=== PATIENT | female | born 1935 | race American Indian/Alaskan Native ===

== ENCOUNTER 2017-09-16 11:49 | Inpatient (IN) | payer MEDICARE ==
[2017-09-16 11:53] VITALS: BMI 20.3
[2017-09-16 12:38] LABS: BASO # 0.1 K/uL (0.0-0.2); BASO % 0.9 % (0.0-2.0); EOS # 0.3 K/uL (0.0-0.7); EOS % 3.5 % (0.0-4.0); HEMATOCRIT 28.8 % (34.0-47.0); LYMPH # 1.8 K/uL (1.0-4.3); LYMPH % 21.1 % (20.0-40.0); MEAN CELL VOLUME 90.3 fL (81.0-99.0); MEAN CORPUSCULAR HEMOGLOBIN 29.8 pg (27.0-31.0); MEAN CORPUSCULAR HGB CONC 33.1 g/dL (33.0-37.0); MEAN PLATELET VOLUME 6.9 fL (7.2-11.7); MONO # 0.5 K/uL (0.0-0.8); MONO % 5.7 % (0.0-10.0); RED CELL DISTRIBUTION WIDTH 16.3 % (11.5-14.5); WHITE BLOOD COUNT 8.6 K/uL (4.8-10.8)
--- NOTE | 2017-09-16 12:49 | C.PDOC ---
History Of Present Illness 82 yr old female w/PMHx of iron def anemia, sent by Dr. Peacock for evaluation of rectal bleeding associated with fatigue and weight loss for the past few weeks. As per Dr. Peacock, multiple attempts were made for an outpatient colonoscopy were made but patient was unable to tolerate the prep at home. At present time, patient reports of rectal bleeding described as true bright red blood associated with intermittent diffuse lower abdominal pain. Otherwise, Patient denies recent antibiotic course, fever, chest pain, SOB, dyspnea, diaphoresis, palpitation, vomiting, weakness or numbness. Time Seen by Provider: 09/16/17 11:59 Chief Complaint (Nursing): GI Problem History Per: Patient History/Exam Limitations: no limitations Onset/Duration Of Symptoms: Days (Few weeks) Current Symptoms Are (Timing): Still Present Number Of Bleeding Episodes: Multiple: Past Medical History Reviewed: Historical Data, Nursing Documentation, Vital Signs Vital Signs: Last Vital Signs Temp 97.9 F 09/16/17 17:12 Pulse 55 L 09/16/17 17:12 Resp 20 09/16/17 17:12 BP 148/66 09/16/17 17:12 Pulse Ox 98 09/16/17 17:12 - Medical History PMH: Fractures (RIGHT FOOT-NO SURGERY), HTN, Hypothyroidism Family History: States: No Known Family Hx - Social History Hx Alcohol Use: No Hx Substance Use: No Review Of Systems Except As Marked, All Systems Reviewed And Found Negative. Constitutional: Positive for: Weight loss, Other ((+) Fatigue). Negative for: Fever Cardiovascular: Negative for: Chest Pain Respiratory: Negative for: Shortness of Breath Gastrointestinal: Positive for: Abdominal Pain (Lower), Other ((+) Rectal bleeding). Negative for: Nausea, Vomiting Neurological: Negative for: Weakness, Numbness Physical Exam - Physical Exam Appears: Well, Non-toxic, No Acute Distress Skin: Warm, Dry, No Rash Head: Normacephalic Eye(s): bilateral: PERRL Nose: No Flaring, No Discharge Oral Mucosa: Moist Throat: No Erythema, No Drooling Neck: Trachea Midline, Supple Respiratory: No Decreased Breath Sounds, No Accessory Muscle Use, No Rales, No Rhonchi, No Stridor, No Wheezing Gastrointestinal/Abdominal: Normal Exam, Soft, No Tenderness, No Guarding, No Rebound Rectal: Rectal Tone (normal), Hemorrhoids (External hemorrhoid. Non thrombosis. True blood noted.) Back: No CVA Tenderness Extremity: No Pedal Edema, No Swelling Neurological/Psych: Oriented x3, Normal Speech, Normal Motor ED Course And Treatment - Laboratory Results Result Diagrams: 09/16/17 12:34 1217 12:34 ECG: Interpreted By Me, Viewed By Me ECG Rhythm: Sinus Rhythm Interpretation Of ECG: No acute ST/T wave changes. Rate From EC (BPM) O2 Sat by Pulse Oximetry: 98 (RA) Pulse Ox Interpretation: Normal () - Radiology CXR: Interpreted by Me, Viewed By Me Progress Note: Case discussed with GI, plan for colonoscopy tomorrow AM for further evaluation of anemia associated with GI bleed. As per , no imaging requested in ED. Case discussed with and admission arranged. Medical Decision Making Medical Decision Making: PLAN: * EKG * CBC * CMP * Urinalysis Disposition - Disposition Disposition: HOSPITALIZED Disposition Time: 13:47 Condition: STABLE - Clinical Impression Clinical Impression: Gastrointestinal hemorrhage - PA / PERINATAL NURSE / Resident Statement MD/DO has reviewed & agrees with the documentation as recorded. - Scribe Statement The provider has reviewed the documentation as recorded by the Scribe Michelle Escobar All medical record entries made by the Dainaibloc were at my direction and personally dictated by me. I have reviewed the chart and agree that the record accurately reflects my personal performance of the history, physical exam, medical decision making, and the department course for this patient. I have also personally directed, reviewed, and agree with the discharge instructions and disposition.
[2017-09-16 12:50] LABS: ALB/GLOB RATIO 0.9 (1.0-2.1); BILIRUBIN,TOTAL 0.6 mg/dL (0.2-1.3); POTASSIUM 4.3 mmol/L (3.6-5.2); TOTAL PROTEIN 7.1 g/dL (6.3-8.3)
--- NOTE | 2017-09-16 13:09 | CP.PCM.CON ---
<Melissa Sevilla - Last Filed: 09/16/17 14:58> History of Present Illness - History of Present Illness History of Present Illness: GI Fellow PGY 4 Consult Note This is a 82 year old female with history of hypothyroidism, HTN who is presenting to ER with complaints of rectal bleeding. Pt was initially seen in the GI office for screening colonoscopy. She does report a 40 pound weight loss over the past 4 years with intermittent LLQ abdominal pain and intermittent rectal bleeding recently over the past 3 months. She had a colonoscopy 5 years ago which was normal per patient. Pt was scheduled as an outpt for colonoscopy however she was unable to tolerate bowel prep and procedure had to be canceled four times. Pt's Hgb was 8.8 in June of 2017 and in ER today Hgb 9.5. ROS: A 12pt ROS was negative except as above. PmHx: As stated in HPI PsHx: Denies SHx: Denies alcohol, former smoker, denies drugs FHx: Denies family hx of colon cancer Past Patient History - Past Medical History & Family History Past Medical History?: Yes - Past Social History Smoking Status: Never Smoked - CARDIAC Hx Hypertension: Yes - PULMONARY Hx Respiratory Disorders: No - NEUROLOGICAL Hx Neurological Disorder: No - HEENT Hx HEENT Problems: No - RENAL Hx Chronic Kidney Disease: No - ENDOCRINE/METABOLIC Hx Hypothyroidism: Yes - HEMATOLOGICAL/ONCOLOGICAL Hx Blood Disorders: No - INTEGUMENTARY Hx Dermatological Problems: No - MUSCULOSKELETAL/RHEUMATOLOGICAL Hx Fractures: Yes (RIGHT FOOT-NO SURGERY) - GASTROINTESTINAL Hx Gastrointestinal Disorders: No - GENITOURINARY/GYNECOLOGICAL Hx Genitourinary Disorders: No - PSYCHIATRIC Hx Substance Use: No - SURGICAL HISTORY Hx Surgeries: Yes Other/Comment: HX: SOME TYPE OF THYROID SURGERY- PT. NOT SURE IF TOTAL. - ANESTHESIA Hx Anesthesia: Yes Hx Anesthesia Reactions: No Hx Malignant Hyperthermia: No Meds Allergies/Adverse Reactions: Allergies Allergy/AdvReac Type Severity Reaction Status Date / Time No Known Allergies Allergy Verified 09/16/17 12:02 - Medications Medications: Current Medications Bisacodyl (Dulcolax) 10 mg PO ONCE ONE Stop: 09/16/17 15:01 Polyethylene Glycol/Electrolytes (Golytely) 4,000 ml PO ONCE ONE Stop: 09/16/17 14:05 Results - Vital Signs Recent Vital Signs: Last Vital Signs Temp 98.9 F 09/16/17 11:49 Pulse 76 09/16/17 11:49 Resp 20 09/16/17 11:49 BP 159/67 H 09/16/17 11:49 Pulse Ox 98 09/16/17 12:58 - Labs Result Diagrams: 09/16/17 12:34 09/16/17 12:34 Labs: Laboratory Results - last 24 hr 09/16/17 09/16/17 09/16/17 12:34 12:34 12:34 WBC 8.6 RBC 3.19 L Hgb 9.5 L Hct 28.8 L MCV 90.3 MCH 29.8 MCHC 33.1 RDW 16.3 H Plt Count 331 MPV 6.9 L Neut % (Auto) 68.8 Lymph % (Auto) 21.1 [place] % (Auto) 5.7 Eos % (Auto) 3.5 Baso % (Auto) 0.9 Neut # 5.9 Lymph # 1.8 [place] # 0.5 Eos # 0.3 Baso # 0.1 PT 11.5 INR 1.0 APTT 32 Sodium 139 Potassium 4.3 Chloride 104 Carbon Dioxide 33 H Anion Gap 6 L BUN 14 Creatinine 1.1 Est GFR ( Amer) 58 Est GFR (Non-Af Amer) 48 Random Glucose 103 Calcium 8.0 L Total Bilirubin 0.6 AST 24 ALT 31 Alkaline Phosphatase 62 Total Protein 7.1 Albumin 3.3 L Globulin 3.8 Albumin/Globulin Ratio 0.9 L Lipase 24 Assessment & Plan - Assessment and Plan (Free Text) Assessment: This is a 82yF presenting with complaints of rectal bleeding, abdominal pain and weight loss. Plan: -Continue supportive care with IVF hydration and monitor labs -Hgb stable at this time with no active GI bleeding, monitor H/H and transfuse as needed -Will plan for EGD/colonoscopy given unintentional weight loss, abdominal pain, and rectal bleeding in elderly patient, r/o underlying malignancy -Will start on clear liquid diet today, NPO after midnight for procedure -Will start bowel prep with Golytely today and Dulcolax po -Will check labs in am -Will continue to follow closely <Justin Sommer Y - Last Filed: 09/16/17 15:09> Meds - Medications Medications: Current Medications Bisacodyl (Dulcolax) 10 mg PO ONCE ONE Stop: 09/16/17 15:01 Last Admin: 09/16/17 14:36 Dose: 10 mg Sodium Chloride (Sodium Chloride 0.9%) 1,000 mls @ 60 mls/hr IV .[id number] SUMIT Results - Vital Signs Recent Vital Signs: Last Vital Signs Temp 99 F 09/16/17 14:41 Pulse 61 09/16/17 14:41 Resp 15 09/16/17 14:41 BP 148/74 09/16/17 14:41 Pulse Ox 100 09/16/17 14:41 - Labs Result Diagrams: 09/16/17 12:34 09/16/17 12:34 Labs: Laboratory Results - last 24 hr 09/16/17 09/16/17 09/16/17 12:34 12:34 12:34 WBC 8.6 RBC 3.19 L Hgb 9.5 L Hct 28.8 L MCV 90.3 MCH 29.8 MCHC 33.1 RDW 16.3 H Plt Count 331 MPV 6.9 L Neut % (Auto) 68.8 Lymph % (Auto) 21.1 [place] % (Auto) 5.7 Eos % (Auto) 3.5 Baso % (Auto) 0.9 Neut # 5.9 Lymph # 1.8 [place] # 0.5 Eos # 0.3 Baso # 0.1 PT 11.5 INR 1.0 APTT 32 Sodium 139 Potassium 4.3 Chloride 104 Carbon Dioxide 33 H Anion Gap 6 L BUN 14 Creatinine 1.1 Est GFR ( Amer) 58 Est GFR (Non-Af Amer) 48 Random Glucose 103 Calcium 8.0 L Total Bilirubin 0.6 AST 24 ALT 31 Alkaline Phosphatase 62 Total Protein 7.1 Albumin 3.3 L Globulin 3.8 Albumin/Globulin Ratio 0.9 L Lipase 24 Attending/Attestation - Attestation I have personally seen and examined this patient.: Yes I have fully participated in the care of the patient.: Yes I have reviewed all pertinent clinical information: Yes Notes (Text): 09/16/17 15:00 I have seen and examined patient with GI fellow. Agree with above documentation with the following additions. In brief, this is an 82 year old female with history of HTN, hypothyroidism who presents to hospital with complaint of fatigue and rectal bleeding. She reports symptoms getting progressively worse over the past 3 months. She describes having fresh red blood along with bowel movements and also a 40 pound unintentional weight loss over the past one year. Outpatient bloodwork was significant for microcytic iron deficiency anemia. She was scheduled for outpatient endoscopic evaluation but could not tolerate bowel preparation. Due to clinical deterioration, she was sent to hospital for further evaluation and workup. She denies abdominal pain, nausea, vomiting, fever/chills. Review of vitals from today shows elevated BP. Physical examination: General: well appearing, resting comfortably in bed HEENT: EOMI, normal appearing sclera Chest: CTA B/L CV: RRR S1S2 Abdomen: soft, non tender to palpation in four quadrants, no palpable hepato/ splenomegaly Ext: normal, no pitting edema Skin: normal, no lesions or evidence of skin break Neuro: AAOx3, CN 3-12 intact Psych: mood, affect appropriate Rectal bleeding Microcytic iron deficiency anemia HTN Unexplained weight loss - Liquid diet as tolerated - H/H stable, continue to monitor - Will plan for EGD/colonoscopy tomorrow for further evaluation of microcytic iron deficiency and unexplained weight loss in elderly patient, must rule out underlying malignancy - Outpatient CT imaging from July 2017 reviewed by me showing no gross intra abdominal pathology, though study was performed without contrast - Begin bowel preparation today, NPO after midnight - Further management and plan following results of endoscopic evaluation
[2017-09-16] MEDS ORDERED: Peg-Electrolyte Oral Soln 4L (Golytely) PO ONE (14:04)
[2017-09-16 15:00] LABS: RBC URINE 6 /hpf (0-3); URINE BACTERIA RARE (<OCC); URINE BILIRUBIN NEGATIVE (NEGATIVE); URINE COLOR Yellow (YELLOW); URINE GLUCOSE (UA) NORMAL (Normal); URINE KETONE NEGATIVE (NEGATIVE); URINE LEUKOCYTE ESTERASE NEG Leu/uL (Negative); URINE PROTEIN NEGATIVE (NEGATIVE); URINE UROBILINOGEN NORMAL mg/dL (0.2-1.0); WBC URINE 2 /hpf (0-5)
[2017-09-16] MEDS ORDERED: Bisacodyl 5mg EC Tab PO ONE (15:00)
[2017-09-16 15:01] LABS: URINE BLOOD 1+ (NEGATIVE)
[2017-09-16] MEDS ORDERED: Sodium Chloride 0.9% 1,000 ML ONE (15:07)
[2017-09-16] MEDS: Sodium Chloride 0.9% 1,000 ML IV SCH (18:54)
--- NOTE | 2017-09-16 20:47 | CARD ---
APPROVED REPORT EKG Measurement Heart [id number] <Conclusion> Normal sinus rhythm with sinus arrhythmia Nonspecific T wave abnormality Abnormal ECG
--- NOTE | 2017-09-16 22:00 | CP.PCM.HP ---
History of Present Illness - History of Present Illness History of Present Illness: CC: admitted for colonoscopy HPI:This is a 82 year old female who is known case of colon cancer with history of hypothyroidism, HTN who is presenting to ER with complaints of rectal bleeding. Pt refused any intervention for her colon cancer in past, but now when she was initially seen in the GI office report a 40 pound weight loss over the past 4 years with intermittent LLQ abdominal pain and intermittent rectal bleeding recently over the past 3 months. She had a colonoscopy 5 years ago which was normal per patient. Pt was scheduled as an outpt for colonoscopy however she was unable to tolerate bowel prep and procedure had to be canceled four times. Pt's Hgb was 8.8 in June of 2017 and in ER today Hgb 9.5. ROS: A 12pt ROS was negative except as above. PmHx: As stated in HPI PsHx: Denies SHx: Denies alcohol, former smoker, denies drugs FHx: Denies family hx of colon cancer Present on Admission - Present on Admission Any Indicators Present on Admission: Yes Review of Systems - Review of Systems Systems not reviewed;Unavailable: Acuity of Condition - Constitutional Constitutional: Fatigue, Lethargy, Weight Loss - EENT Eyes: absent: As Per HPI, Blind Spots, Blurred Vision, Change in Vision, Decreased Night Vision, Diplopia, Discharge, Dry Eye, Exophthalmos, Floaters, Irritation, Itchy Eyes, Loss of Peripheral Vision, Pain, Photophobia, Requires Corrective Lenses, Sees Flashes, Spots in Vision, Tunnel Vision, Other Visual Disturbances, Loss of Vision, Other Nose/Mouth/Throat: absent: As Per HPI, Epistaxis, Nasal Congestion, Nasal Discharge, Nasal Obstruction, Nasal Trauma, Nose Pain, Post Nasal Drip, Sinus Pain, Sinus Pressure, Bleeding Gums, Change in Voice, Dental Pain, Dry Mouth, Dysphagia, Halitosis, Hoarsness, Lip Swelling, Mouth Lesions, Mouth Pain, Odynophagia, Sore Throat, Throat Swelling, Tongue Swelling, Facial Pain, Neck Pain, Neck Mass, Other - Cardiovascular Cardiovascular: absent: As Per HPI, Acrocyanosis, Chest Pain, Chest Pain at Rest , Chest Pain with Activity, Claudication, Diaphoresis, Dyspnea, Dyspnea on Exertion, Edema, Irregular Heart Rhythm, Pain Radiating to Arm/Neck/Jaw, Leg Edema, Leg Ulcers, Lightheadedness, Orthopnea, Palpitations, Paroxysmal Nocturnal Dyspnea, Pedal Edema, Radiating Pain, Rapid Heart Rate, Slow Heart Rate, Syncope, Other - Respiratory Respiratory: absent: As Per HPI, Cough, Dyspnea, Hemoptysis, Dyspnea on Exertion , Wheezing, Snoring, Stridor, Pain on Inspiration, Chest Congestion, Excessive Mucous Production, Change in Mucous Color, Pain with Coughing, Other - Gastrointestinal Gastrointestinal: Abdominal Pain - Genitourinary Genitourinary: absent: As Per HPI, Change in Urinary Stream, Difficulty Urinating, Dysuria, Flank Pain, Hematuria, Pyuria, Nocturia, Urinary Incontinence, Urinary Frequency, Urinary Hesitance, Urinary Urgency, Voiding Freq/Small Amts, Freq UTI, Hx Renal/Bladder Calculi, Hx /Renal Surgery, Bladder Distension, Other Past Patient History - Past Medical History & Family History Past Medical History?: Yes - Past Social History Smoking Status: Former Smoker - CARDIAC Hx Hypertension: Yes - PULMONARY Hx Respiratory Disorders: No - NEUROLOGICAL Hx Neurological Disorder: No - HEENT Hx HEENT Problems: No - RENAL Hx Chronic Kidney Disease: No - ENDOCRINE/METABOLIC Hx Hypothyroidism: Yes - HEMATOLOGICAL/ONCOLOGICAL Hx Blood Disorders: No - INTEGUMENTARY Hx Dermatological Problems: No - MUSCULOSKELETAL/RHEUMATOLOGICAL Hx Falls: Yes Hx Fractures: Yes (RIGHT FOOT-NO SURGERY) - GASTROINTESTINAL Hx Gastrointestinal Disorders: No - GENITOURINARY/GYNECOLOGICAL Hx Genitourinary Disorders: No - PSYCHIATRIC Hx Psychophysiologic Disorder: No Hx Substance Use: No - SURGICAL HISTORY Hx Surgeries: Yes Other/Comment: HX: SOME TYPE OF THYROID SURGERY- PT. NOT SURE IF TOTAL. - ANESTHESIA Hx Anesthesia: Yes Hx Anesthesia Reactions: No Hx Malignant Hyperthermia: No Has any member of the family had a problem w/ anesthesia?: No Meds Allergies/Adverse Reactions: Allergies Allergy/AdvReac Type Severity Reaction Status Date / Time No Known Allergies Allergy Verified 09/16/17 12:02 Physical Exam - Constitutional Appears: No Acute Distress, Chronically Ill - Eye Exam Eye Exam: EOMI, Normal appearance, PERRL Pupil Exam: NORMAL ACCOMODATION, PERRL - Respiratory Exam Respiratory Exam: Clear to Auscultation Bilateral, NORMAL BREATHING PATTERN - Cardiovascular Exam Cardiovascular Exam: REGULAR RHYTHM - GI/Abdominal Exam GI & Abdominal Exam: Tenderness - Rectal Exam Rectal Exam: Deferred Results - Vital Signs Recent Vital Signs: Last Vital Signs Temp 97.9 F 09/16/17 17:12 Pulse 55 L 09/16/17 17:12 Resp 20 09/16/17 17:12 BP 148/66 09/16/17 17:12 Pulse Ox 98 09/16/17 18:52 - Labs Result Diagrams: 09/16/17 12:34 09/16/17 12:34 Labs: Laboratory Results - last 24 hr 09/16/17 09/16/17 09/16/17 12:34 12:34 12:34 WBC 8.6 RBC 3.19 L Hgb 9.5 L Hct 28.8 L MCV 90.3 MCH 29.8 MCHC 33.1 RDW 16.3 H Plt Count 331 MPV 6.9 L Neut % (Auto) 68.8 Lymph % (Auto) 21.1 [place] % (Auto) 5.7 Eos % (Auto) 3.5 Baso % (Auto) 0.9 Neut # 5.9 Lymph # 1.8 [place] # 0.5 Eos # 0.3 Baso # 0.1 PT 11.5 INR 1.0 APTT 32 Sodium 139 Potassium 4.3 Chloride 104 Carbon Dioxide 33 H Anion Gap 6 L BUN 14 Creatinine 1.1 Est GFR ( Amer) 58 Est GFR (Non-Af Amer) 48 Random Glucose 103 Calcium 8.0 L Total Bilirubin 0.6 AST 24 ALT 31 Alkaline Phosphatase 62 Total Protein 7.1 Albumin 3.3 L Globulin 3.8 Albumin/Globulin Ratio 0.9 L Lipase 24 Urine Color Urine Clarity Urine pH Ur Specific [place] Urine Protein Urine Glucose (UA) Urine Ketones Urine Blood Urine Nitrate Urine Bilirubin Urine Urobilinogen Ur Leukocyte Esterase Urine WBC (Auto) Urine RBC (Auto) Ur Squamous Epith Cells Urine Bacteria 09/16/17 14:38 WBC RBC Hgb Hct MCV MCH MCHC RDW Plt Count MPV Neut % (Auto) Lymph % (Auto) [place] % (Auto) Eos % (Auto) Baso % (Auto) Neut # Lymph # [place] # Eos # Baso # PT INR APTT Sodium Potassium Chloride Carbon Dioxide Anion Gap BUN Creatinine Est GFR ( Amer) Est GFR (Non-Af Amer) Random Glucose Calcium Total Bilirubin AST ALT Alkaline Phosphatase Total Protein Albumin Globulin Albumin/Globulin Ratio Lipase Urine Color Yellow Urine Clarity Clear Urine pH 6.0 Ur Specific [place] 1.011 Urine Protein Negative Urine Glucose (UA) Normal Urine Ketones Negative Urine Blood 1+ H Urine Nitrate Negative Urine Bilirubin Negative Urine Urobilinogen Normal Ur Leukocyte Esterase Neg Urine WBC (Auto) 2 Urine RBC (Auto) 6 H Ur Squamous Epith Cells 1 Urine Bacteria Rare Assessment & Plan (1) Abdominal pain Assessment and Plan: Rectal bleeding Microcytic iron deficiency anemia HTN Unexplained weight loss - Liquid diet as tolerated - H/H stable, continue to monitor - Will plan for EGD/colonoscopy tomorrow for further evaluation of microcytic iron deficiency and unexplained weight loss in elderly patient, must rule out underlying malignancy - Outpatient CT imaging from July 2017 reviewed by me showing no gross intra abdominal pathology, though study was performed without contrast - Begin bowel preparation today, NPO after midnight - Further management and plan following results of endoscopic evaluation Status: Acute (2) Gastrointestinal hemorrhage Status: Acute
[2017-09-17 07:00] LABS: HEMATOCRIT 23.9 % (34.0-47.0); MEAN CELL VOLUME 90.1 fL (81.0-99.0); MEAN CORPUSCULAR HGB CONC 34.4 g/dL (33.0-37.0); MEAN PLATELET VOLUME 7.1 fL (7.2-11.7); RED CELL DISTRIBUTION WIDTH 16.2 % (11.5-14.5); WHITE BLOOD COUNT 7.1 K/uL (4.8-10.8)
[2017-09-17 07:07] LABS: INR 1.1
[2017-09-17 07:53] LABS: ALB/GLOB RATIO 1.3 (1.0-2.1); ALKALINE PHOSPHATASE 49 U/L (38-126); ALT/SGPT 28 U/L (9-52); AST/SGOT 30 U/L (14-36); BILIRUBIN,TOTAL 0.4 mg/dL (0.2-1.3); BLOOD UREA NITROGEN 12 mg/dL (7-17); CALCIUM 7.6 mg/dl (8.6-10.4); CARBON DIOXIDE 31 mmol/L (22-30); CHLORIDE 108 mmol/L (98-107); GFR AFRICAN-AMERICAN > 60; GLUCOSE,RANDOM 78 mg/dL (65-105); POTASSIUM 4.3 mmol/L (3.6-5.2); SODIUM 140 mmol/L (132-148); TOTAL PROTEIN 4.8 g/dL (6.3-8.3)
[2017-09-17] MEDS ORDERED: Propofol 10 mg/ml Inj (20 ML) ONE ×2 (11:43)
[2017-09-17] MEDS ORDERED: Lidocaine Hydrochloride 5 ML INJ ONE (11:45)
[2017-09-17] MEDS: Sodium Chloride 0.9% 1,000 ML IV SCH (13:23)
--- NOTE | 2017-09-17 14:54 | CP.PCM.CON ---
Past Patient History - Past Medical History & Family History Past Medical History?: Yes - Past Social History Smoking Status: Former Smoker - CARDIAC Hx Hypertension: Yes - PULMONARY Hx Respiratory Disorders: No - NEUROLOGICAL Hx Neurological Disorder: No - HEENT Hx HEENT Problems: No - RENAL Hx Chronic Kidney Disease: No - ENDOCRINE/METABOLIC Hx Hypothyroidism: Yes - HEMATOLOGICAL/ONCOLOGICAL Hx Blood Disorders: No - INTEGUMENTARY Hx Dermatological Problems: No - MUSCULOSKELETAL/RHEUMATOLOGICAL Hx Falls: Yes Hx Fractures: Yes (RIGHT FOOT-NO SURGERY) - GASTROINTESTINAL Hx Gastrointestinal Disorders: No - GENITOURINARY/GYNECOLOGICAL Hx Genitourinary Disorders: No - PSYCHIATRIC Hx Psychophysiologic Disorder: No Hx Substance Use: No - SURGICAL HISTORY Hx Surgeries: Yes Other/Comment: HX: SOME TYPE OF THYROID SURGERY- PT. NOT SURE IF TOTAL. - ANESTHESIA Hx Anesthesia: Yes Hx Anesthesia Reactions: No Hx Malignant Hyperthermia: No Has any member of the family had a problem w/ anesthesia?: No Meds Allergies/Adverse Reactions: Allergies Allergy/AdvReac Type Severity Reaction Status Date / Time No Known Allergies Allergy Verified 09/16/17 12:02 - Medications Medications: Current Medications Sodium Chloride (Sodium Chloride 0.9%) 1,000 mls @ 60 mls/hr IV .[id number] SUMIT Last Admin: 09/17/17 13:23 Dose: 60 mls/hr Lactated Ringer's (Lactated Ringer's 500ml) 500 mls @ 75 mls/hr IV .[id number] SUMIT Iohexol (Omnipaque 240 (50 Ml)) 50 ml PO ONCE ONE Stop: 09/17/17 15:01 Results - Vital Signs Recent Vital Signs: Last Vital Signs Temp 96.8 F L 09/17/17 12:20 Pulse 58 L 09/17/17 12:50 Resp 12 09/17/17 12:50 BP 153/86 H 09/17/17 12:50 Pulse Ox 100 09/17/17 12:50 - Labs Result Diagrams: 09/17/17 06:48 09/17/17 06:48 Labs: Laboratory Results - last 24 hr 09/16/17 09/17/17 09/17/17 14:38 06:48 06:48 WBC 7.1 RBC 2.65 L Hgb 8.2 L Hct 23.9 L MCV 90.1 MCH 31.0 MCHC 34.4 RDW 16.2 H Plt Count 262 MPV 7.1 L PT 12.2 INR 1.1 Sodium Potassium Chloride Carbon Dioxide Anion Gap BUN Creatinine Est GFR ( Amer) Est GFR (Non-Af Amer) Random Glucose Calcium Total Bilirubin AST ALT Alkaline Phosphatase Total Protein Albumin Globulin Albumin/Globulin Ratio Urine Color Yellow Urine Clarity Clear Urine pH 6.0 Ur Specific [place] 1.011 Urine Protein Negative Urine Glucose (UA) Normal Urine Ketones Negative Urine Blood 1+ H Urine Nitrate Negative Urine Bilirubin Negative Urine Urobilinogen Normal Ur Leukocyte Esterase Neg Urine WBC (Auto) 2 Urine RBC (Auto) 6 H Ur Squamous Epith Cells 1 Urine Bacteria Rare 09/17/17 06:48 WBC RBC Hgb Hct MCV MCH MCHC RDW Plt Count MPV PT INR Sodium 140 Potassium 4.3 Chloride 108 H Carbon Dioxide 31 H Anion Gap 6 L BUN 12 Creatinine 0.9 Est GFR ( Amer) > 60 Est GFR (Non-Af Amer) > 60 Random Glucose 78 Calcium 7.6 L Total Bilirubin 0.4 AST 30 ALT 28 Alkaline Phosphatase 49 Total Protein 4.8 L Albumin 2.7 L Globulin 2.1 L Albumin/Globulin Ratio 1.3 Urine Color Urine Clarity Urine pH Ur Specific [place] Urine Protein Urine Glucose (UA) Urine Ketones Urine Blood Urine Nitrate Urine Bilirubin Urine Urobilinogen Ur Leukocyte Esterase Urine WBC (Auto) Urine RBC (Auto) Ur Squamous Epith Cells Urine Bacteria
[2017-09-17] MEDS ORDERED: Iohexol 240 (50 ml) PO ONE (15:00)
[2017-09-17 17:47] LABS: BASO # 0.1 K/uL (0.0-0.2); BASO % 0.6 % (0.0-2.0); EOS # 0.3 K/uL (0.0-0.7); EOS % 3.2 % (0.0-4.0); HEMATOCRIT 27.9 % (34.0-47.0); LYMPH # 1.7 K/uL (1.0-4.3); LYMPH % 17.2 % (20.0-40.0); MEAN CELL VOLUME 91.1 fL (81.0-99.0); MEAN CORPUSCULAR HGB CONC 32.9 g/dL (33.0-37.0); MEAN PLATELET VOLUME 7.2 fL (7.2-11.7); MONO # 0.6 K/uL (0.0-0.8); MONO % 6.1 % (0.0-10.0); RED CELL DISTRIBUTION WIDTH 16.2 % (11.5-14.5); WHITE BLOOD COUNT 9.6 K/uL (4.8-10.8)
[2017-09-17] MEDS ORDERED: Iodixanol 320 mg/ml 150 ml Bottle IV ONE (17:47)
--- NOTE | 2017-09-17 18:38 | CT ---
PROCEDURE: CT Abdomen and Pelvis with contrast HISTORY: distal colon obstructing lesion COMPARISON: None. TECHNIQUE: Contrast dose: 100 cc Visipaque 320 Radiation dose: Total exam DLP = 309.50 mGy-cm. This CT exam was performed using one or more of the following dose reduction techniques: Automated exposure control, adjustment of the mA and/or kV according to patient size, and/or use of iterative reconstruction technique. FINDINGS: LOWER THORAX: No suspicious pulmonary nodules in the visualize lower lung christina. Edema about the soft tissues directly both breasts suggest a systemic etiology. LIVER: Hepatic steatosis. Tiny sub cm cystic lesions too small to characterize with a higher degree of certainty, clarity. Although likely benign, of hepatic metastatic disease should be considered. GALLBLADDER AND BILE DUCTS: Unremarkable. PANCREAS: The pancreas is atrophic, of visualized pancreatic duct and more proximal pancreas are unremarkable, there is no obstructing lesion, evidence stricture or other explanation common the etiology for this finding. SPLEEN: Unremarkable. ADRENALS: Unremarkable. No mass. KIDNEYS AND URETERS: Unremarkable. No hydronephrosis. No solid mass. Incidental finding(s): Simple cyst left kidney 3.9 x 4.8 cm. Smaller left renal cyst also identified measuring 2.1 cm. VASCULATURE: Unremarkable. No aortic aneurysm. BOWEL: Large fungating circumferential, polypoid mass and elevating the sigmoid colon sparing the descending colon extending to the rectum, the anal rectal verge is unaffected. The mass extends over a distance of approximately 12 cm. Despite the size and circumferential nature the proximal colon is dilated but not obstructed. Focal thickening of the wall of the proximal stomach primarily about the lesser curve. This extends to cardia/gastroesophageal junction. The area of interest is marked on the axial images, confirmed on orthogonal planes. APPENDIX: Normal appendix. PERITONEUM: Unremarkable. No free fluid. No free air. LYMPH NODES: Unremarkable. No enlarged lymph nodes. BLADDER: Unremarkable. REPRODUCTIVE: Unremarkable. BONES: No acute fracture. OTHER FINDINGS: IMPRESSION: 1. Large rectal mass described in greater detail above. 2. Gastric mass along the lesser curve extending to the gastroesophageal junction. Follow-up advised. 3. Sub cm masses in the liver too small to characterize with certainty. In the clinical setting of rectal mass, rectal bleeding and suspected rectal neoplasm follow-up of the liver lesions advised. Additional benign and/or incidental findings described above.
--- NOTE | 2017-09-17 21:02 | CT ---
EXAM: CT Chest Without Intravenous Contrast EXAM DATE/TIME: 09/17/2017 6:39 PM CLINICAL HISTORY: 82 years old, female; Signs and symptoms; Shortness of breath; Additional info: Gi bleed; rectal and gastric masses seen on CT abdomen pelvis 09/17/17 TECHNIQUE: Axial computed tomography images of the chest without intravenous contrast. All CT scans at this facility use one or more dose reduction techniques, viz.: automated exposure control; ma/kV adjustment per patient size (including targeted exams where dose is matched to indication; i.e. head); or iterative reconstruction technique. Coronal and sagittal reformatted images were created and reviewed. COMPARISON: There are no prior studies for comparison. FINDINGS: Lungs and pleural spaces: Trachea and main bronchi are patent. The lungs are well inflated. There is minimal apical scarring. There is prominence of interstitial markings. There is atelectasis/scarring greatest in the lung bases. There are no pulmonary nodules. There are no effusions. Heart and vasculature: The heart is mildly enlarged. There is trace fluid in pericardial recesses.There are coronary artery calcifications. There are calcifications in the aorta.Aorta and main pulmonary artery are normal in caliber. Thyroid: Thyroid is not optimally demonstrated. There are multiple surgical clips in the right thyroid bed. Bones/joints: Bony structures are osteopenic with degenerative change. Soft tissues: unremarkable Mediastinum: Esophagus is not well demonstrated. There are no pathologically enlarged mediastinal nodes.Xiomy are not optimally evaluated without contrast material. Upper abdomen: There is a mass in the gastric fundus. There is a left renal cyst. IMPRESSION: No acute disease in the chest; prior thyroid surgery; gastric mass
--- NOTE | 2017-09-17 23:38 | CP.PCM.PN ---
Subjective - Date & Time of Evaluation Date of Evaluation: 09/17/17 Time of Evaluation: 18:40 - Subjective Subjective: Pt seen and examined, is found to have large mass in abdomen, pt is for OR , clinically stable Objective - Vital Signs/Intake and Output Vital Signs (last 24 hours): Temp Pulse Resp BP Pulse Ox 98 F 62 20 179/70 H 100 09/17/17 16:00 09/17/17 16:00 09/17/17 16:00 09/17/17 16:00 09/17/17 16:00 Intake and Output: 09/17/17 09/18/17 18:59 06:59 Intake Total 425 Balance 425 - Medications Medications: Current Medications Erythromycin (Erythocin) 1,000 mg PO ONCE ONE Stop: 09/18/17 14:01 Erythromycin (Erythocin) 1,000 mg PO ONCE ONE Stop: 09/18/17 15:01 Erythromycin (Erythocin) 1,000 mg PO ONCE ONE Stop: 09/18/17 22:01 Sodium Chloride (Sodium Chloride 0.9%) 1,000 mls @ 60 mls/hr IV .[id number] [facility] Last Admin: 09/17/17 13:23 Dose: 60 mls/hr Lactated Ringer's (Lactated Ringer's 500ml) 500 mls @ 75 mls/hr IV .Q6H40M [facility] Levothyroxine Sodium (Synthroid) 100 mcg PO DAILY@0630 [facility] Losartan Potassium (Cozaar) 100 mg PO DAILY [facility] Neomycin Sulfate (Neomycin Tab) 1,000 mg PO ONCE ONE Stop: 09/18/17 14:01 Neomycin Sulfate (Neomycin Tab) 1,000 mg PO ONCE ONE Stop: 09/18/17 15:01 Neomycin Sulfate (Neomycin Tab) 1,000 mg PO ONCE ONE Stop: 09/18/17 22:01 Polyethylene Glycol/Electrolytes (Golytely) 2,000 ml PO ONCE ONE Stop: 09/18/17 18:01 - Labs Labs: 09/17/17 17:26 09/17/17 06:48 PT 12.2 SECONDS (9.7-12.2) 09/17/17 06:48 INR 1.1 09/17/17 06:48 APTT 32 SECONDS (21-34) 09/16/17 12:34 - Constitutional Appears: No Acute Distress - Head Exam Head Exam: ATRAUMATIC, NORMAL INSPECTION, NORMOCEPHALIC - Eye Exam Eye Exam: EOMI, Normal appearance, PERRL Pupil Exam: NORMAL ACCOMODATION, PERRL - Respiratory Exam Respiratory Exam: Clear to Ausculation Bilateral, NORMAL BREATHING PATTERN - Cardiovascular Exam Cardiovascular Exam: REGULAR RHYTHM, +S1, +S2. absent: Murmur - GI/Abdominal Exam GI & Abdominal Exam: Soft, Normal Bowel Sounds. absent: Tenderness Assessment and Plan (1) Abdominal pain Status: Acute (2) Gastrointestinal hemorrhage Status: Acute
--- NOTE | 2017-09-18 00:03 | CON ---
DATE: 09/17/2017 HISTORY OF PRESENT ILLNESS: The patient is an 82-year-old woman admitted to the hospital on 09/16 on an urgent basis because of rectal bleeding. The other details of her past medical history are listed. PAST MEDICAL HISTORY: The medical history is also noted diabetes, hypertension, and smoking. PAST SURGICAL HISTORY: Includes thyroidectomy, hysterectomy. Both reportedly done for benign disease. SOCIAL HISTORY: She lives with her family who is very concerned about her. She has three sons. No one else has had intestinal problems. She is retired. She does not drink or smoke. REVIEW OF SYSTEMS: Thirteen-point is obtained. She denied any other systemic complaints including cardiac or neurological problems. She has had rectal bleeding. She has not had any problems or prior gynecological problems since her hysterectomy. PHYSICAL EXAMINATION: VITAL SIGNS: Her height and weight are as recorded on the emergency notes. Her blood pressure is stable at 110/70, pulse rate is 62. ABDOMEN: Exam is basically unremarkable without any tenderness or masses detailed. RECTAL: Exam does not show any palpable mass. It did show some loose liquid stool, but I was unable to palpate any mass on my digital rectal exam, which was done on the left lateral position. 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 RECOMMENDATIONS: My recommendation is that the patient have a CAT scan done that she then undergo surgery on a fairly urgent basis because this is partially obstructing. I think the CAT scan will give us a better idea as to whether or not this is a T2 or T3 lesion or whether any adjuvant therapy would be required, but we can get some better idea of this from the other imaging. We will follow the patient closely. Tentative plan is to carry out an intervention on Friday. Possibility of an ostomy was discussed and reviewed with the family. Xavier Miner Jr., MD
[2017-09-18] MEDS: Sodium Chloride 0.9% 1,000 ML IV SCH (01:00)
[2017-09-18] MEDS: Lactated Ringer's 500 ML IV SCH (02:00)
[2017-09-18] MEDS: Levothyroxine 100 MCG TAB PO SCH (05:51)
--- NOTE | 2017-09-18 08:57 | CP.PCM.PN ---
Subjective - Date & Time of Evaluation Date of Evaluation: 09/18/17 Time of Evaluation: 06:45 - Subjective Subjective: Gen sx: Dr Miner Pt S&E. NAEO. Reports no pain, nausea, vomiting, fevers or chills. Denies any blood bowel movements. Pt is aware of findings on imaging and procedures, and is aware of plan for surgery tomorrow. Dr Miner d/w pt and daughter who is bedside. Pt for bowel prep today Objective - Vital Signs/Intake and Output Vital Signs (last 24 hours): Temp Pulse Resp BP Pulse Ox 98 F 75 20 124/53 L 96 09/18/17 08:36 09/18/17 08:36 09/18/17 08:36 09/18/17 08:36 09/18/17 08:36 Intake and Output: 09/18/17 09/18/17 06:59 18:59 Intake Total 630 Balance 630 - Medications Medications: Current Medications Erythromycin (Erythocin) 1,000 mg PO ONCE ONE Stop: 09/18/17 14:01 Erythromycin (Erythocin) 1,000 mg PO ONCE ONE Stop: 09/18/17 15:01 Erythromycin (Erythocin) 1,000 mg PO ONCE ONE Stop: 09/18/17 22:01 Lactated Ringer's (Lactated Ringer's 500ml) 500 mls @ 75 mls/hr IV .Q6H40M [facility] Last Admin: 09/18/17 02:00 Dose: Not Given Levothyroxine Sodium (Synthroid) 100 mcg PO DAILY@0630 [facility] Last Admin: 09/18/17 05:51 Dose: 100 mcg Losartan Potassium (Cozaar) 100 mg PO DAILY [facility] Neomycin Sulfate (Neomycin Tab) 1,000 mg PO ONCE ONE Stop: 09/18/17 14:01 Neomycin Sulfate (Neomycin Tab) 1,000 mg PO ONCE ONE Stop: 09/18/17 15:01 Neomycin Sulfate (Neomycin Tab) 1,000 mg PO ONCE ONE Stop: 09/18/17 22:01 Polyethylene Glycol/Electrolytes (Golytely) 2,000 ml PO ONCE ONE Stop: 09/18/17 18:01 - Labs Labs: 09/17/17 17:26 09/17/17 06:48 PT 12.2 SECONDS (9.7-12.2) 09/17/17 06:48 INR 1.1 09/17/17 06:48 APTT 32 SECONDS (21-34) 09/16/17 12:34 - Constitutional Appears: Non-toxic, No Acute Distress - ENT Exam ENT Exam: Mucous Membranes Moist - Respiratory Exam Respiratory Exam: absent: Accessory Muscle Use, Respiratory Distress - Cardiovascular Exam Cardiovascular Exam: REGULAR RHYTHM. absent: Tachycardia - GI/Abdominal Exam GI & Abdominal Exam: Soft. absent: Distended, Firm, Guarding, Rigid, Tenderness - Extremities Exam Extremities Exam: absent: Pedal Edema - Neurological Exam Neurological Exam: Alert, Awake, Oriented x3 Assessment and Plan - Assessment and Plan (Free Text) Assessment: 82F with near obstructing and bleeding mass in the recto-sigmoid junction Plan: NPO @ MN type and cross 2 units for tomorrow Bell-Condin prep w/ PEG today cleared by medicine for surgery d/w Dr Isidra Grimaldo, PGY3
--- NOTE | 2017-09-18 11:09 | CP.PCM.PN ---
<Melissa Sevilla - Last Filed: 09/18/17 11:07> Subjective - Date & Time of Evaluation Date of Evaluation: 09/18/17 Time of Evaluation: 07:05 - Subjective Subjective: GI Fellow PGY4 Progress Note Pt seen and evaluated at bedside, pt doing okay after colonoscopy no abdominal pain. Pt denies any rectal bleeding at this time, she is tolerating her clear liquid diet. ROS: A 12pt ROS was negative except as above. Objective - Vital Signs/Intake and Output Vital Signs (last 24 hours): Temp Pulse Resp BP Pulse Ox 98 F 75 20 124/53 L 96 09/18/17 08:36 09/18/17 08:36 09/18/17 08:36 09/18/17 08:36 09/18/17 08:36 Intake and Output: 09/18/17 09/18/17 06:59 18:59 Intake Total 630 Balance 630 - Medications Medications: Current Medications Erythromycin (Erythocin) 1,000 mg PO ONCE ONE Stop: 09/18/17 14:01 Erythromycin (Erythocin) 1,000 mg PO ONCE ONE Stop: 09/18/17 15:01 Erythromycin (Erythocin) 1,000 mg PO ONCE ONE Stop: 09/18/17 22:01 Lactated Ringer's (Lactated Ringer's 500ml) 500 mls @ 75 mls/hr IV .Q6H40M [facility] Last Admin: 09/18/17 02:00 Dose: Not Given Levothyroxine Sodium (Synthroid) 100 mcg PO DAILY@0630 [facility] Last Admin: 09/18/17 05:51 Dose: 100 mcg Losartan Potassium (Cozaar) 100 mg PO DAILY [facility] Last Admin: 09/18/17 10:10 Dose: 100 mg Neomycin Sulfate (Neomycin Tab) 1,000 mg PO ONCE ONE Stop: 09/18/17 14:01 Neomycin Sulfate (Neomycin Tab) 1,000 mg PO ONCE ONE Stop: 09/18/17 15:01 Neomycin Sulfate (Neomycin Tab) 1,000 mg PO ONCE ONE Stop: 09/18/17 22:01 Polyethylene Glycol/Electrolytes (Golytely) 2,000 ml PO ONCE ONE Stop: 09/18/17 18:01 - Labs Labs: 09/17/17 17:26 09/17/17 06:48 PT 12.2 SECONDS (9.7-12.2) 09/17/17 06:48 INR 1.1 09/17/17 06:48 APTT 32 SECONDS (21-34) 09/16/17 12:34 - Constitutional Appears: Non-toxic, No Acute Distress, Cachectic - Head Exam Head Exam: ATRAUMATIC, NORMAL INSPECTION, NORMOCEPHALIC - Eye Exam Eye Exam: EOMI, Normal appearance, PERRL Pupil Exam: PERRL - ENT Exam ENT Exam: Mucous Membranes Moist, Normal Exam - Neck Exam Neck Exam: Full ROM, Normal Inspection - Respiratory Exam Respiratory Exam: Clear to Ausculation Bilateral, NORMAL BREATHING PATTERN - Cardiovascular Exam Cardiovascular Exam: REGULAR RHYTHM, RRR - GI/Abdominal Exam GI & Abdominal Exam: Soft, Normal Bowel Sounds. absent: Distended, Guarding, Tenderness - Rectal Exam Rectal Exam: Deferred - Extremities Exam Extremities Exam: Full ROM, Normal Inspection - Back Exam Back Exam: NORMAL INSPECTION - Neurological Exam Neurological Exam: Alert, Awake, Oriented x3 - Psychiatric Exam Psychiatric exam: Normal Affect, Normal Mood - Skin Skin Exam: Dry, Intact, Normal Color, Warm Assessment and Plan - Assessment and Plan (Free Text) Assessment: This is a 82yF presenting with complaints of rectal bleeding, abdominal pain and weight loss. 1. Rectal mass 2. Unintentional weightloss 3. Abdominal pain, rectal bleeding Plan: -Continue supportive care with IVF hydration and monitor labs -Hgb stable at this time with no active GI bleeding, monitor H/H and transfuse as needed -Pt is s/p EGD/colonoscopy given unintentional weight loss, abdominal pain, and rectal bleeding in elderly patient, EGD negative for any malignancy, colonoscopy with 5cm recto-sigmoid mass -Appreciate surgical consultation and plan for OR tomorrow -Continue clear liquid diet today, NPO after midnight for surgery -Will continue to follow closely <Justin Sommer - Last Filed: 09/18/17 17:57> Objective - Vital Signs/Intake and Output Vital Signs (last 24 hours): Temp Pulse Resp BP Pulse Ox 97.6 F 72 20 169/83 H 99 09/18/17 15:15 09/18/17 15:15 09/18/17 15:15 09/18/17 15:15 09/18/17 15:15 Intake and Output: 09/18/17 09/18/17 06:59 18:59 Intake Total 630 Balance 630 - Medications Medications: Current Medications Erythromycin (Erythocin) 1,000 mg PO ONCE ONE Stop: 09/18/17 22:01 Guaifenesin (Robitussin) 200 mg PO Q4H PRN PRN Reason: Cough and congestion Last Admin: 09/18/17 13:46 Dose: 200 mg Lactated Ringer's (Lactated Ringer's 500ml) 500 mls @ 75 mls/hr IV .Q6H40M [facility] Last Admin: 09/18/17 02:00 Dose: Not Given Levothyroxine Sodium (Synthroid) 100 mcg PO DAILY@0630 [facility] Last Admin: 09/18/17 05:51 Dose: 100 mcg Losartan Potassium (Cozaar) 100 mg PO DAILY [facility] Last Admin: 09/18/17 10:10 Dose: 100 mg Neomycin Sulfate (Neomycin Tab) 1,000 mg PO ONCE ONE Stop: 09/18/17 22:01 Polyethylene Glycol/Electrolytes (Golytely) 2,000 ml PO ONCE ONE Stop: 09/18/17 18:01 Last Admin: 09/18/17 17:43 Dose: 2,000 ml - Labs Labs: 09/18/17 11:21 09/18/17 11:21 PT 12.2 SECONDS (9.7-12.2) 09/17/17 06:48 INR 1.1 09/17/17 06:48 APTT 32 SECONDS (21-34) 09/16/17 12:34 Attending/Attestation - Attestation I have personally seen and examined this patient.: Yes I have fully participated in the care of the patient.: Yes I have reviewed all pertinent clinical information, including history, physical exam and plan: Yes Notes (Text): 09/18/17 17:53 I have seen and examined patient with GI fellow. No acute events overnight, she is seen resting in bed comfortably eating breakfast. She denies abdominal pain, nausea, vomiting, fever/chills. Review of vitals from today are normal. 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 Patient planned for operative intervention tomorrow with Dr. Helton. - H/H stable, continue to monitor - CT imaging reviewed by me showing subcentimeter hepatic lesions, ?metastatic disease. Also noted is gastric fundic mass, though no intraluminal mass lesion present on EGD yesterday. 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 - Suggest oncology evaluation - Will continue to monitor patient clinical course
[2017-09-18 11:37] LABS: HEMATOCRIT 31.1 % (34.0-47.0); MEAN CELL VOLUME 91.1 fL (81.0-99.0); MEAN CORPUSCULAR HEMOGLOBIN 30.2 pg (27.0-31.0); MEAN CORPUSCULAR HGB CONC 33.1 g/dL (33.0-37.0); MEAN PLATELET VOLUME 7.4 fL (7.2-11.7); RED CELL DISTRIBUTION WIDTH 16.5 % (11.5-14.5); WHITE BLOOD COUNT 9.9 K/uL (4.8-10.8)
[2017-09-18 11:49] LABS: ALB/GLOB RATIO 1.3 (1.0-2.1); ALKALINE PHOSPHATASE 67 U/L (38-126); ALT/SGPT 33 U/L (9-52); AST/SGOT 29 U/L (14-36); BILIRUBIN,TOTAL 0.8 mg/dL (0.2-1.3); BLOOD UREA NITROGEN 12 mg/dL (7-17); CALCIUM 7.9 mg/dl (8.6-10.4); CARBON DIOXIDE 25 mmol/L (22-30); CHLORIDE 101 mmol/L (98-107); GFR AFRICAN-AMERICAN > 60; GLUCOSE,RANDOM 153 mg/dL (65-105); POTASSIUM 3.9 mmol/L (3.6-5.2); SODIUM 137 mmol/L (132-148); TOTAL PROTEIN 6.3 g/dL (6.3-8.3)
[2017-09-18] MEDS ORDERED: guaiFENesin 200 mg/10 ml Syrup UD PO PRN (12:32)
[2017-09-18] MEDS ORDERED: Erythromycin Stearat 250 mg Tab PO ONE ×3 (14:00→22:00)
[2017-09-18] MEDS ORDERED: Peg-Electrolyte Oral Soln 4L (Golytely) PO ONE (18:00)
--- NOTE | 2017-09-18 23:11 | CP.PCM.PN ---
Subjective - Date & Time of Evaluation Date of Evaluation: 09/18/17 Time of Evaluation: 20:10 - Subjective Subjective: Pt seen and examined she is seen resting in bed comfortably , she is for Or tommorow, for abdominal mass. No acute events overnight, She denies abdominal pain, nausea, vomiting, fever/chills. Objective - Vital Signs/Intake and Output Vital Signs (last 24 hours): Temp Pulse Resp BP Pulse Ox 97.6 F 72 20 169/83 H 99 09/18/17 15:15 09/18/17 15:15 09/18/17 15:15 09/18/17 15:15 09/18/17 15:15 - Medications Medications: Current Medications Guaifenesin (Robitussin) 200 mg PO Q4H PRN PRN Reason: Cough and congestion Last Admin: 09/18/17 13:46 Dose: 200 mg Lactated Ringer's (Lactated Ringer's 500ml) 500 mls @ 75 mls/hr IV .Q6H40M [facility] Last Admin: 09/18/17 02:00 Dose: Not Given Levothyroxine Sodium (Synthroid) 100 mcg PO DAILY@0630 [facility] Last Admin: 09/18/17 05:51 Dose: 100 mcg Losartan Potassium (Cozaar) 100 mg PO DAILY [facility] Last Admin: 09/18/17 10:10 Dose: 100 mg - Labs Labs: 09/18/17 11:21 09/18/17 11:21 PT 12.2 SECONDS (9.7-12.2) 09/17/17 06:48 INR 1.1 09/17/17 06:48 APTT 32 SECONDS (21-34) 09/16/17 12:34 - Constitutional Appears: No Acute Distress - Head Exam Head Exam: ATRAUMATIC, NORMAL INSPECTION, NORMOCEPHALIC - Eye Exam Eye Exam: EOMI, Normal appearance, PERRL Pupil Exam: NORMAL ACCOMODATION, PERRL - Respiratory Exam Respiratory Exam: Clear to Ausculation Bilateral, NORMAL BREATHING PATTERN - Cardiovascular Exam Cardiovascular Exam: REGULAR RHYTHM, +S1, +S2. absent: Murmur - GI/Abdominal Exam GI & Abdominal Exam: Soft, Normal Bowel Sounds. 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 Patient planned for operative intervention tomorrow with Dr. Helton. - H/H stable, continue to monitor - CT imaging reviewed by me showing subcentimeter hepatic lesions, ?metastatic disease. Also noted is gastric fundic mass, though no intraluminal mass lesion present on EGD yesterday. 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 - Suggest oncology evaluation - Will continue to monitor patient clinical course Status: Acute (3) Mass of colon Status: Acute
[2017-09-19] MEDS: Levothyroxine 100 MCG TAB PO SCH (05:32)
--- NOTE | 2017-09-19 08:02 | CP.PCM.PN ---
<Melissa Sevilla - Last Filed: 09/19/17 08:31> Subjective - Date & Time of Evaluation Date of Evaluation: 09/19/17 Time of Evaluation: 07:00 - Subjective Subjective: GI Fellow PGY4 Progress Note Pt seen and evaluated at bedside, pt doing okay after colonoscopy no abdominal pain. No issues overnight, pt drank her golytley for surgery today. Pt reports some rectal bleeding. ROS: A 12pt ROS was negative except as above. Objective - Vital Signs/Intake and Output Vital Signs (last 24 hours): Temp Pulse Resp BP Pulse Ox 98.7 F 67 20 157/80 H 97 09/18/17 23:05 09/19/17 04:30 09/18/17 23:05 09/18/17 23:05 09/18/17 23:05 - Medications Medications: Current Medications Guaifenesin (Robitussin) 200 mg PO Q4H PRN PRN Reason: Cough and congestion Last Admin: 09/18/17 13:46 Dose: 200 mg Lactated Ringer's (Lactated Ringer's 500ml) 500 mls @ 75 mls/hr IV .Q6H40M [facility] Last Admin: 09/18/17 02:00 Dose: Not Given Levothyroxine Sodium (Synthroid) 100 mcg PO DAILY@0630 [facility] Last Admin: 09/19/17 05:32 Dose: Not Given Losartan Potassium (Cozaar) 100 mg PO DAILY [facility] Last Admin: 09/18/17 10:10 Dose: 100 mg - Labs Labs: 09/18/17 11:21 09/18/17 11:21 PT 12.2 SECONDS (9.7-12.2) 09/17/17 06:48 INR 1.1 09/17/17 06:48 APTT 32 SECONDS (21-34) 09/16/17 12:34 - Constitutional Appears: Non-toxic, No Acute Distress, Cachectic - Head Exam Head Exam: ATRAUMATIC, NORMAL INSPECTION, NORMOCEPHALIC - Eye Exam Eye Exam: EOMI, Normal appearance, PERRL Pupil Exam: NORMAL ACCOMODATION - ENT Exam ENT Exam: Mucous Membranes Moist, Normal Exam - Neck Exam Neck Exam: Full ROM, Normal Inspection - Respiratory Exam Respiratory Exam: Clear to Ausculation Bilateral, NORMAL BREATHING PATTERN - Cardiovascular Exam Cardiovascular Exam: REGULAR RHYTHM - GI/Abdominal Exam GI & Abdominal Exam: Soft, Normal Bowel Sounds. absent: Distended, Tenderness - Rectal Exam Rectal Exam: Deferred - Extremities Exam Extremities Exam: Full ROM, Normal Inspection - Back Exam Back Exam: NORMAL INSPECTION - Neurological Exam Neurological Exam: Alert, Awake, Oriented x3 - Psychiatric Exam Psychiatric exam: Normal Affect, Normal Mood - Skin Skin Exam: Dry, Intact, Normal Color, Warm Assessment and Plan - Assessment and Plan (Free Text) Assessment: This is a 82yF presenting with complaints of rectal bleeding, abdominal pain and weight loss. 1. Rectal mass, invasive adenocarcinoma 2. Unintentional weightloss 3. Abdominal pain, rectal bleeding 4. H.pylori 5. CT imaging with gastric mass Plan: -Continue supportive care with IVF hydration and monitor labs -Hgb stable at this time, monitor H/H and transfuse as needed -Pt is s/p EGD/colonoscopy given unintentional weight loss, abdominal pain, and rectal bleeding in elderly patient, EGD negative for any malignancy, colonoscopy with 5cm recto-sigmoid mass-bx invasive adenocarcinoma -CT imaging with gastric mass not visualized on EGD, may need EUS at a later time -Appreciate surgical consultation and plan for OR today -EGD positive for H.pylori, will hold treatment at this time due to plan for surgery at this time -NPO for surgery -Recommend Oncology consult -Will continue to follow closely <Christophe Larsen - Last Filed: 09/19/17 09:41> Objective - Vital Signs/Intake and Output Vital Signs (last 24 hours): Temp Pulse Resp BP Pulse Ox 98.1 F 69 20 135/72 99 09/19/17 08:04 09/19/17 08:04 09/19/17 08:04 09/19/17 08:04 09/19/17 08:04 - Medications Medications: Current Medications Guaifenesin (Robitussin) 200 mg PO Q4H PRN PRN Reason: Cough and congestion Last Admin: 09/18/17 13:46 Dose: 200 mg Lactated Ringer's (Lactated Ringer's 500ml) 500 mls @ 75 mls/hr IV .Q6H40M [facility] Last Admin: 09/18/17 02:00 Dose: Not Given Levothyroxine Sodium (Synthroid) 100 mcg PO DAILY@0630 [facility] Last Admin: 09/19/17 05:32 Dose: Not Given Losartan Potassium (Cozaar) 100 mg PO DAILY [facility] Last Admin: 09/18/17 10:10 Dose: 100 mg - Labs Labs: 09/18/17 11:21 09/18/17 11:21 PT 12.2 SECONDS (9.7-12.2) 09/17/17 06:48 INR 1.1 09/17/17 06:48 APTT 32 SECONDS (21-34) 09/16/17 12:34 Attending/Attestation - Attestation I have personally seen and examined this patient.: Yes I have fully participated in the care of the patient.: Yes I have reviewed all pertinent clinical information, including history, physical exam and plan: Yes Notes (Text): 09/19/17 09:40 82 year old female with newly diagnosed rectal cancer. 1. Rectal cancer 2. Helicobacter pylori gastritis Plan: -plan is for surgery today -npo, s/p bowel prep -will await findings -appreciate oncology consult -treatment for h pylori can begin after surgery/recovery
[2017-09-19 11:27] LABS: HEMATOCRIT 27.1 % (34.0-47.0); MEAN CELL VOLUME 90.5 fL (81.0-99.0); MEAN CORPUSCULAR HEMOGLOBIN 29.5 pg (27.0-31.0); MEAN CORPUSCULAR HGB CONC 32.6 g/dL (33.0-37.0); MEAN PLATELET VOLUME 6.9 fL (7.2-11.7); RED CELL DISTRIBUTION WIDTH 16.5 % (11.5-14.5); WHITE BLOOD COUNT 7.6 K/uL (4.8-10.8)
[2017-09-19] MEDS ORDERED: Propofol 10 mg/ml Inj (20 ML) ONE (11:49)
[2017-09-19 11:50] LABS: ALB/GLOB RATIO 0.9 (1.0-2.1); ALKALINE PHOSPHATASE 54 U/L (38-126); ALT/SGPT 33 U/L (9-52); AST/SGOT 32 U/L (14-36); BILIRUBIN,TOTAL 0.4 mg/dL (0.2-1.3); BLOOD UREA NITROGEN 10 mg/dL (7-17); CALCIUM 7.4 mg/dl (8.6-10.4); CARBON DIOXIDE 33 mmol/L (22-30); CHLORIDE 102 mmol/L (98-107); GFR AFRICAN-AMERICAN > 60; GLUCOSE,RANDOM 79 mg/dL (65-105); POTASSIUM 3.8 mmol/L (3.6-5.2); SODIUM 137 mmol/L (132-148)
[2017-09-19] MEDS ORDERED: ceFAZolin IV 1 gm in Dextrose 1 GM/50 ML BAG IVPB ONE (12:03)
[2017-09-19] MEDS ORDERED: metroNIDAZOLE IV 500 mg/100 ml 500 MG/100 ML BAG ONE (12:03)
[2017-09-19] MEDS ORDERED: Bupivacaine HCl 0.5% PF (10 ml) Inj ONE ×2 (13:11)
--- NOTE | 2017-09-19 13:56 | CP.PCM.CON ---
Past Patient History - Past Medical History & Family History Past Medical History?: Yes - Past Social History Smoking Status: Former Smoker - CARDIAC Hx Hypertension: Yes - PULMONARY Hx Respiratory Disorders: No - NEUROLOGICAL Hx Neurological Disorder: No - HEENT Hx HEENT Problems: No - RENAL Hx Chronic Kidney Disease: No - ENDOCRINE/METABOLIC Hx Hypothyroidism: Yes - HEMATOLOGICAL/ONCOLOGICAL Hx Blood Disorders: No - INTEGUMENTARY Hx Dermatological Problems: No - MUSCULOSKELETAL/RHEUMATOLOGICAL Hx Falls: Yes Hx Fractures: Yes (RIGHT FOOT-NO SURGERY) - GASTROINTESTINAL Hx Gastrointestinal Disorders: No - GENITOURINARY/GYNECOLOGICAL Hx Genitourinary Disorders: No - PSYCHIATRIC Hx Psychophysiologic Disorder: No Hx Substance Use: No - SURGICAL HISTORY Hx Surgeries: Yes Other/Comment: HX: SOME TYPE OF THYROID SURGERY- PT. NOT SURE IF TOTAL. - ANESTHESIA Hx Anesthesia: Yes Hx Anesthesia Reactions: No Hx Malignant Hyperthermia: No Has any member of the family had a problem w/ anesthesia?: No Meds Allergies/Adverse Reactions: Allergies Allergy/AdvReac Type Severity Reaction Status Date / Time No Known Allergies Allergy Verified 09/16/17 12:02 - Medications Medications: Current Medications Guaifenesin (Robitussin) 200 mg PO Q4H PRN PRN Reason: Cough and congestion Last Admin: 09/18/17 13:46 Dose: 200 mg Lactated Ringer's (Lactated Ringer's 500ml) 500 mls @ 75 mls/hr IV .Q6H40M [facility] Last Admin: 09/18/17 02:00 Dose: Not Given Levothyroxine Sodium (Synthroid) 100 mcg PO DAILY@0630 [facility] Last Admin: 09/19/17 05:32 Dose: Not Given Losartan Potassium (Cozaar) 100 mg PO DAILY [facility] Last Admin: 09/18/17 10:10 Dose: 100 mg Results - Vital Signs Recent Vital Signs: Last Vital Signs Temp 98.1 F 09/19/17 08:04 Pulse 69 09/19/17 08:04 Resp 20 09/19/17 08:04 BP 135/72 09/19/17 08:04 Pulse Ox 99 09/19/17 08:04 - Labs Result Diagrams: 09/19/17 11:22 09/19/17 11:22 Labs: Laboratory Results - last 24 hr 09/17/17 09/19/17 09/19/17 17:26 11:22 11:22 WBC 7.6 RBC 3.00 L Hgb 8.8 L Hct 27.1 L MCV 90.5 MCH 29.5 MCHC 32.6 L RDW 16.5 H Plt Count 290 MPV 6.9 L Sodium 137 Potassium 3.8 Chloride 102 Carbon Dioxide 33 H Anion Gap 6 L BUN 10 Creatinine 1.0 Est GFR ( Amer) > 60 Est GFR (Non-Af Amer) 53 Random Glucose 79 Calcium 7.4 L Total Bilirubin 0.4 AST 32 ALT 33 Alkaline Phosphatase 54 Total Protein 6.0 L Albumin 2.8 L Globulin 3.2 Albumin/Globulin Ratio 0.9 L Blood Type O POSITIVE Antibody Screen Negative Assessment & Plan - Assessment and Plan (Free Text) Assessment: imp: colon carcinoma - Date & Time Date: 09/19/17 Time: 12:05
[2017-09-19] MEDS ORDERED: BUPIVACAINE 0.125%/0.9% NACL 600 ML IJ PRN (13:57)
--- NOTE | 2017-09-19 13:58 | PCM.SURG1 ---
Surgeon's Initial Post Op Note - Surgeon's Notes Surgeon: Michelle mckoy [employer] Officer: none Type of Anesthesia: General Endo Pre-Operative Diagnosis: Colon carcinoma Operative Findings: cystitis. pelvic mass Post-Operative Diagnosis: same Operation Performed: cystoscopy. insertion of bilat ureteral catheters Specimen/Specimens Removed: urine Estimated Blood Loss: EBL {In ML}: 0 Blood Products Given: N/A Post-Op Condition: Good Date of Surgery/Procedure: 09/19/17 Time of Surgery/Procedure: 13:00
[2017-09-19] MEDS ORDERED: Calcium Gluconate 4.65 mEq/10 ml Inj ONE (14:00)
[2017-09-19] MEDS ORDERED: Sodium Chloride 0.9% 1,000 ML IV ONE (14:04)
[2017-09-19] MEDS ORDERED: Rocuronium 10 mg/ml (5 ml) ONE (15:05)
[2017-09-19] MEDS ORDERED: Neostigmine Methylsulfate 3mg/3ml Syringe IV ONE (15:05)
[2017-09-19] MEDS ORDERED: Succinylcholine Chloride 20 mg/ml Syr (5 ml) IV ONE (15:05)
[2017-09-19] MEDS ORDERED: Lactated Ringer's 1,000 ML IV ONE (15:40)
--- NOTE | 2017-09-19 15:43 | PCM.SURG1 ---
Surgeon's Initial Post Op Note - Surgeon's Notes Surgeon: Dr Miner Mediator: Dr Grimaldo PGY3, Dr Tapia PGY1 Type of Anesthesia: General Endo Pre-Operative Diagnosis: colon mass Operative Findings: large near obstructing recto-sigmoid mass. EEA (29) anastamosis - no sign of leak during intraoperative testing. Ureters w/ stents identified intra-op. No gastric mass appreciable Post-Operative Diagnosis: recto-sigmoid mass Operation Performed: Ureteral stent placement. Low anterior resection w/ EEA anastamosis Specimen/Specimens Removed: sigmoid colon Estimated Blood Loss: EBL {In ML}: 100 Blood Products Given: PRBC (2 units) Drains Used: Carlos Post-Op Condition: Good Date of Surgery/Procedure: 09/19/17 Time of Surgery/Procedure: 15:43
[2017-09-19] MEDS: HYDROmorphone 0.5 mg/0.5 ml ISec IVP PRN ×2 (16:00→16:25)
[2017-09-19 16:41] LABS: HEMATOCRIT 32.3 % (34.0-47.0)
[2017-09-19 16:49] LABS: MEAN CELL VOLUME 90.1 fL (81.0-99.0); MEAN CORPUSCULAR HEMOGLOBIN 30.6 pg (27.0-31.0); MEAN CORPUSCULAR HGB CONC 33.9 g/dL (33.0-37.0); RED CELL DISTRIBUTION WIDTH 16.1 % (11.5-14.5)
[2017-09-19 16:53] LABS: WHITE BLOOD COUNT 12.6 K/uL (4.8-10.8)
[2017-09-19 16:55] LABS: BLOOD UREA NITROGEN 10 mg/dL (7-17); CALCIUM 7.2 mg/dl (8.6-10.4); CARBON DIOXIDE 27 mmol/L (22-30); CHLORIDE 104 mmol/L (98-107); GFR AFRICAN-AMERICAN > 60; GLUCOSE,RANDOM 111 mg/dL (65-105); POTASSIUM 3.5 mmol/L (3.6-5.2); SODIUM 136 mmol/L (132-148)
--- NOTE | 2017-09-19 19:42 | CP.PCM.CON ---
History of Present Illness - History of Present Illness History of Present Illness: PGY1 ICU Consult Note for Dr. Manasa Valle Reason for consult: s/p sigmoid colectomy, close monitoring post op Patient is an 82 year old female with a known case of colon cancer with history of hypothyroidism, HTN who is s/p low anterior resection of sigmoid colon w/ EEA anastamosis POD 0. Patient is being transferred to the ICU post op for close monitoring. Patient is awake, alert but drowsy from the anesthesia. She states she is feeling well and only has some soreness in her abdomen but no pain. Patient has no complaints at this time. PMH: As stated in HPI PSH: Low anterior resection of sigmoid colon w/ EEA anastamosis Social: Denies alcohol, former smoker, denies drugs Family: Denies family hx of colon cancer Review of Systems - Review of Systems All systems: reviewed and no additional remarkable complaints except (as per HPI ) Past Patient History - Past Medical History & Family History Past Medical History?: Yes - Past Social History Smoking Status: Former Smoker - CARDIAC Hx Hypertension: Yes - PULMONARY Hx Respiratory Disorders: No - NEUROLOGICAL Hx Neurological Disorder: No - HEENT Hx HEENT Problems: No - RENAL Hx Chronic Kidney Disease: No - ENDOCRINE/METABOLIC Hx Hypothyroidism: Yes - HEMATOLOGICAL/ONCOLOGICAL Hx Blood Disorders: No - INTEGUMENTARY Hx Dermatological Problems: No - MUSCULOSKELETAL/RHEUMATOLOGICAL Hx Falls: Yes Hx Fractures: Yes (RIGHT FOOT-NO SURGERY) - GASTROINTESTINAL Hx Gastrointestinal Disorders: No - GENITOURINARY/GYNECOLOGICAL Hx Genitourinary Disorders: No - PSYCHIATRIC Hx Psychophysiologic Disorder: No Hx Substance Use: No - SURGICAL HISTORY Hx Surgeries: Yes Other/Comment: HX: SOME TYPE OF THYROID SURGERY- PT. NOT SURE IF TOTAL. - ANESTHESIA Hx Anesthesia: Yes Hx Anesthesia Reactions: No Hx Malignant Hyperthermia: No Has any member of the family had a problem w/ anesthesia?: No Meds Allergies/Adverse Reactions: Allergies Allergy/AdvReac Type Severity Reaction Status Date / Time No Known Allergies Allergy Verified 09/16/17 12:02 - Medications Medications: Current Medications Guaifenesin (Robitussin) 200 mg PO Q4H PRN PRN Reason: Cough and congestion Last Admin: 09/18/17 13:46 Dose: 200 mg Hydromorphone HCl (Dilaudid) 0.5 mg IVP Q3H PRN PRN Reason: Pain, Mild (1-3) Lactated Ringer's (Lactated Ringer's 500ml) 500 mls @ 75 mls/hr IV .Q6H40M [facility] Last Admin: 09/18/17 02:00 Dose: Not Given BUPIVACAINE 0.125%/0.9% NACL (Bupivacaine-Ns 0.125% On-Q Buttoner) 600 mls @ 4 mls/ hr IJ Q150H PRN Last Admin: 09/19/17 15:55 Dose: 0 mls Cefazolin Sodium 1 gm/ Sodium (Chloride) 100 mls @ 100 mls/hr IVPB Q8H [facility] Metronidazole (Flagyl) 500 mg in 100 mls @ 100 mls/hr IVPB Q8 [facility] Stop: 09/20/17 14:59 Levothyroxine Sodium (Synthroid) 100 mcg PO DAILY@0630 [facility] Last Admin: 09/19/17 05:32 Dose: Not Given Losartan Potassium (Cozaar) 100 mg PO DAILY [facility] Last Admin: 09/19/17 10:00 Dose: Not Given Pantoprazole Sodium (Protonix Inj) 40 mg IVP DAILY [facility] Physical Exam - Constitutional Appears: Well, No Acute Distress - Head Exam Head Exam: ATRAUMATIC, NORMOCEPHALIC - Eye Exam Eye Exam: EOMI, Normal appearance - ENT Exam ENT Exam: Mucous Membranes Moist - Neck Exam Neck exam: Positive for: Full Rom - Respiratory Exam Respiratory Exam: Clear to Auscultation Bilateral, NORMAL BREATHING PATTERN. absent: Accessory Muscle Use, Respiratory Distress - Cardiovascular Exam Cardiovascular Exam: REGULAR RHYTHM, +S1, +S2 - GI/Abdominal Exam GI & Abdominal Exam: Tenderness Additional comments: Surgical dressing in place, c/d/i - Extremities Exam Extremities exam: Positive for: pedal pulses present. Negative for: calf tenderness, pedal edema Additional comments: scd in place - Skin Skin Exam: Dry, Warm Results - Vital Signs Recent Vital Signs: Last Vital Signs Temp 97.2 F L 09/19/17 17:30 Pulse 67 09/19/17 17:30 Resp 8 L 09/19/17 17:30 BP 136/54 L 09/19/17 17:30 Pulse Ox 100 09/19/17 17:30 - Labs Result Diagrams: 09/19/17 16:36 09/19/17 16:36 Labs: Laboratory Results - last 24 hr 09/17/17 09/19/17 09/19/17 17:26 11:22 11:22 WBC 7.6 RBC 3.00 L Hgb 8.8 L Hct 27.1 L MCV 90.5 MCH 29.5 MCHC 32.6 L RDW 16.5 H Plt Count 290 MPV 6.9 L Sodium 137 Potassium 3.8 Chloride 102 Carbon Dioxide 33 H Anion Gap 6 L BUN 10 Creatinine 1.0 Est GFR ( Amer) > 60 Est GFR (Non-Af Amer) 53 Random Glucose 79 Calcium 7.4 L Total Bilirubin 0.4 AST 32 ALT 33 Alkaline Phosphatase 54 Total Protein 6.0 L Albumin 2.8 L Globulin 3.2 Albumin/Globulin Ratio 0.9 L Blood Type O POSITIVE Antibody Screen Negative 09/19/17 09/19/17 16:36 16:36 WBC 12.6 H D RBC 3.58 L Hgb 11.0 D Hct 32.3 L MCV 90.1 MCH 30.6 MCHC 33.9 RDW 16.1 H Plt Count 256 MPV 7.0 L Sodium 136 Potassium 3.5 L Chloride 104 Carbon Dioxide 27 Anion Gap 8 L BUN 10 Creatinine 1.0 Est GFR ( Amer) > 60 Est GFR (Non-Af Amer) 53 Random Glucose 111 H Calcium 7.2 L Total Bilirubin AST ALT Alkaline Phosphatase Total Protein Albumin Globulin Albumin/Globulin Ratio Blood Type Antibody Screen Assessment & Plan - Assessment and Plan (Free Text) Assessment: Patient is an 82 year old female with a known case of colon cancer with history of hypothyroidism, HTN who is s/p low anterior resection of sigmoid colon w/ EEA anastamosis POD 0. Plan: GI: Gen Surg. consult, Dr. Miner GI consult, Dr. Sommer Colon CA s/p low anterior resection of sigmoid colon w/ EEA anastamosis POD 0 LR @ 75ml/hr Dilaudid 0.5mg IVP q3h prn metronidazole 500mg IVPB q8h x 3 doses Cefazolin 1gm IVPB q8h On-Q pump CV: HTN Losartan 100mg PO daily Endo: Hypothyroid synthroid 100 mcg PO daily Prophylactic Care: SCDs Case discussed with Dr. Manasa Celis Marylou PGY1
[2017-09-19] MEDS: ceFAZolin 1 GM in Sodium Chloride 0.9% 100 ML IVPB SCH (20:00)
[2017-09-19] MEDS: metroNIDAZOLE IV 500 mg/100 ml 500 MG/100 ML BAG IVPB SCH (21:00)
[2017-09-19] MEDS ORDERED: (Novolin R) Insulin Human Regular 100 units/ml vial SC SCH (22:15)
--- NOTE | 2017-09-19 22:21 | CP.PCM.PN ---
Subjective - Date & Time of Evaluation Date of Evaluation: 09/19/17 Time of Evaluation: 18:25 - Subjective Subjective: Pt seen and examined in PACU, abdomen post op, colon mass s/p OR resection, is on post op care, feeling better. waking up c/o pain Objective - Vital Signs/Intake and Output Vital Signs (last 24 hours): Temp Pulse Resp BP Pulse Ox 97.2 F L 72 18 140/59 L 100 09/19/17 18:00 09/19/17 18:00 09/19/17 19:00 09/19/17 19:00 09/19/17 19:00 Intake and Output: 09/19/17 09/20/17 18:59 06:59 Intake Total 2400 100 Output Total 270 30 Balance 2130 70 - Medications Medications: Current Medications Guaifenesin (Robitussin) 200 mg PO Q4H PRN PRN Reason: Cough and congestion Last Admin: 09/18/17 13:46 Dose: 200 mg Hydromorphone HCl (Dilaudid) 0.5 mg IVP Q3H PRN PRN Reason: Pain, Mild (1-3) Lactated Ringer's (Lactated Ringer's 500ml) 500 mls @ 75 mls/hr IV .Q6H40M [facility] Last Admin: 09/18/17 02:00 Dose: Not Given BUPIVACAINE 0.125%/0.9% NACL (Bupivacaine-Ns 0.125% On-Q Hand Launderer) 600 mls @ 4 mls/ hr IJ Q150H PRN Last Admin: 09/19/17 15:55 Dose: 0 mls Cefazolin Sodium 1 gm/ Sodium (Chloride) 100 mls @ 100 mls/hr IVPB Q8H [facility] Last Admin: 09/19/17 20:00 Dose: 100 mls/hr Metronidazole (Flagyl) 500 mg in 100 mls @ 100 mls/hr IVPB Q8 [facility] Stop: 09/20/17 14:59 Potassium Chloride (Potassium Chloride 20 Meq/100 Ml) 20 meq in 100 mls @ 50 mls/hr IVPB ONCE ONE Stop: 09/20/17 00:04 Insulin Human Regular (Novolin R) 0 unit SC Q6H [facility] PRN Reason: Protocol Levothyroxine Sodium (Synthroid) 100 mcg PO DAILY@0630 [facility] Last Admin: 09/19/17 05:32 Dose: Not Given Losartan Potassium (Cozaar) 100 mg PO DAILY [facility] Last Admin: 09/19/17 10:00 Dose: Not Given Pantoprazole Sodium (Protonix Inj) 40 mg IVP DAILY [facility] - Labs Labs: 09/19/17 16:36 09/19/17 16:36 PT 12.2 SECONDS (9.7-12.2) 09/17/17 06:48 INR 1.1 09/17/17 06:48 APTT 32 SECONDS (21-34) 09/16/17 12:34 - Constitutional Appears: No Acute Distress - Head Exam Head Exam: ATRAUMATIC, NORMAL INSPECTION, NORMOCEPHALIC - Eye Exam Eye Exam: EOMI, Normal appearance, PERRL Pupil Exam: NORMAL ACCOMODATION, PERRL - Respiratory Exam Respiratory Exam: Clear to Ausculation Bilateral, NORMAL BREATHING PATTERN - Cardiovascular Exam Cardiovascular Exam: REGULAR RHYTHM, +S1, +S2. absent: Murmur - GI/Abdominal Exam GI & Abdominal Exam: Soft, Normal Bowel Sounds. absent: Tenderness Assessment and Plan (1) Abdominal pain Assessment & Plan: s/p OR post op care continue ICU Status: Acute (2) Gastrointestinal hemorrhage Status: Acute (3) Mass of colon Status: Acute
[2017-09-20] MEDS: (Novolin R) Insulin Human Regular 100 units/ml vial SC SCH ×4 (00:06→18:27)
[2017-09-20] MEDS: Lactated Ringer's 500 ML IV SCH ×3 (02:11→20:00)
[2017-09-20] MEDS: ceFAZolin 1 GM in Sodium Chloride 0.9% 100 ML IVPB SCH ×2 (03:00→12:08)
--- NOTE | 2017-09-20 04:14 | OP ---
PROCEDURE DATE: 09/19/2017 PREOPERATIVE DIAGNOSIS: Sigmoid rectal cancer. PROCEDURE CARRIED OUT: Low anterior resection. SURGEON: Xavier Miner Jr., M.D. ASSISTANTS: Dr. Grimaldo, Dr. Tapia. ANESTHESIOLOGIST: Deja Reinoso CRNA INDICATIONS: The patient is an elderly woman admitted to the hospital with anemia, found to have a large obstructing tumor in the rectosigmoid. Prior to the operation, the different alternatives and the role of neoadjuvant therapy was discussed. In this particular case, because of the bleeding, because of the near obstructive nature of it,and because it appeared to be a rectosigmoid rather than a rectal cancer, we proceeded with surgical intervention. OPERATIVE FINDINGS: There was no evidence of liver metastasis, there were no palpable nodes in the mesentery, but this was a large bulky tumor extending from the pelvic brim extending down to the rectum and then up to above the peritoneal reflection. The rest of the intraoperative findings were unremarkable. There was a previous hysterectomy. There were some adhesions to the bladder. Dr. Chaudhry had placed and carried out cystoscopy and placement of ureteral catheters preoperatively. FINDINGS: A complete excision of this area was carried out down to the fascia. With the ureters being very visible and identified without evidence of any injury, the rest of the intraabdominal findings were unremarkable. In particular, a question was raised based on CAT scan examination of some mass in the fundus of stomach was considered and there were no palpable abnormalities detected in this region. The rest of the colon was palpated, and we were unable to detect any tumors or polyps in the rest of the colon. DESCRIPTION OF PROCEDURE: Patient was given general anesthesia and intravenous antibiotics. Venodyne boots were applied. Dr. Chaudhry had carried out his part of the procedure. We then carried out sigmoidoscopy confirming the location and presence of the tumor. We then explored the patient through a large midline incision. Identified the tumor, mobilized it appropriately, identified the ureters, divided the colon, removed the tumor, stapled it shut. There was some tear on the anterior surface of the specimen prior to its removal, but we had a clean margin. We then submitted this for examination. We did not submit the two donuts from the anastomosis for excision. Prior to carrying out the anastomosis used a stapled 29 EEA through the rectum. We insufflated the air and there was one small area on the left side, which was controlled with a suture which controlled any air leak. After this, we then went ahead and carried out the stapled anastomosis using an EEA device through the rectum. There was no air leak whatsoever after this was insufflated. We then placed a small drain, placed everything back in the pelvis, brought the omentum down over the abdomen and stored an ON-Q system for pain control and closed the abdomen with running sutures of Novafil and PDS. Skin clips were applied on the skin. Blood loss for the procedure was less than 300 mL. Operation carried out was low anterior resection. Xavier Miner Jr., MD cc: DO Christ Ramires MD
[2017-09-20] MEDS: metroNIDAZOLE IV 500 mg/100 ml 500 MG/100 ML BAG IVPB SCH ×2 (05:00→13:57)
[2017-09-20] MEDS: Levothyroxine 100 MCG TAB PO SCH (05:30)
[2017-09-20 06:16] LABS: BASO % 0.1 % (0.0-2.0); HEMATOCRIT 32.3 % (34.0-47.0); LYMPH # 0.5 K/uL (1.0-4.3); LYMPH % 2.6 % (20.0-40.0); MEAN CELL VOLUME 89.9 fL (81.0-99.0); MEAN CORPUSCULAR HEMOGLOBIN 30.4 pg (27.0-31.0); MEAN CORPUSCULAR HGB CONC 33.8 g/dL (33.0-37.0); MEAN PLATELET VOLUME 7.2 fL (7.2-11.7); MONO # 0.5 K/uL (0.0-0.8); MONO % 3.1 % (0.0-10.0); PLATELET COUNT 257 K/uL (130-400); RED CELL DISTRIBUTION WIDTH 16.2 % (11.5-14.5); WHITE BLOOD COUNT 17.9 K/uL (4.8-10.8)
[2017-09-20 06:32] LABS: ALB/GLOB RATIO 0.9 (1.0-2.1); BILIRUBIN,TOTAL 0.7 mg/dL (0.2-1.3); CALCIUM 7.5 mg/dl (8.6-10.4); MAGNESIUM 1.3 mg/dL (1.6-2.3); PHOSPHOROUS 4.8 mg/dL (2.5-4.5); POTASSIUM 4.2 mmol/L (3.6-5.2); TOTAL PROTEIN 5.8 g/dL (6.3-8.3)
[2017-09-20] MEDS: HYDROmorphone 0.5 mg/0.5 ml ISec IVP PRN (08:12)
[2017-09-20 08:41] LABS: NEUTROPHIL 90 % (50-75); TOTAL CELLS COUNTED 100
[2017-09-20] MEDS ORDERED: Magnesium Sulfate 1 gm in D5W 1 GM/100 ML BAG IVPB ONE (08:50)
--- NOTE | 2017-09-20 09:48 | CP.PCM.PN ---
<Lorraine Rosa - Last Filed: 09/20/17 09:45> Subjective - Date & Time of Evaluation Date of Evaluation: 09/20/17 Time of Evaluation: 07:20 - Subjective Subjective: Gastroenterology Fellow/PGY5 Progress Note Patient notes abdominal pain, pain scale 7/10. States she is thirsty. A 12- point review of systems negative except for as above. Objective - Vital Signs/Intake and Output Vital Signs (last 24 hours): Temp Pulse Resp BP Pulse Ox 98 F 100 H 13 124/63 96 09/20/17 08:00 09/20/17 08:22 09/20/17 08:17 09/20/17 08:18 09/20/17 08:22 Intake and Output: 09/20/17 09/20/17 06:59 18:59 Intake Total 1075 235 Output Total 430 155 Balance 645 80 - Medications Medications: Current Medications Guaifenesin (Robitussin) 200 mg PO Q4H PRN PRN Reason: Cough and congestion Last Admin: 09/18/17 13:46 Dose: 200 mg Hydromorphone HCl (Dilaudid) 0.5 mg IVP Q3H PRN PRN Reason: Pain, Mild (1-3) Last Admin: 09/20/17 08:12 Dose: 0.5 mg Lactated Ringer's (Lactated Ringer's 500ml) 500 mls @ 75 mls/hr IV .Q6H40M [facility] Last Admin: 09/20/17 02:11 Dose: 75 mls/hr BUPIVACAINE 0.125%/0.9% NACL (Bupivacaine-Ns 0.125% On-Q Inspector Subassemblies) 600 mls @ 4 mls/ hr IJ Q150H PRN Last Admin: 09/19/17 15:55 Dose: 0 mls Cefazolin Sodium 1 gm/ Sodium (Chloride) 100 mls @ 100 mls/hr IVPB Q8H [facility] Last Admin: 09/20/17 03:00 Dose: 100 mls/hr Metronidazole (Flagyl) 500 mg in 100 mls @ 100 mls/hr IVPB Q8 [facility] Stop: 09/20/17 14:59 Last Admin: 09/20/17 05:00 Dose: 100 mls/hr Insulin Human Regular (Novolin R) 0 unit SC Q6H [facility] PRN Reason: Protocol Last Admin: 09/20/17 05:29 Dose: Not Given Levothyroxine Sodium (Synthroid) 100 mcg PO DAILY@0630 [facility] Last Admin: 09/20/17 05:30 Dose: Not Given Losartan Potassium (Cozaar) 100 mg PO DAILY [facility] Last Admin: 09/19/17 10:00 Dose: Not Given Pantoprazole Sodium (Protonix Inj) 40 mg IVP DAILY [facility] Last Admin: 09/20/17 09:21 Dose: 40 mg - Labs Labs: 09/20/17 06:00 09/20/17 06:00 PT 12.2 SECONDS (9.7-12.2) 09/17/17 06:48 INR 1.1 09/17/17 06:48 APTT 32 SECONDS (21-34) 09/16/17 12:34 - Constitutional Appears: Non-toxic, No Acute Distress - Head Exam Head Exam: ATRAUMATIC, NORMOCEPHALIC - Eye Exam Eye Exam: EOMI, PERRL Pupil Exam: absent: Miosis, Mydriatic - ENT Exam ENT Exam: Mucous Membranes Moist, Normal Oropharynx - Neck Exam Neck Exam: Full ROM, Normal Inspection - Respiratory Exam Respiratory Exam: Clear to Ausculation Bilateral. absent: Rales, Rhonchi, Wheezes - Cardiovascular Exam Cardiovascular Exam: RRR, +S1, +S2. absent: Rubs - GI/Abdominal Exam GI & Abdominal Exam: Soft, Tenderness, Normal Bowel Sounds. absent: Distended, Firm, Guarding, Rigid, Organomegaly Additional comments: B/L LQ dressings in place, C/D?I, On-Q pump LLQ, RLQ NOEMÍ drain with 20cc of serosanguinous drainage - Extremities Exam Extremities Exam: Normal Inspection. absent: Pedal Edema - Neurological Exam Neurological Exam: Alert, Awake - Psychiatric Exam Psychiatric exam: Normal Affect, Normal Mood - Skin Skin Exam: Dry, Intact, Normal Color, Warm Assessment and Plan - Assessment and Plan (Free Text) Assessment: 82 year old female with history of Hypertension and Hypothyroidism presenting with rectal bleeding, abdominal pain and weight loss. 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 H pylori Gastritis with focal intestinal metaplasia confirmed on EGD 09/17/17. Plan: >surgery managing- follow up recommendations on diet post-surgical care >follow up surgical pathology >on Cefazolin/flagyl >supportive care: pain control >recommend Oncology consult >outpatient follow up for H pylori treatment >will require future colonoscopy for complete exam to rule out synchronous lesions and polyps >will follow clinical course <Christophe Larsen - Last Filed: 09/20/17 15:10> Objective - Vital Signs/Intake and Output Vital Signs (last 24 hours): Temp Pulse Resp BP Pulse Ox 98.2 F 75 20 131/71 99 09/20/17 12:00 09/20/17 14:20 09/20/17 14:20 09/20/17 13:51 09/20/17 14:20 Intake and Output: 09/20/17 09/20/17 06:59 18:59 Intake Total 1075 760 Output Total 430 345 Balance 645 415 - Medications Medications: Current Medications Guaifenesin (Robitussin) 200 mg PO Q4H PRN PRN Reason: Cough and congestion Last Admin: 09/18/17 13:46 Dose: 200 mg Hydromorphone HCl (Dilaudid) 0.5 mg IVP Q3H PRN PRN Reason: Pain, Mild (1-3) Last Admin: 09/20/17 08:12 Dose: 0.5 mg Lactated Ringer's (Lactated Ringer's 500ml) 500 mls @ 75 mls/hr IV .Q6H40M [facility] Last Admin: 09/20/17 13:57 Dose: Not Given BUPIVACAINE 0.125%/0.9% NACL (Bupivacaine-Ns 0.125% On-Q Inspector Subassemblies) 600 mls @ 4 mls/ hr IJ Q150H PRN Last Admin: 09/19/17 15:55 Dose: 0 mls Cefazolin Sodium 1 gm/ Sodium (Chloride) 100 mls @ 100 mls/hr IVPB Q8H [facility] Last Admin: 09/20/17 12:08 Dose: 100 mls/hr Insulin Human Regular (Novolin R) 0 unit SC Q6H [facility] PRN Reason: Protocol Last Admin: 09/20/17 12:11 Dose: Not Given Levothyroxine Sodium (Synthroid) 100 mcg PO DAILY@0630 [facility] Last Admin: 09/20/17 05:30 Dose: Not Given Losartan Potassium (Cozaar) 100 mg PO DAILY [facility] Last Admin: 09/19/17 10:00 Dose: Not Given Pantoprazole Sodium (Protonix Inj) 40 mg IVP DAILY [facility] Last Admin: 09/20/17 09:21 Dose: 40 mg - Labs Labs: 09/20/17 06:00 09/20/17 06:00 PT 12.2 SECONDS (9.7-12.2) 09/17/17 06:48 INR 1.1 09/17/17 06:48 APTT 32 SECONDS (21-34) 09/16/17 12:34 Attending/Attestation - Attestation I have personally seen and examined this patient.: Yes I have fully participated in the care of the patient.: Yes I have reviewed all pertinent clinical information, including history, physical exam and plan: Yes Notes (Text): 09/20/17 15:10 82 year old female with newly diagnosed rectal cancer. 1. Rectal cancer 2. Helicobacter pylori gastritis Plan: -s/p LAR yesterday - doing well - post op care per surgery -await final path - appreciate oncology eval -treatment for h pylori can begin after surgery/recovery
--- NOTE | 2017-09-20 10:20 | CP.PCM.PN ---
Subjective - Date & Time of Evaluation Date of Evaluation: 09/20/17 Time of Evaluation: 08:20 - Subjective Subjective: Surgery Progress note. Dr. Miner. Pt seen and examined at bedside. No acute events overnight. States that the pain is well tolerated. Denies any F/C. No BM, no Flatus. No new complaints. Objective - Vital Signs/Intake and Output Vital Signs (last 24 hours): Temp Pulse Resp BP Pulse Ox 98 F 100 H 13 124/63 96 09/20/17 08:00 09/20/17 08:22 09/20/17 08:17 09/20/17 08:18 09/20/17 08:22 Intake and Output: 09/20/17 09/20/17 06:59 18:59 Intake Total 1075 235 Output Total 430 155 Balance 645 80 - Medications Medications: Current Medications Guaifenesin (Robitussin) 200 mg PO Q4H PRN PRN Reason: Cough and congestion Last Admin: 09/18/17 13:46 Dose: 200 mg Hydromorphone HCl (Dilaudid) 0.5 mg IVP Q3H PRN PRN Reason: Pain, Mild (1-3) Last Admin: 09/20/17 08:12 Dose: 0.5 mg Lactated Ringer's (Lactated Ringer's 500ml) 500 mls @ 75 mls/hr IV .Q6H40M [facility] Last Admin: 09/20/17 02:11 Dose: 75 mls/hr BUPIVACAINE 0.125%/0.9% NACL (Bupivacaine-Ns 0.125% On-Q Crystal Calibrator) 600 mls @ 4 mls/ hr IJ Q150H PRN Last Admin: 09/19/17 15:55 Dose: 0 mls Cefazolin Sodium 1 gm/ Sodium (Chloride) 100 mls @ 100 mls/hr IVPB Q8H [facility] Last Admin: 09/20/17 03:00 Dose: 100 mls/hr Metronidazole (Flagyl) 500 mg in 100 mls @ 100 mls/hr IVPB Q8 [facility] Stop: 09/20/17 14:59 Last Admin: 09/20/17 05:00 Dose: 100 mls/hr Insulin Human Regular (Novolin R) 0 unit SC Q6H [facility] PRN Reason: Protocol Last Admin: 12/16/17 05:29 Dose: Not Given Levothyroxine Sodium (Synthroid) 100 mcg PO DAILY@0630 [facility] Last Admin: 09/20/17 05:30 Dose: Not Given Losartan Potassium (Cozaar) 100 mg PO DAILY [facility] Last Admin: 09/19/17 10:00 Dose: Not Given Pantoprazole Sodium (Protonix Inj) 40 mg IVP DAILY [facility] Last Admin: 09/20/17 09:21 Dose: 40 mg - Labs Labs: 09/20/17 06:00 09/20/17 06:00 PT 12.2 SECONDS (9.7-12.2) 09/17/17 06:48 INR 1.1 09/17/17 06:48 APTT 32 SECONDS (21-34) 09/16/17 12:34 - Constitutional Appears: Non-toxic, No Acute Distress - Head Exam Head Exam: ATRAUMATIC, NORMAL INSPECTION, NORMOCEPHALIC - Eye Exam Eye Exam: EOMI - ENT Exam ENT Exam: Mucous Membranes Moist - Respiratory Exam Respiratory Exam: NORMAL BREATHING PATTERN. absent: Accessory Muscle Use, Respiratory Distress - Cardiovascular Exam Cardiovascular Exam: absent: JVD - GI/Abdominal Exam Additional comments: soft. Tenderness to palpation periincisional. Non distended. no guarding. Carlos drain with 40cc serosang output. On Q catheters in place, running at 6cc/hr. Midline incision dressing in place, clean, dry and intact. - Extremities Exam Extremities Exam: Normal Inspection. absent: Calf Tenderness - Neurological Exam Neurological Exam: Alert, Awake, Oriented x3 - Psychiatric Exam Psychiatric exam: Normal Affect, Normal Mood - Skin Skin Exam: Dry, Intact, Normal Color, Warm Assessment and Plan - Assessment and Plan (Free Text) Assessment: 82yo F with bleeding recto-sigmoid mass s/p Low Anterior Resection w/ EEA on . POD1 - NPO for now. May have sips/ice chips - Continue with mason - continue with pain management - Recommend Heme/Oncology work-up - f/u path - Recommend PT eval and treat - Encourage OOBTC, Ambulation. IS use - Awaiting bowel fxn Further Recs as per Dr. Isidra Tapia PGY1 surgery pager: [phone]
[2017-09-20 10:29] LABS: RBC URINE 12012 /hpf (0-3); URINE BACTERIA OCC (<OCC); URINE BILIRUBIN NEGATIVE (NEGATIVE); URINE BLOOD 2+ (NEGATIVE); URINE COLOR Red (YELLOW); URINE GLUCOSE (UA) 1+ mg/dL (Normal); URINE KETONE TRACE mg/dL (NEGATIVE); URINE LEUKOCYTE ESTERASE TRACE Leu/uL (Negative); URINE PROTEIN 2+ mg/dL (NEGATIVE); URINE UROBILINOGEN NORMAL mg/dL (0.2-1.0); WBC URINE 11 /hpf (0-5)
--- NOTE | 2017-09-20 21:58 | CP.CCUPN ---
CCU Subjective - Physician Review Subjective (Free Text): 09/20/17 21:54 Patient awake, alert in NAD sitting in chair, no flatus, no BM today CCU Objective - Vital Signs / Intake & Output Vital Signs (Last 4 hours): Vital Signs Temp Pulse Resp Pulse Ox 09/20/17 20:00 99.3 F 09/20/17 19:20 76 15 99 09/20/17 19:10 73 16 95 09/20/17 19:00 79 14 98 09/20/17 18:50 77 13 98 09/20/17 18:40 84 16 98 09/20/17 18:30 79 13 99 09/20/17 18:20 84 16 98 09/20/17 18:10 77 15 99 09/20/17 18:00 78 15 100 Intake and Output (Last 8hrs): Intake & Output 09/20/17 09/20/17 09/20/17 06:59 14:59 22:59 Intake Total 650 760 450 Output Total 400 345 115 Balance 250 415 335 Weight 134 lb 5 oz Intake: Intake, IV Amount 650 760 450 Left Hand 650 750 450 Right Wrist 10 Oral 0 0 0 Output: Drainage 45 15 Right Abdomen 45 15 Urine 400 300 100 Urethral (Contreras) 250 100 Urine, Voided 400 50 - Physical Exam Physical Exam Limitations: Negative for: Altered Mental Status Head: Positive for: Atraumatic, Normocephalic Cardiovascular: Positive for: Regular Rate and Rhythm, Normal S1, S2 Abdomen: Positive for: Tenderness. Negative for: Peritoneal Signs, Guarding Lower Extremity: Positive for: Normal Inspection Psychiatric: Positive for: Alert, Oriented x 3 - Medications Active Medications: Active Medications Generic Name Dose Route Start Last Admin Trade Name Freq PRN Reason Stop Dose Admin Guaifenesin 200 mg 09/18/17 12:32 09/18/17 13:46 Robitussin PO 200 mg Q4H PRN Administration Cough and congestion Heparin Sodium (Porcine) 5,000 units 09/20/17 22:00 Heparin SC Q8 [facility] Hydromorphone HCl 0.5 mg 09/19/17 15:47 09/20/17 08:12 Dilaudid IVP 0.5 mg Q3H PRN Administration Pain, Mild (1-3) Lactated Ringer's 500 mls @ 75 mls/hr 09/17/17 11:45 09/20/17 13:57 Lactated Ringer's 500ml IV Not Given .Q6H40M [facility] BUPIVACAINE 0.125%/0.9% NACL 600 mls @ 4 mls/hr 09/19/17 13:57 09/19/17 15:55 Bupivacaine-Ns 0.125% On-Q Automation Technician IJ 0 mls Q150H PRN Administration Cefazolin Sodium 1 gm/ 50 mls @ 100 mls/hr 09/21/17 04:00 Dextrose IVPB Q8H [facility] Insulin Human Regular 0 unit 09/20/17 00:00 09/20/17 18:27 Novolin R SC Not Given Q6H [facility] Protocol Levothyroxine Sodium 100 mcg 09/18/17 06:30 09/20/17 05:30 Synthroid PO Not Given DAILY@0630 [facility] Losartan Potassium 100 mg 09/18/17 10:00 09/19/17 10:00 Cozaar PO Not Given DAILY [facility] Pantoprazole Sodium 40 mg 09/20/17 10:00 09/20/17 09:21 Protonix Inj IVP 40 mg DAILY [facility] Administration - Patient Studies Lab Studies: Microbiology Studies 09/19/17 21:43 MRSA Culture (Admit) - Final Naris MRSA NOT DETECTED Lab Studies 09/20/17 09/20/17 09/20/17 Range/Units 18:22 12:09 09:55 WBC (4.8-10.8) K/uL RBC (3.80-5.20) Mil/uL Hgb (11.0-16.0) g/dL Hct (34.0-47.0) % MCV (81.0-99.0) fL MCH (27.0-31.0) pg MCHC (33.0-37.0) g/dL RDW (11.5-14.5) % Plt Count (130-400) K/uL MPV (7.2-11.7) fL Neut % (Auto) (50.0-75.0) % Lymph % (Auto) (20.0-40.0) % [place] % (Auto) (0.0-10.0) % Eos % (Auto) (0.0-4.0) % Baso % (Auto) (0.0-2.0) % Neut # (1.8-7.0) K/uL Lymph # (1.0-4.3) K/uL [place] # (0.0-0.8) K/uL Eos # (0.0-0.7) K/uL Baso # (0.0-0.2) K/uL Neutrophils % (Manual) (50-75) % Band Neutrophils % (0-2) % Lymphocytes % (Manual) (20-40) % Monocytes % (Manual) (0-10) % Platelet Estimate (NORMAL) Poikilocytosis (manual Anisocytosis (manual) Sodium (132-148) mmol/L Potassium (3.6-5.2) mmol/L Chloride (98-107) mmol/L Carbon Dioxide (22-30) mmol/L Anion Gap (10-20) BUN (7-17) mg/dL Creatinine (0.7-1.2) mg/dL Est GFR ( Amer) Est GFR (Non-Af Amer) POC Glucose (mg/dL) 115 H 156 H (65-110) mg/dL Random Glucose (65-105) mg/dL Calcium (8.6-10.4) mg/dl Phosphorus (2.5-4.5) mg/dL Magnesium (1.6-2.3) mg/dL Total Bilirubin (0.2-1.3) mg/dL AST (14-36) U/L ALT (9-52) U/L Alkaline Phosphatase (38-126) U/L Total Protein (6.3-8.3) g/dL Albumin (3.5-5.0) g/dL Globulin (2.2-3.9) gm/dL Albumin/Globulin Ratio (1.0-2.1) Urine Color Red (YELLOW) Urine Clarity Hazy (Clear) Urine pH 6.0 (5.0-8.0) Ur Specific [place] 1.015 (1.003-1.030) Urine Protein 2+ H (NEGATIVE) mg/dL Urine Glucose (UA) 1+ (Normal) mg/dL Urine Ketones Trace (NEGATIVE) mg/dL Urine Blood 2+ H (NEGATIVE) Urine Nitrate Negative (NEGATIVE) Urine Bilirubin Negative (NEGATIVE) Urine Urobilinogen Normal (0.2-1.0) mg/dL Ur Leukocyte Esterase Trace (Negative) Eduardo/uL Urine WBC (Auto) 11 H (0-5) /hpf Urine RBC (Auto) 27216 H (0-3) /hpf Urine Bacteria Occ H (<OCC) 09/20/17 09/20/17 09/20/17 Range/Units 06:00 06:00 05:27 WBC 17.9 H (4.8-10.8) K/uL RBC 3.59 L (3.80-5.20) Mil/uL Hgb 10.9 L (11.0-16.0) g/dL Hct 32.3 L (34.0-47.0) % MCV 89.9 (81.0-99.0) fL MCH 30.4 (27.0-31.0) pg MCHC 33.8 (33.0-37.0) g/dL RDW 16.2 H (11.5-14.5) % Plt Count 257 (130-400) K/uL MPV 7.2 (7.2-11.7) fL Neut % (Auto) 94.2 H (50.0-75.0) % Lymph % (Auto) 2.6 L (20.0-40.0) % [place] % (Auto) 3.1 (0.0-10.0) % Eos % (Auto) 0.0 (0.0-4.0) % Baso % (Auto) 0.1 (0.0-2.0) % Neut # 16.8 H (1.8-7.0) K/uL Lymph # 0.5 L (1.0-4.3) K/uL [place] # 0.5 (0.0-0.8) K/uL Eos # 0.0 (0.0-0.7) K/uL Baso # 0.0 (0.0-0.2) K/uL Neutrophils % (Manual) 90 H (50-75) % Band Neutrophils % 5 H (0-2) % Lymphocytes % (Manual) 2 L (20-40) % Monocytes % (Manual) 3 (0-10) % Platelet Estimate Normal (NORMAL) Poikilocytosis (manual Slight Anisocytosis (manual) Slight Sodium 137 (132-148) mmol/L Potassium 4.2 (3.6-5.2) mmol/L Chloride 104 (98-107) mmol/L Carbon Dioxide 26 (22-30) mmol/L Anion Gap 11 (10-20) BUN 13 (7-17) mg/dL Creatinine 1.1 (0.7-1.2) mg/dL Est GFR ( Amer) 58 Est GFR (Non-Af Amer) 48 POC Glucose (mg/dL) 175 H (65-110) mg/dL Random Glucose 173 H (65-105) mg/dL Calcium 7.5 L (8.6-10.4) mg/dl Phosphorus 4.8 H (2.5-4.5) mg/dL Magnesium 1.3 L (1.6-2.3) mg/dL Total Bilirubin 0.7 (0.2-1.3) mg/dL AST 23 (14-36) U/L ALT 34 (9-52) U/L Alkaline Phosphatase 47 (38-126) U/L Total Protein 5.8 L (6.3-8.3) g/dL Albumin 2.8 L (3.5-5.0) g/dL Globulin 3.1 (2.2-3.9) gm/dL Albumin/Globulin Ratio 0.9 L (1.0-2.1) Urine Color (YELLOW) Urine Clarity (Clear) Urine pH (5.0-8.0) Ur Specific [place] (1.003-1.030) Urine Protein (NEGATIVE) mg/dL Urine Glucose (UA) (Normal) mg/dL Urine Ketones (NEGATIVE) mg/dL Urine Blood (NEGATIVE) Urine Nitrate (NEGATIVE) Urine Bilirubin (NEGATIVE) Urine Urobilinogen (0.2-1.0) mg/dL Ur Leukocyte Esterase (Negative) Eduardo/uL Urine WBC (Auto) (0-5) /hpf Urine RBC (Auto) (0-3) /hpf Urine Bacteria (<OCC) 09/19/ Range/Units 23:43 WBC (4.8-10.8) K/uL RBC (3.80-5.20) Mil/uL Hgb (11.0-16.0) g/dL Hct (34.0-47.0) % MCV (81.0-99.0) fL MCH (27.0-31.0) pg MCHC (33.0-37.0) g/dL RDW (11.5-14.5) % Plt Count (130-400) K/uL MPV (7.2-11.7) fL Neut % (Auto) (50.0-75.0) % Lymph % (Auto) (20.0-40.0) % [place] % (Auto) (0.0-10.0) % Eos % (Auto) (0.0-4.0) % Baso % (Auto) (0.0-2.0) % Neut # (1.8-7.0) K/uL Lymph # (1.0-4.3) K/uL [place] # (0.0-0.8) K/uL Eos # (0.0-0.7) K/uL Baso # (0.0-0.2) K/uL Neutrophils % (Manual) (50-75) % Band Neutrophils % (0-2) % Lymphocytes % (Manual) (20-40) % Monocytes % (Manual) (0-10) % Platelet Estimate (NORMAL) Poikilocytosis (manual Anisocytosis (manual) Sodium (132-148) mmol/L Potassium (3.6-5.2) mmol/L Chloride (98-107) mmol/L Carbon Dioxide (22-30) mmol/L Anion Gap (10-20) BUN (7-17) mg/dL Creatinine (0.7-1.2) mg/dL Est GFR ( Amer) Est GFR (Non-Af Amer) POC Glucose (mg/dL) 189 H (65-110) mg/dL Random Glucose (65-105) mg/dL Calcium (8.6-10.4) mg/dl Phosphorus (2.5-4.5) mg/dL Magnesium (1.6-2.3) mg/dL Total Bilirubin (0.2-1.3) mg/dL AST (14-36) U/L ALT (9-52) U/L Alkaline Phosphatase (38-126) U/L Total Protein (6.3-8.3) g/dL Albumin (3.5-5.0) g/dL Globulin (2.2-3.9) gm/dL Albumin/Globulin Ratio (1.0-2.1) Urine Color (YELLOW) Urine Clarity (Clear) Urine pH (5.0-8.0) Ur Specific [place] (1.003-1.030) Urine Protein (NEGATIVE) mg/dL Urine Glucose (UA) (Normal) mg/dL Urine Ketones (NEGATIVE) mg/dL Urine Blood (NEGATIVE) Urine Nitrate (NEGATIVE) Urine Bilirubin (NEGATIVE) Urine Urobilinogen (0.2-1.0) mg/dL Ur Leukocyte Esterase (Negative) Eduardo/uL Urine WBC (Auto) (0-5) /hpf Urine RBC (Auto) (0-3) /hpf Urine Bacteria (<OCC) Laboratory Results - last 24 hr 09/19/17 09/20/17 09/20/17 23:43 05:27 06:00 WBC 17.9 H RBC 3.59 L Hgb 10.9 L Hct 32.3 L MCV 89.9 MCH 30.4 MCHC 33.8 RDW 16.2 H Plt Count 257 MPV 7.2 Neut % (Auto) 94.2 H Lymph % (Auto) 2.6 L [place] % (Auto) 3.1 Eos % (Auto) 0.0 Baso % (Auto) 0.1 Neut # 16.8 H Lymph # 0.5 L [place] # 0.5 Eos # 0.0 Baso # 0.0 Neutrophils % (Manual) 90 H Band Neutrophils % 5 H Lymphocytes % (Manual) 2 L Monocytes % (Manual) 3 Platelet Estimate Normal Poikilocytosis (manual Slight Anisocytosis (manual) Slight Sodium Potassium Chloride Carbon Dioxide Anion Gap BUN Creatinine Est GFR ( Amer) Est GFR (Non-Af Amer) POC Glucose (mg/dL) 189 H 175 H Random Glucose Calcium Phosphorus Magnesium Total Bilirubin AST ALT Alkaline Phosphatase Total Protein Albumin Globulin Albumin/Globulin Ratio Urine Color Urine Clarity Urine pH Ur Specific [place] Urine Protein Urine Glucose (UA) Urine Ketones Urine Blood Urine Nitrate Urine Bilirubin Urine Urobilinogen Ur Leukocyte Esterase Urine WBC (Auto) Urine RBC (Auto) Urine Bacteria 09/20/17 09/20/17 09/20/17 06:00 09:55 12:09 WBC RBC Hgb Hct MCV MCH MCHC RDW Plt Count MPV Neut % (Auto) Lymph % (Auto) [place] % (Auto) Eos % (Auto) Baso % (Auto) Neut # Lymph # [place] # Eos # Baso # Neutrophils % (Manual) Band Neutrophils % Lymphocytes % (Manual) Monocytes % (Manual) Platelet Estimate Poikilocytosis (manual Anisocytosis (manual) Sodium 137 Potassium 4.2 Chloride 104 Carbon Dioxide 26 Anion Gap 11 BUN 13 Creatinine 1.1 Est GFR ( Amer) 58 Est GFR (Non-Af Amer) 48 POC Glucose (mg/dL) 156 H Random Glucose 173 H Calcium 7.5 L Phosphorus 4.8 H Magnesium 1.3 L Total Bilirubin 0.7 AST 23 ALT 34 Alkaline Phosphatase 47 Total Protein 5.8 L Albumin 2.8 L Globulin 3.1 Albumin/Globulin Ratio 0.9 L Urine Color Red Urine Clarity Hazy Urine pH 6.0 Ur Specific [place] 1.015 Urine Protein 2+ H Urine Glucose (UA) 1+ Urine Ketones Trace Urine Blood 2+ H Urine Nitrate Negative Urine Bilirubin Negative Urine Urobilinogen Normal Ur Leukocyte Esterase Trace Urine WBC (Auto) 11 H Urine RBC (Auto) 04938 H Urine Bacteria Occ H 09/20/17 18:22 WBC RBC Hgb Hct MCV MCH MCHC RDW Plt Count MPV Neut % (Auto) Lymph % (Auto) [place] % (Auto) Eos % (Auto) Baso % (Auto) Neut # Lymph # [place] # Eos # Baso # Neutrophils % (Manual) Band Neutrophils % Lymphocytes % (Manual) Monocytes % (Manual) Platelet Estimate Poikilocytosis (manual Anisocytosis (manual) Sodium Potassium Chloride Carbon Dioxide Anion Gap BUN Creatinine Est GFR ( Amer) Est GFR (Non-Af Amer) POC Glucose (mg/dL) 115 H Random Glucose Calcium Phosphorus Magnesium Total Bilirubin AST ALT Alkaline Phosphatase Total Protein Albumin Globulin Albumin/Globulin Ratio Urine Color Urine Clarity Urine pH Ur Specific [place] Urine Protein Urine Glucose (UA) Urine Ketones Urine Blood Urine Nitrate Urine Bilirubin Urine Urobilinogen Ur Leukocyte Esterase Urine WBC (Auto) Urine RBC (Auto) Urine Bacteria Fingerstick Blood Sugar Results: 115 Critical Care Progress Note - Nutrition Nutrition: Nutrition Category Date Time Status NPO Diet [DIET] Diets 09/20/17 Dinner Active Assessment/Plan - Assessment and Plan (Free Text) Plan: POD #1: no BM no flatus -Hematuria: continue IVF to gently hydration, continue conchita-op abx -pain: on -Q pump -monitor post surgery -Surgery team to follow up -continue DVT/PUD ppx - Date & Time Date: 09/20/17 Time: 22:00
--- NOTE | 2017-09-20 23:47 | CP.PCM.PN ---
Subjective - Date & Time of Evaluation Date of Evaluation: 09/20/17 Time of Evaluation: 18:35 - Subjective Subjective: Patient awake, alert in NAD sitting in chair, no flatus, no BM today Objective - Vital Signs/Intake and Output Vital Signs (last 24 hours): Temp Pulse Resp BP Pulse Ox 99.3 F 76 15 149/75 99 09/20/17 20:00 09/20/17 19:20 09/20/17 19:20 09/20/17 17:52 09/20/17 19:20 Intake and Output: 09/20/17 09/21/17 18:59 06:59 Intake Total 1210 Output Total 460 Balance 750 - Medications Medications: Current Medications Guaifenesin (Robitussin) 200 mg PO Q4H PRN PRN Reason: Cough and congestion Last Admin: 09/18/17 13:46 Dose: 200 mg Heparin Sodium (Porcine) (Heparin) 5,000 units SC Q8 SUMIT Hydromorphone HCl (Dilaudid) 0.5 mg IVP Q3H PRN PRN Reason: Pain, Mild (1-3) Last Admin: 09/20/17 08:12 Dose: 0.5 mg Lactated Ringer's (Lactated Ringer's 500ml) 500 mls @ 75 mls/hr IV .Q6H40M [facility] Last Admin: 09/20/17 13:57 Dose: Not Given BUPIVACAINE 0.125%/0.9% NACL (Bupivacaine-Ns 0.125% On-Q [employer]) 600 mls @ 4 mls/ hr IJ Q150H PRN Last Admin: 09/19/17 15:55 Dose: 0 mls Cefazolin Sodium 1 gm/ (Dextrose) 50 mls @ 100 mls/hr IVPB Q8H SUMIT Insulin Human Regular (Novolin R) 0 unit SC Q6H SUMIT PRN Reason: Protocol Last Admin: 09/20/17 18:27 Dose: Not Given Levothyroxine Sodium (Synthroid) 100 mcg PO DAILY@0630 [facility] Last Admin: 09/20/17 05:30 Dose: Not Given Losartan Potassium (Cozaar) 100 mg PO DAILY [facility] Last Admin: 09/19/17 10:00 Dose: Not Given Pantoprazole Sodium (Protonix Inj) 40 mg IVP DAILY [facility] Last Admin: 09/20/17 09:21 Dose: 40 mg - Labs Labs: 09/20/17 06:00 09/20/17 06:00 PT 12.2 SECONDS (9.7-12.2) 09/17/17 06:48 INR 1.1 09/17/17 06:48 APTT 32 SECONDS (21-34) 09/16/17 12:34 Assessment and Plan (1) Abdominal pain Status: Acute (2) Gastrointestinal hemorrhage Status: Acute (3) Mass of colon Status: Acute
[2017-09-21] MEDS: (Novolin R) Insulin Human Regular 100 units/ml vial SC SCH ×4 (01:02→17:17)
[2017-09-21] MEDS: Lactated Ringer's 500 ML IV SCH ×2 (02:00)
[2017-09-21] MEDS: Levothyroxine 100 MCG TAB PO SCH (05:34)
--- NOTE | 2017-09-21 06:11 | CP.PCM.PN ---
Subjective - Date & Time of Evaluation Date of Evaluation: 09/21/17 Time of Evaluation: 05:45 - Subjective Subjective: Surgery Progress note. Dr. Miner Pt seen and examined at bedside. Resting comfortably. Pain well controlled. Denies N/V/D. Denies Flatus, Denies BM. Urinary catheter in place with Dark yellow urine output. No New complaints Objective - Vital Signs/Intake and Output Vital Signs (last 24 hours): Temp Pulse Resp BP Pulse Ox 99.3 F 73 12 179/65 H 100 09/20/17 20:00 09/21/17 01:20 09/21/17 01:20 09/21/17 00:51 09/21/17 01:20 Intake and Output: 09/20/17 09/21/17 18:59 06:59 Intake Total 1210 Output Total 460 Balance 750 - Medications Medications: Current Medications Guaifenesin (Robitussin) 200 mg PO Q4H PRN PRN Reason: Cough and congestion Last Admin: 09/18/17 13:46 Dose: 200 mg Heparin Sodium (Porcine) (Heparin) 5,000 units SC Q8 [facility] Last Admin: 09/21/17 05:32 Dose: 5,000 units Hydromorphone HCl (Dilaudid) 0.5 mg IVP Q3H PRN PRN Reason: Pain, Mild (1-3) Last Admin: 09/20/17 08:12 Dose: 0.5 mg Lactated Ringer's (Lactated Ringer's 500ml) 500 mls @ 75 mls/hr IV .Q6H40M [facility] Last Admin: 09/21/17 02:00 Dose: Not Given BUPIVACAINE 0.125%/0.9% NACL (Bupivacaine-Ns 0.125% On-Q [employer] Cook) 600 mls @ 4 mls/ hr IJ Q150H PRN Last Admin: 09/19/17 15:55 Dose: 0 mls Cefazolin Sodium 1 gm/ (Dextrose) 50 mls @ 100 mls/hr IVPB Q8H [facility] Last Admin: 09/21/17 03:00 Dose: 100 mls/hr Dextrose (Dextrose 5% In Water 1000 Ml) 1,000 mls @ 30 mls/hr IV .Q24H [facility] Stop: 09/22/17 06:01 Insulin Human Regular (Novolin R) 0 unit SC Q6H [facility] PRN Reason: Protocol Last Admin: 09/21/17 06:00 Dose: Not Given Levothyroxine Sodium (Synthroid) 100 mcg PO DAILY@0630 [facility] Last Admin: 09/21/17 05:34 Dose: Not Given Losartan Potassium (Cozaar) 100 mg PO DAILY [facility] Last Admin: 09/19/17 10:00 Dose: Not Given Pantoprazole Sodium (Protonix Inj) 40 mg IVP DAILY [facility] Last Admin: 09/20/17 09:21 Dose: 40 mg - Labs Labs: 09/20/17 06:00 09/20/17 06:00 PT 12.2 SECONDS (9.7-12.2) 09/17/17 06:48 INR 1.1 09/17/17 06:48 APTT 32 SECONDS (21-34) 09/16/17 12:34 - Constitutional Appears: Non-toxic, No Acute Distress - Head Exam Head Exam: ATRAUMATIC, NORMAL INSPECTION, NORMOCEPHALIC - Eye Exam Eye Exam: EOMI - ENT Exam ENT Exam: Mucous Membranes Moist - Respiratory Exam Respiratory Exam: NORMAL BREATHING PATTERN. absent: Accessory Muscle Use, Respiratory Distress - GI/Abdominal Exam GI & Abdominal Exam: Soft. absent: Distended, Firm, Guarding, Rigid Additional comments: Cachectic. Midline incision intact, Dressing clean and dry. Carlos Drain in place : 60cc/12hrs. Soft, non-distended - Exam Additional comments: Contreras in place. Dark yellow urine. - Extremities Exam Extremities Exam: Normal Inspection. absent: Calf Tenderness - Neurological Exam Neurological Exam: Alert, Awake, Oriented x3 - Psychiatric Exam Psychiatric exam: Normal Affect, Normal Mood - Skin Skin Exam: Dry, Intact, Normal Color, Warm Assessment and Plan - Assessment and Plan (Free Text) Assessment: 82yo F with bleeding recto-sigmoid mass s/p Low Anterior Resection w/ EEA on . POD2 - NPO for now. May have sips/ice chips - Possible D/C Contreras today - continue with pain management - DVT PPx - f/u path - Recommend PT eval and treat - Encourage OOBTC, Ambulation. IS use - Awaiting bowel fxn Further Recs as per Dr. Isidra Tapia PGY1 surgery pager: [phone]
[2017-09-21 06:34] LABS: BASO % 0.3 % (0.0-2.0); EOS % 0.1 % (0.0-4.0); HEMATOCRIT 27.6 % (34.0-47.0); LYMPH # 1.2 K/uL (1.0-4.3); LYMPH % 9.3 % (20.0-40.0); MEAN CELL VOLUME 89.9 fL (81.0-99.0); MEAN CORPUSCULAR HGB CONC 33.3 g/dL (33.0-37.0); MEAN PLATELET VOLUME 7.6 fL (7.2-11.7); MONO % 7.4 % (0.0-10.0); PLATELET COUNT 227 K/uL (130-400); RED CELL DISTRIBUTION WIDTH 16.6 % (11.5-14.5); WHITE BLOOD COUNT 13.1 K/uL (4.8-10.8)
[2017-09-21 06:57] LABS: ALB/GLOB RATIO 1.1 (1.0-2.1); BILIRUBIN,TOTAL 0.5 mg/dL (0.2-1.3); CALCIUM 6.9 mg/dl (8.6-10.4); MAGNESIUM 1.6 mg/dL (1.6-2.3); PHOSPHOROUS 4.1 mg/dL (2.5-4.5); POTASSIUM 4.2 mmol/L (3.6-5.2); TOTAL PROTEIN 4.6 g/dL (6.3-8.3)
[2017-09-21] MEDS: Sodium Chloride 0.9% 1,000 ML IV SCH (07:50)
--- NOTE | 2017-09-21 07:51 | CP.PCM.PN ---
<Lorraine Rosa - Last Filed: 09/21/17 07:51> Subjective - Date & Time of Evaluation Date of Evaluation: 09/21/17 Time of Evaluation: 07:48 - Subjective Subjective: Gastroenterology Fellow/PGY5 Progress Note Patient notes abdominal soreness with pain produced during palpation and movement. Tolerating ice chips. Sat out to chair yesterday. A 12-point review of systems negative except for as above. Objective - Vital Signs/Intake and Output Vital Signs (last 24 hours): Temp Pulse Resp BP Pulse Ox 98.6 F 65 13 114/69 100 09/21/17 04:00 09/21/17 07:00 09/21/17 07:00 09/21/17 06:51 09/21/17 07:00 Intake and Output: 09/21/17 09/21/17 06:59 18:59 Intake Total 880 105 Output Total 363 43 Balance 517 62 - Medications Medications: Current Medications Guaifenesin (Robitussin) 200 mg PO Q4H PRN PRN Reason: Cough and congestion Last Admin: 09/18/17 13:46 Dose: 200 mg Heparin Sodium (Porcine) (Heparin) 5,000 units SC Q8 [facility] Last Admin: 09/21/17 05:32 Dose: 5,000 units Hydromorphone HCl (Dilaudid) 0.5 mg IVP Q3H PRN PRN Reason: Pain, Mild (1-3) Last Admin: 09/20/17 08:12 Dose: 0.5 mg BUPIVACAINE 0.125%/0.9% NACL (Bupivacaine-Ns 0.125% On-Q [employer] Operator) 600 mls @ 4 mls/ hr IJ Q150H PRN Last Admin: 09/19/17 15:55 Dose: 0 mls Cefazolin Sodium 1 gm/ (Dextrose) 50 mls @ 100 mls/hr IVPB Q8H [facility] Last Admin: 09/21/17 03:00 Dose: 100 mls/hr Dextrose (Dextrose 5% In Water 1000 Ml) 1,000 mls @ 30 mls/hr IV .Q24H [facility] Stop: 09/22/17 06:01 Last Admin: 09/21/17 06:05 Dose: 30 mls/hr Sodium Chloride (Sodium Chloride 0.9%) 1,000 mls @ 75 mls/hr IV .[id number] [facility] Insulin Human Regular (Novolin R) 0 unit SC Q6H [facility] PRN Reason: Protocol Last Admin: 09/21/17 06:00 Dose: Not Given Levothyroxine Sodium (Synthroid) 100 mcg PO DAILY@0630 [facility] Last Admin: 09/21/17 05:34 Dose: Not Given Losartan Potassium (Cozaar) 100 mg PO DAILY [facility] Last Admin: 09/19/17 10:00 Dose: Not Given Pantoprazole Sodium (Protonix Inj) 40 mg IVP DAILY [facility] Last Admin: 09/20/17 09:21 Dose: 40 mg - Labs Labs: 09/21/17 06:28 09/21/17 06:28 PT 12.2 SECONDS (9.7-12.2) 09/17/17 06:48 INR 1.1 09/17/17 06:48 APTT 32 SECONDS (21-34) 09/16/17 12:34 - Constitutional Appears: Non-toxic, No Acute Distress - Head Exam Head Exam: ATRAUMATIC, NORMOCEPHALIC - Eye Exam Eye Exam: EOMI, PERRL Pupil Exam: PERRL. absent: Miosis, Mydriatic - ENT Exam ENT Exam: Mucous Membranes Moist, Normal Oropharynx - Neck Exam Neck Exam: Full ROM, Normal Inspection - Respiratory Exam Respiratory Exam: Clear to Ausculation Bilateral. absent: Rales, Rhonchi, Wheezes - Cardiovascular Exam Cardiovascular Exam: RRR, +S1, +S2. absent: Gallop, Rubs - GI/Abdominal Exam GI & Abdominal Exam: Soft, Tenderness, Normal Bowel Sounds. absent: Distended, Firm, Guarding, Rigid, Organomegaly, Rebound Additional comments: B/L LQ tenderness, bandage B/L C/D/I, RLQ NOEMÍ with minimal serosanguinous drainage, On-Q pump LLQ - Extremities Exam Extremities Exam: Normal Inspection. absent: Pedal Edema - Neurological Exam Neurological Exam: Alert, Awake - Psychiatric Exam Psychiatric exam: Normal Affect, Normal Mood - Skin Skin Exam: Dry, Intact, Normal Color, Warm Assessment and Plan - Assessment and Plan (Free Text) Assessment: 82 year old female with history of Hypertension and Hypothyroidism presenting with rectal bleeding, abdominal pain and weight loss. 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 H pylori Gastritis with focal intestinal metaplasia confirmed on EGD 09/17/17. Plan: >surgery managing >follow up surgical pathology >on Cefazolin/Flagyl >supportive care: pain control, PT, OOB to chair >recommend Oncology consult >outpatient follow up for H pylori treatment >will require future colonoscopy for complete exam to rule out synchronous lesions and polyps <Christophe Larsen - Last Filed: 09/21/17 11:01> Objective - Vital Signs/Intake and Output Vital Signs (last 24 hours): Temp Pulse Resp BP Pulse Ox 98.6 F 65 13 114/69 100 09/21/17 04:00 09/21/17 07:00 09/21/17 07:00 09/21/17 06:51 09/21/17 07:00 Intake and Output: 09/21/17 09/21/17 06:59 18:59 Intake Total 880 105 Output Total 363 43 Balance 517 62 - Medications Medications: Current Medications Heparin Sodium (Porcine) (Heparin) 5,000 units SC Q8 [facility] Last Admin: 09/21/17 05:32 Dose: 5,000 units Hydromorphone HCl (Dilaudid) 0.5 mg IVP Q3H PRN PRN Reason: Pain, Mild (1-3) Last Admin: 09/21/17 08:06 Dose: 0.5 mg BUPIVACAINE 0.125%/0.9% NACL (Bupivacaine-Ns 0.125% On-Q [employer] Operator) 600 mls @ 4 mls/ hr IJ Q150H PRN Last Admin: 09/19/17 15:55 Dose: 0 mls Cefazolin Sodium 1 gm/ (Dextrose) 50 mls @ 100 mls/hr IVPB Q8H [facility] Last Admin: 09/21/17 03:00 Dose: 100 mls/hr Sodium Chloride (Sodium Chloride 0.9%) 1,000 mls @ 75 mls/hr IV .[id number] [facility] Last Admin: 09/21/17 07:50 Dose: 75 mls/hr Dextrose (Dextrose 5% In Water 1000 Ml) 1,000 mls @ 50 mls/hr IV .Q20H [facility] Stop: 09/22/17 06:01 Last Admin: 09/21/17 09:26 Dose: 50 mls/hr Insulin Human Regular (Novolin R) 0 unit SC Q6H [facility] PRN Reason: Protocol Last Admin: 09/21/17 06:00 Dose: Not Given Levothyroxine Sodium (Synthroid) 100 mcg PO DAILY@0630 [facility] Last Admin: 09/21/17 05:34 Dose: Not Given Losartan Potassium (Cozaar) 100 mg PO DAILY [facility] Last Admin: 09/19/17 10:00 Dose: Not Given Pantoprazole Sodium (Protonix Inj) 40 mg IVP DAILY [facility] Last Admin: 09/21/17 09:27 Dose: 40 mg - Labs Labs: 09/21/17 06:28 09/21/17 06:28 PT 12.2 SECONDS (9.7-12.2) 09/17/17 06:48 INR 1.1 09/17/17 06:48 APTT 32 SECONDS (21-34) 09/16/17 12:34 Attending/Attestation - Attestation I have personally seen and examined this patient.: Yes I have fully participated in the care of the patient.: Yes I have reviewed all pertinent clinical information, including history, physical exam and plan: Yes Notes (Text): 09/21/17 11:01 82 year old female with newly diagnosed rectal cancer. 1. Rectal cancer 2. Helicobacter pylori gastritis Plan: -s/p LAR - doing well - post op care per surgery -await final path - appreciate oncology eval -treatment for h pylori can begin after surgery/recovery
[2017-09-21] MEDS: HYDROmorphone 0.5 mg/0.5 ml ISec IVP PRN (08:06)
[2017-09-21 08:21] LABS: NEUTROPHIL 82 % (50-75); TOTAL CELLS COUNTED 100
--- NOTE | 2017-09-21 08:44 | CP.CCUPN ---
CCU Subjective - Physician Review Events Since Last Encounter (Free Text): 09/21/17 08:43 82-year-old female with a history of hypothyroidism found to have colon cancer, underwent low anterior resection of the sigmoid colon and anastomosis. Patient currently in the ICU for monitoring. Patient is awake and responding. Not in any distress. Urine is still dark, but it is less. Not eating well. IV fluid is on. Patient is trying to make BM. CCU Objective - Vital Signs / Intake & Output Vital Signs (Last 4 hours): Vital Signs Pulse Resp BP Pulse Ox 09/21/17 07:00 65 13 100 09/21/17 06:51 67 13 114/69 100 09/21/17 06:50 67 10 L 100 09/21/17 06:40 66 11 L 09/21/17 06:30 66 10 L 100 09/21/17 06:20 69 13 100 09/21/17 06:10 66 10 L 100 09/21/17 06:00 67 11 L 100 09/21/17 05:50 69 12 99 09/21/17 05:40 70 10 L 98 09/21/17 05:30 65 12 100 09/21/17 05:20 69 13 100 09/21/17 05:10 65 13 100 09/21/17 05:00 66 12 100 09/21/17 04:51 65 12 136/63 100 09/21/17 04:50 68 11 L 100 Intake and Output (Last 8hrs): Intake & Output 09/20/17 09/21/17 09/21/17 22:59 06:59 14:59 Intake Total 675 655 105 Output Total 214 264 43 Balance 461 391 62 Weight 134 lb 4 oz Intake: Intake, IV Amount 675 655 105 Left Hand 450 Right Hand 225 625 75 Right Hand Y Port 30 30 Oral 0 0 0 Output: Drainage 15 10 Right Abdomen 15 10 Urine 199 264 33 Urethral (Contreras) 199 264 33 Vital signs reviewed No neck vein distention noted Chest good air entry bilaterally, no wheezing or rales noted CVS regular heart sound, no murmur noted Abdomen soft, nontender. Extremities no pedal edema [employer] alert awake oriented -3, no functional neurological deficit - Physical Exam Head: Positive for: Atraumatic, Normocephalic Cardiovascular: Positive for: Regular Rate and Rhythm, Normal S1, S2 Abdomen: Positive for: Tenderness. Negative for: Peritoneal Signs, Guarding Lower Extremity: Positive for: Normal Inspection Psychiatric: Positive for: Alert, Oriented x 3 - Medications Active Medications: Active Medications Generic Name Dose Route Start Last Admin Trade Name Freq PRN Reason Stop Dose Admin Guaifenesin 200 mg 09/18/17 12:32 09/18/17 13:46 Robitussin PO 200 mg Q4H PRN Administration Cough and congestion Heparin Sodium (Porcine) 5,000 units 09/20/17 22:00 09/21/17 05:32 Heparin SC 5,000 units Q8 [facility] Administration Hydromorphone HCl 0.5 mg 09/19/17 15:47 09/21/17 08:06 Dilaudid IVP 0.5 mg Q3H PRN Administration Pain, Mild (1-3) BUPIVACAINE 0.125%/0.9% NACL 600 mls @ 4 mls/hr 09/19/17 13:57 09/19/17 15:55 Bupivacaine-Ns 0.125% On-Q [employer] IJ 0 mls Q150H PRN Administration Cefazolin Sodium 1 gm/ 50 mls @ 100 mls/hr 09/21/17 04:00 09/21/17 03:00 Dextrose IVPB 100 mls/hr Q8H [facility] Administration Dextrose 1,000 mls @ 30 mls/hr 09/21/17 06:00 09/21/17 06:05 Dextrose 5% In Water 1000 Ml IV 09/22/17 06:01 30 mls/hr .Q24H [facility] Administration Sodium Chloride 1,000 mls @ 75 mls/hr 09/21/17 07:30 09/21/17 07:50 Sodium Chloride 0.9% IV 75 mls/hr .[id number] [facility] Administration Insulin Human Regular 0 unit 09/20/17 00:00 09/21/17 06:00 Novolin R SC Not Given Q6H [facility] Protocol Levothyroxine Sodium 100 mcg 09/18/17 06:30 09/21/17 05:34 Synthroid PO Not Given DAILY@0630 [facility] Losartan Potassium 100 mg 09/18/17 10:00 09/19/17 10:00 Cozaar PO Not Given DAILY [facility] Pantoprazole Sodium 40 mg 09/20/17 10:00 09/20/17 09:21 Protonix Inj IVP 40 mg DAILY [facility] Administration - Patient Studies Lab Studies: Microbiology Studies 09/19/17 21:43 MRSA Culture (Admit) - Final Naris MRSA NOT DETECTED Lab Studies 09/21/17 09/21/17 09/21/17 Range/Units 06:28 06:28 05:48 WBC 13.1 H (4.8-10.8) K/uL RBC 3.07 L (3.80-5.20) Mil/uL Hgb 9.2 L (11.0-16.0) g/dL Hct 27.6 L (34.0-47.0) % MCV 89.9 (81.0-99.0) fL MCH 30.0 (27.0-31.0) pg MCHC 33.3 (33.0-37.0) g/dL RDW 16.6 H (11.5-14.5) % Plt Count 227 (130-400) K/uL MPV 7.6 (7.2-11.7) fL Neut % (Auto) 82.9 H (50.0-75.0) % Lymph % (Auto) 9.3 L (20.0-40.0) % Jenkins % (Auto) 7.4 (0.0-10.0) % Eos % (Auto) 0.1 (0.0-4.0) % Baso % (Auto) 0.3 (0.0-2.0) % Neut # 10.9 H (1.8-7.0) K/uL Lymph # 1.2 (1.0-4.3) K/uL Jenkins # 1.0 H (0.0-0.8) K/uL Eos # 0.0 (0.0-0.7) K/uL Baso # 0.0 (0.0-0.2) K/uL Neutrophils % (Manual) 82 H (50-75) % Band Neutrophils % 1 (0-2) % Lymphocytes % (Manual) 9 L (20-40) % Monocytes % (Manual) 8 (0-10) % Platelet Estimate Normal (NORMAL) Poikilocytosis (manual Anisocytosis (manual) Slight Sodium 135 (132-148) mmol/L Potassium 4.2 (3.6-5.2) mmol/L Chloride 104 (98-107) mmol/L Carbon Dioxide 25 (22-30) mmol/L Anion Gap 10 (10-20) BUN 20 H (7-17) mg/dL Creatinine 1.2 (0.7-1.2) mg/dL Est GFR ( Amer) 52 Est GFR (Non-Af Amer) 43 POC Glucose (mg/dL) 70 (65-110) mg/dL Random Glucose 63 L (65-105) mg/dL Calcium 6.9 L (8.6-10.4) mg/dl Phosphorus 4.1 (2.5-4.5) mg/dL Magnesium 1.6 (1.6-2.3) mg/dL Total Bilirubin 0.5 (0.2-1.3) mg/dL AST 19 (14-36) U/L ALT 33 (9-52) U/L Alkaline Phosphatase 42 (38-126) U/L Total Protein 4.6 L (6.3-8.3) g/dL Albumin 2.4 L (3.5-5.0) g/dL Globulin 2.2 (2.2-3.9) gm/dL Albumin/Globulin Ratio 1.1 (1.0-2.1) Urine Color (YELLOW) Urine Clarity (Clear) Urine pH (5.0-8.0) Ur Specific [place] (1.003-1.030) Urine Protein (NEGATIVE) mg/dL Urine Glucose (UA) (Normal) mg/dL Urine Ketones (NEGATIVE) mg/dL Urine Blood (NEGATIVE) Urine Nitrate (NEGATIVE) Urine Bilirubin (NEGATIVE) Urine Urobilinogen (0.2-1.0) mg/dL Ur Leukocyte Esterase (Negative) Eduardo/uL Urine WBC (Auto) (0-5) /hpf Urine RBC (Auto) (0-3) /hpf Urine Bacteria (<OCC) 09/21/17 09/21/17 09/20/17 Range/Units 05:41 01:00 18:22 WBC (4.8-10.8) K/uL RBC (3.80-5.20) Mil/uL Hgb (11.0-16.0) g/dL Hct (34.0-47.0) % MCV (81.0-99.0) fL MCH (27.0-31.0) pg MCHC (33.0-37.0) g/dL RDW (11.5-14.5) % Plt Count (130-400) K/uL MPV (7.2-11.7) fL Neut % (Auto) (50.0-75.0) % Lymph % (Auto) (20.0-40.0) % Jenkins % (Auto) (0.0-10.0) % Eos % (Auto) (0.0-4.0) % Baso % (Auto) (0.0-2.0) % Neut # (1.8-7.0) K/uL Lymph # (1.0-4.3) K/uL Jenkins # (0.0-0.8) K/uL Eos # (0.0-0.7) K/uL Baso # (0.0-0.2) K/uL Neutrophils % (Manual) (50-75) % Band Neutrophils % (0-2) % Lymphocytes % (Manual) (20-40) % Monocytes % (Manual) (0-10) % Platelet Estimate (NORMAL) Poikilocytosis (manual Anisocytosis (manual) Sodium (132-148) mmol/L Potassium (3.6-5.2) mmol/L Chloride (98-107) mmol/L Carbon Dioxide (22-30) mmol/L Anion Gap (10-20) BUN (7-17) mg/dL Creatinine (0.7-1.2) mg/dL Est GFR ( Amer) Est GFR (Non-Af Amer) POC Glucose (mg/dL) 67 83 115 H (65-110) mg/dL Random Glucose (65-105) mg/dL Calcium (8.6-10.4) mg/dl Phosphorus (2.5-4.5) mg/dL Magnesium (1.6-2.3) mg/dL Total Bilirubin (0.2-1.3) mg/dL AST (14-36) U/L ALT (9-52) U/L Alkaline Phosphatase (38-126) U/L Total Protein (6.3-8.3) g/dL Albumin (3.5-5.0) g/dL Globulin (2.2-3.9) gm/dL Albumin/Globulin Ratio (1.0-2.1) Urine Color (YELLOW) Urine Clarity (Clear) Urine pH (5.0-8.0) Ur Specific [place] (1.003-1.030) Urine Protein (NEGATIVE) mg/dL Urine Glucose (UA) (Normal) mg/dL Urine Ketones (NEGATIVE) mg/dL Urine Blood (NEGATIVE) Urine Nitrate (NEGATIVE) Urine Bilirubin (NEGATIVE) Urine Urobilinogen (0.2-1.0) mg/dL Ur Leukocyte Esterase (Negative) Eduardo/uL Urine WBC (Auto) (0-5) /hpf Urine RBC (Auto) (0-3) /hpf Urine Bacteria (<OCC) 09/20/17 09/20/17 09/20/17 Range/Units 12:09 09:55 06:00 WBC (4.8-10.8) K/uL RBC (3.80-5.20) Mil/uL Hgb (11.0-16.0) g/dL Hct (34.0-47.0) % MCV (81.0-99.0) fL MCH (27.0-31.0) pg MCHC (33.0-37.0) g/dL RDW (11.5-14.5) % Plt Count (130-400) K/uL MPV (7.2-11.7) fL Neut % (Auto) (50.0-75.0) % Lymph % (Auto) (20.0-40.0) % Jenkins % (Auto) (0.0-10.0) % Eos % (Auto) (0.0-4.0) % Baso % (Auto) (0.0-2.0) % Neut # (1.8-7.0) K/uL Lymph # (1.0-4.3) K/uL Jenkins # (0.0-0.8) K/uL Eos # (0.0-0.7) K/uL Baso # (0.0-0.2) K/uL Neutrophils % (Manual) 90 H (50-75) % Band Neutrophils % 5 H (0-2) % Lymphocytes % (Manual) 2 L (20-40) % Monocytes % (Manual) 3 (0-10) % Platelet Estimate Normal (NORMAL) Poikilocytosis (manual Slight Anisocytosis (manual) Slight Sodium (132-148) mmol/L Potassium (3.6-5.2) mmol/L Chloride (98-107) mmol/L Carbon Dioxide (22-30) mmol/L Anion Gap (10-20) BUN (7-17) mg/dL Creatinine (0.7-1.2) mg/dL Est GFR ( Amer) Est GFR (Non-Af Amer) POC Glucose (mg/dL) 156 H (65-110) mg/dL Random Glucose (65-105) mg/dL Calcium (8.6-10.4) mg/dl Phosphorus (2.5-4.5) mg/dL Magnesium (1.6-2.3) mg/dL Total Bilirubin (0.2-1.3) mg/dL AST (14-36) U/L ALT (9-52) U/L Alkaline Phosphatase (38-126) U/L Total Protein (6.3-8.3) g/dL Albumin (3.5-5.0) g/dL Globulin (2.2-3.9) gm/dL Albumin/Globulin Ratio (1.0-2.1) Urine Color Red (YELLOW) Urine Clarity Hazy (Clear) Urine pH 6.0 (5.0-8.0) Ur Specific [place] 1.015 (1.003-1.030) Urine Protein 2+ H (NEGATIVE) mg/dL Urine Glucose (UA) 1+ (Normal) mg/dL Urine Ketones Trace (NEGATIVE) mg/dL Urine Blood 2+ H (NEGATIVE) Urine Nitrate Negative (NEGATIVE) Urine Bilirubin Negative (NEGATIVE) Urine Urobilinogen Normal (0.2-1.0) mg/dL Ur Leukocyte Esterase Trace (Negative) Eduardo/uL Urine WBC (Auto) 11 H (0-5) /hpf Urine RBC (Auto) 48423 H (0-3) /hpf Urine Bacteria Occ H (<OCC) Laboratory Results - last 24 hr 09/20/17 09/20/17 09/20/17 06:00 09:55 12:09 WBC RBC Hgb Hct MCV MCH MCHC RDW Plt Count MPV Neut % (Auto) Lymph % (Auto) Jenkins % (Auto) Eos % (Auto) Baso % (Auto) Neut # Lymph # Jenkins # Eos # Baso # Neutrophils % (Manual) 90 H Band Neutrophils % 5 H Lymphocytes % (Manual) 2 L Monocytes % (Manual) 3 Platelet Estimate Normal Poikilocytosis (manual Slight Anisocytosis (manual) Slight Sodium Potassium Chloride Carbon Dioxide Anion Gap BUN Creatinine Est GFR ( Amer) Est GFR (Non-Af Amer) POC Glucose (mg/dL) 156 H Random Glucose Calcium Phosphorus Magnesium Total Bilirubin AST ALT Alkaline Phosphatase Total Protein Albumin Globulin Albumin/Globulin Ratio Urine Color Red Urine Clarity Hazy Urine pH 6.0 Ur Specific [place] 1.015 Urine Protein 2+ H Urine Glucose (UA) 1+ Urine Ketones Trace Urine Blood 2+ H Urine Nitrate Negative Urine Bilirubin Negative Urine Urobilinogen Normal Ur Leukocyte Esterase Trace Urine WBC (Auto) 11 H Urine RBC (Auto) 11820 H Urine Bacteria Occ H 09/20/17 09/21/17 09/21/17 18:22 01:00 05:41 WBC RBC Hgb Hct MCV MCH MCHC RDW Plt Count MPV Neut % (Auto) Lymph % (Auto) Jenkins % (Auto) Eos % (Auto) Baso % (Auto) Neut # Lymph # Jenkins # Eos # Baso # Neutrophils % (Manual) Band Neutrophils % Lymphocytes % (Manual) Monocytes % (Manual) Platelet Estimate Poikilocytosis (manual Anisocytosis (manual) Sodium Potassium Chloride Carbon Dioxide Anion Gap BUN Creatinine Est GFR ( Amer) Est GFR (Non-Af Amer) POC Glucose (mg/dL) 115 H 83 67 Random Glucose Calcium Phosphorus Magnesium Total Bilirubin AST ALT Alkaline Phosphatase Total Protein Albumin Globulin Albumin/Globulin Ratio Urine Color Urine Clarity Urine pH Ur Specific [place] Urine Protein Urine Glucose (UA) Urine Ketones Urine Blood Urine Nitrate Urine Bilirubin Urine Urobilinogen Ur Leukocyte Esterase Urine WBC (Auto) Urine RBC (Auto) Urine Bacteria 09/21/17 09/21/17 09/21/17 05:48 06:28 06:28 WBC 13.1 H RBC 3.07 L Hgb 9.2 L Hct 27.6 L MCV 89.9 MCH 30.0 MCHC 33.3 RDW 16.6 H Plt Count 227 MPV 7.6 Neut % (Auto) 82.9 H Lymph % (Auto) 9.3 L Jenkins % (Auto) 7.4 Eos % (Auto) 0.1 Baso % (Auto) 0.3 Neut # 10.9 H Lymph # 1.2 Jenkins # 1.0 H Eos # 0.0 Baso # 0.0 Neutrophils % (Manual) 82 H Band Neutrophils % 1 Lymphocytes % (Manual) 9 L Monocytes % (Manual) 8 Platelet Estimate Normal Poikilocytosis (manual Anisocytosis (manual) Slight Sodium 135 Potassium 4.2 Chloride 104 Carbon Dioxide 25 Anion Gap 10 BUN 20 H Creatinine 1.2 Est GFR ( Amer) 52 Est GFR (Non-Af Amer) 43 POC Glucose (mg/dL) 70 Random Glucose 63 L Calcium 6.9 L Phosphorus 4.1 Magnesium 1.6 Total Bilirubin 0.5 AST 19 ALT 33 Alkaline Phosphatase 42 Total Protein 4.6 L Albumin 2.4 L Globulin 2.2 Albumin/Globulin Ratio 1.1 Urine Color Urine Clarity Urine pH Ur Specific [place] Urine Protein Urine Glucose (UA) Urine Ketones Urine Blood Urine Nitrate Urine Bilirubin Urine Urobilinogen Ur Leukocyte Esterase Urine WBC (Auto) Urine RBC (Auto) Urine Bacteria Fingerstick Blood Sugar Results: 115 Critical Care Progress Note - Nutrition Nutrition: Nutrition Category Date Time Status NPO Diet [DIET] Diets 09/20/17 Dinner Active Assessment/Plan (1) Status post colectomy Assessment and plan: Patient with a sigmoid resection, ureteral stent placement. Patient is currently doing well. We'll transfer the patient to medical floor. Continue the IV fluid. Diet as per the surgery. Current Visit: Yes Status: Acute (2) Abdominal pain Current Visit: Yes Status: Acute
[2017-09-21] MEDS ORDERED: BUPIVACAINE 0.125%/0.9% NACL 600 ML IJ PRN (12:22)
[2017-09-21] MEDS: Dextrose 50% VIAL Inj (50 ml) IV ONE ×2 (17:44→18:21)
[2017-09-21] MEDS ORDERED: Dextrose 50% SYRINGE Inj (50 ml) IV ONE (17:45)
[2017-09-21] MEDS ORDERED: HYDROmorphone 0.5 mg/0.5 ml ISec IVP PRN (17:45)
--- NOTE | 2017-09-21 22:50 | CP.PCM.PN ---
Subjective - Date & Time of Evaluation Date of Evaluation: 09/21/17 Time of Evaluation: 17:00 - Subjective Subjective: Pt seen & evaluated today, minimal post op pain, is feeling better Objective - Vital Signs/Intake and Output Vital Signs (last 24 hours): Temp Pulse Resp BP Pulse Ox 99.4 F 72 20 158/78 H 97 09/21/17 21:14 09/21/17 21:14 09/21/17 21:14 09/21/17 21:14 09/21/17 21:14 Intake and Output: 09/21/17 09/22/17 18:59 06:59 Intake Total 2060 Output Total 568 Balance 1492 - Medications Medications: Current Medications Heparin Sodium (Porcine) (Heparin) 5,000 units SC Q8 [facility] Last Admin: 09/21/17 21:28 Dose: 5,000 units Hydromorphone HCl (Dilaudid) 0.5 mg IVP Q4H PRN PRN Reason: Pain, severe (8-10) Sodium Chloride (Sodium Chloride 0.9%) 1,000 mls @ 75 mls/hr IV .[id number] [facility] Last Admin: 09/21/17 07:50 Dose: 75 mls/hr Dextrose (Dextrose 5% In Water 1000 Ml) 1,000 mls @ 50 mls/hr IV .Q20H [facility] Stop: 09/22/17 06:01 Last Admin: 09/21/17 09:26 Dose: 50 mls/hr BUPIVACAINE 0.125%/0.9% NACL (Bupivacaine-Ns 0.125% On-Q Front Services Agent) 600 mls @ 4 mls/ hr IJ Q150H PRN PRN Reason: Pain, moderate (4-7) Insulin Human Regular (Novolin R) 0 unit SC Q6H [facility] PRN Reason: Protocol Last Admin: 09/21/17 17:17 Dose: Not Given Levothyroxine Sodium (Synthroid) 100 mcg PO DAILY@0630 [facility] Last Admin: 09/21/17 05:34 Dose: Not Given Losartan Potassium (Cozaar) 100 mg PO DAILY [facility] Last Admin: 09/19/17 10:00 Dose: Not Given Morphine Sulfate (Morphine) 4 mg IVP Q6H PRN PRN Reason: Pain, severe (8-10) Pantoprazole Sodium (Protonix Inj) 40 mg IVP DAILY [facility] Last Admin: 09/21/17 09:27 Dose: 40 mg - Labs Labs: 09/21/17 06:28 09/21/17 06:28 PT 12.2 SECONDS (9.7-12.2) 09/17/17 06:48 INR 1.1 09/17/17 06:48 APTT 32 SECONDS (21-34) 09/16/17 12:34 - Constitutional Appears: No Acute Distress - Head Exam Head Exam: ATRAUMATIC, NORMAL INSPECTION, NORMOCEPHALIC - Eye Exam Eye Exam: EOMI, Normal appearance, PERRL Pupil Exam: NORMAL ACCOMODATION, PERRL - Respiratory Exam Respiratory Exam: Clear to Ausculation Bilateral, NORMAL BREATHING PATTERN - Cardiovascular Exam Cardiovascular Exam: REGULAR RHYTHM, +S1, +S2. absent: Murmur - GI/Abdominal Exam GI & Abdominal Exam: Soft, Normal Bowel Sounds. absent: Tenderness Assessment and Plan (1) Abdominal pain Status: Acute (2) Gastrointestinal hemorrhage Status: Acute (3) Mass of colon Status: Acute
--- NOTE | 2017-09-22 00:33 | CON ---
DATE: 09/19/2017 UROLOGY CONSULTATION UROLOGY CONSULTATION REQUESTED BY: Xavier Miner Jr., MD UROLOGY CONSULTATION FILLED BY: Yamila Chaudhry MD REASON FOR CONSULTATION: Colon carcinoma. HISTORY OF PRESENT ILLNESS: Patient is an 82-year-old female with colon carcinoma. Patient is in, otherwise, good health. The patient presented with hematochezia. Patient had blood per rectum. She was admitted to the hospital on 09/16. 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 Patient is also found to have anemia. Mrs. Agarwal reports no history of previous urinary tract infection. No history of previous urolithiasis. Patient voices good urinary stream with good control. She has nocturia. No recent hematuria or dysuria. No flank pain. Patient has had nwkq-uk-smut appetite. Patient has history of previous labor and delivery. She has been otherwise well. Patient does not smoke. PHYSICAL EXAMINATION: GENERAL: Patient is well-developed, well-nourished elderly female. Patient is awake and alert. ABDOMEN: Soft, nontender, nondistended. No mass or organomegaly. BACK: No CVA tenderness. LABORATORY DATA: Reviewed. IMPRESSION: An 82-year-old female with colon carcinoma. Patient is scheduled for laparotomy and colon resection. The surgeon has requested a preoperative insertion of ureteral catheters. I discussed the urologic procedure with the patient and her daughter. The nature of this procedure namely cystoscopy and ureteral catheterization, has been explained to the patient. The risks, benefits, and alternatives have been explained as well. PLAN: For cystoscopy. Thank you for recommending the patient for urology consultation. Yamila Chaudhry MD cc: Xavier Miner Jr., MD; Christ Butt MD.
--- NOTE | 2017-09-22 01:36 | OP ---
PROCEDURE DATE: 09/19/2017 PREOPERATIVE DIAGNOSIS: Colon cancer. POSTOPERATIVE DIAGNOSES: Colon cancer, cystitis. PROCEDURE: Cystoscopy, insertion of bilateral ureteral stents, exam under anesthesia. OPERATING SURGEON: Yamila Chaudhry MD. PROCEDURE IN DETAIL: Anesthesia was applied by an anesthesiologist. Genitalia prepped and draped sterilely with the patient in lithotomy position. A 22-Libyan cystoscope sheath was introduced with an obturator. Urine was sent for bacteriologic examination. The urethra and bladder were inspected with 30-degree lens. FINDINGS: The urethral caliber was noted to be normal. There were no lesions within the urethra. The bladder demonstrated mild trabeculation. There was no bladder tumor. There was no bladder stone. There was no fistula. There was no diverticulum. The bladder contour was normal. 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 The ureteral orifices were normal in position and shape. Ureteral catheterization was performed first on the left side. The 6-Libyan open-ended catheter was inserted into the orifice with the aid of the 0.035 inch sensor guidewire. The guidewire and the catheter were advanced up to level of kidney. A similar ureteral catheterization was performed on the right side. The 6-Libyan ureteral catheter and sensor guidewire 0.035 inch in diameter were advanced into the right ureteral orifice and passed up to level of kidney. The guidewire was removed. There was clear drainage from each ureteral catheter. The cystoscope sheath removed. An 18-Libyan catheter was inserted. The ureteral catheters were secured to the catheter. Exam under anesthesia/bimanual examination was performed. There was a left-sided abdominopelvic mass. Mass was approximately 8-10 cm in size. Mass was mobile and firm without fixation or nodularity. The patient tolerated the urologic procedure without complication. The patient will have the remainder for her procedure as per the general surgery team. Yamila Chaudhry MD cc: Xavier Miner Jr., MD. Christ Butt MD
[2017-09-22] MEDS: Levothyroxine 100 MCG TAB PO SCH (06:08)
--- NOTE | 2017-09-22 06:58 | CP.PCM.PN ---
<Shima Hinds - Last Filed: 09/22/17 10:36> Subjective - Date & Time of Evaluation Date of Evaluation: 09/22/17 Time of Evaluation: 06:58 - Subjective Subjective: PGY2 GI Note for Dr. Perez Patient seen and examined at bedside. Nursing reports no acute events overnight. Patient complained of abdominal soreness and pain with palpation and movement. Tolerated liquid diet. Pain controlled with meds. Denied nausea and vomiting. Patient had a BM the day before that was soft, nonlemelanotic and nobloody. Denies fever, chills, headache, dizziness, chest pain, SOB, pain/ swelling in her legs bilaterally. Objective - Vital Signs/Intake and Output Vital Signs (last 24 hours): Temp Pulse Resp BP Pulse Ox 98.3 F 62 20 160/62 H 95 09/22/17 01:27 09/22/17 01:27 09/22/17 01:27 09/22/17 01:27 09/22/17 01:27 Intake and Output: 09/21/17 09/22/17 18:59 06:59 Intake Total 2060 1020 Output Total 568 700 Balance 1492 320 - Medications Medications: Current Medications Heparin Sodium (Porcine) (Heparin) 5,000 units SC Q8 [facility] Last Admin: 09/22/17 06:06 Dose: 5,000 units Hydromorphone HCl (Dilaudid) 0.5 mg IVP Q4H PRN PRN Reason: Pain, severe (8-10) Sodium Chloride (Sodium Chloride 0.9%) 1,000 mls @ 75 mls/hr IV .[id number] [facility] Last Admin: 09/21/17 07:50 Dose: 75 mls/hr BUPIVACAINE 0.125%/0.9% NACL (Bupivacaine-Ns 0.125% On-Q Apron Trimmer) 600 mls @ 4 mls/ hr IJ Q150H PRN PRN Reason: Pain, moderate (4-7) Insulin Human Regular (Novolin R) 0 unit SC Q6H [facility] PRN Reason: Protocol Last Admin: 09/21/17 17:17 Dose: Not Given Levothyroxine Sodium (Synthroid) 100 mcg PO DAILY@0630 [facility] Last Admin: 09/22/17 06:08 Dose: 100 mcg Losartan Potassium (Cozaar) 100 mg PO DAILY [facility] Last Admin: 09/19/17 10:00 Dose: Not Given Morphine Sulfate (Morphine) 4 mg IVP Q6H PRN PRN Reason: Pain, severe (8-10) Pantoprazole Sodium (Protonix Inj) 40 mg IVP DAILY [facility] Last Admin: 09/21/17 09:27 Dose: 40 mg - Labs Labs: 09/21/17 06:28 09/21/17 06:28 PT 12.2 SECONDS (9.7-12.2) 09/17/17 06:48 INR 1.1 09/17/17 06:48 APTT 32 SECONDS (21-34) 09/16/17 12:34 - Constitutional Appears: Non-toxic, No Acute Distress, Chronically Ill - Head Exam Head Exam: ATRAUMATIC, NORMOCEPHALIC - Eye Exam Eye Exam: EOMI, Normal appearance. absent: Conjunctival injection, Scleral icterus - ENT Exam ENT Exam: Mucous Membranes Moist - Neck Exam Neck Exam: Full ROM - Respiratory Exam Respiratory Exam: Clear to Ausculation Bilateral, NORMAL BREATHING PATTERN. absent: Accessory Muscle Use, Rales, Rhonchi, Wheezes, Respiratory Distress - Cardiovascular Exam Cardiovascular Exam: REGULAR RHYTHM, RRR, +S1, +S2. absent: Murmur - GI/Abdominal Exam GI & Abdominal Exam: Soft, Tenderness (diffuse to palpation), Normal Bowel Sounds. absent: Firm, Guarding, Rigid Additional comments: bandage c/d/i On-Q pump NOEMÍ in place - Extremities Exam Extremities Exam: Normal Inspection. absent: Pedal Edema - Neurological Exam Neurological Exam: Alert, Awake, Oriented x3 - Psychiatric Exam Psychiatric exam: Normal Affect, Normal Mood - Skin Skin Exam: Dry, Intact, Normal Color, Warm Assessment and Plan - Assessment and Plan (Free Text) Assessment: 82yo female PMHx HTN and hypothyroidism presented with rectal bleeding, abdominal pain, and weight loss. 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 Plan: - POD#3 (09/19) low anterior resection with end-to-end anastomosis - H pylori Gastritis with focal intestinal metaplasia confirmed on EGD 09/17/17 started patient on triple therapy: amoxicillin, clarithromycin, PPI - to be continued for 14 days - f/u surgical pathology - advanced to full liquid diet as per surgical team - supportive care: pain control, PT, OOB to chair and ambulate, IS use - recommend oncology consult - surgery on board GI Will sign off at this time Please reconsult as needed Discussed with Dr. Ana Hinsd PGY2 <Awilda Perez MD - Last Filed: 09/22/17 17:04> Objective - Vital Signs/Intake and Output Vital Signs (last 24 hours): Temp Pulse Resp BP Pulse Ox 99.2 F 77 20 172/81 H 98 09/22/17 15:30 09/22/17 15:30 09/22/17 15:30 09/22/17 15:30 09/22/17 15:30 Intake and Output: 09/22/17 09/22/17 06:59 18:59 Intake Total 1020 Output Total 700 610 Balance 320 -610 - Medications Medications: Current Medications Amoxicillin (Amoxil 500 Mg Cap) 1,000 mg PO Q12 [facility] Stop: 10/05/17 11:16 Last Admin: 09/22/17 11:12 Dose: 1,000 mg Clarithromycin (Biaxin Filmtab) 500 mg PO Q12H [facility] Stop: 10/05/17 11:16 Last Admin: 09/22/17 11:12 Dose: 500 mg Heparin Sodium (Porcine) (Heparin) 5,000 units SC Q8 [facility] Last Admin: 09/22/17 13:42 Dose: 5,000 units Sodium Chloride (Sodium Chloride 0.9%) 1,000 mls @ 75 mls/hr IV .[id number] [facility] Last Admin: 09/21/17 07:50 Dose: 75 mls/hr BUPIVACAINE 0.125%/0.9% NACL (Bupivacaine-Ns 0.125% On-Q Apron Trimmer) 600 mls @ 4 mls/ hr IJ Q150H PRN PRN Reason: Pain, moderate (4-7) Insulin Human Regular (Novolin R) 0 unit SC Q6H [facility] PRN Reason: Protocol Last Admin: 09/22/17 12:00 Dose: Not Given Levothyroxine Sodium (Synthroid) 100 mcg PO DAILY@0630 [facility] Last Admin: 09/22/17 06:08 Dose: 100 mcg Losartan Potassium (Cozaar) 100 mg PO DAILY [facility] Last Admin: 09/19/17 10:00 Dose: Not Given Oxycodone/Acetaminophen (Percocet 5/325 Mg Tab) 1 tab PO Q4H PRN PRN Reason: Pain, moderate (4-7) Stop: 09/25/17 09:13 Pantoprazole Sodium (Protonix Inj) 40 mg IVP DAILY [facility] Last Admin: 09/22/17 10:00 Dose: 40 mg Saccharomyces Boulardii (Florastor) 250 mg PO BID [facility] Last Admin: 09/22/17 11:11 Dose: 250 mg - Labs Labs: 09/22/17 09:42 09/22/17 09:42 PT 12.2 SECONDS (9.7-12.2) 09/17/17 06:48 INR 1.1 09/17/17 06:48 APTT 32 SECONDS (21-34) 09/16/17 12:34 Attending/Attestation - Attestation I have personally seen and examined this patient.: Yes I have fully participated in the care of the patient.: Yes I have reviewed all pertinent clinical information, including history, physical exam and plan: Yes Notes (Text): 09/22/17 17:01 This is 82 year old female with newly diagnosed rectal cancer s/p LAR with end to end anastomosis. H pylori positive. Will start H pylori Rx to complete 14 days treatment. Appreciate oncology and surgery evaluation. To follow with Dr Sommer upon discharge. Will sign off now. Thank you for letting us participate in the care of your patient
[2017-09-22] MEDS: (Novolin R) Insulin Human Regular 100 units/ml vial SC SCH ×4 (07:00→17:43)
[2017-09-22] MEDS ORDERED: Oxycodone/Acetaminophen 5/325 mg Tab PO PRN (09:12)
--- NOTE | 2017-09-22 09:15 | CP.PCM.PN ---
Subjective - Date & Time of Evaluation Date of Evaluation: 09/22/17 Time of Evaluation: 09:15 - Subjective Subjective: General Surgery: Dr Miner Pt S&E. She is POD#3 s/p open LAR. Pt doing very well. Minimal pain, well controlled. Tolerating CLD. Passing flatus and having bowel movements. Denies any N/V, F/C, SOB or chest pain. Making adequate urine. Objective - Vital Signs/Intake and Output Vital Signs (last 24 hours): Temp Pulse Resp BP Pulse Ox 98.3 F 76 20 156/83 H 97 09/22/17 07:59 09/22/17 07:59 09/22/17 07:59 09/22/17 07:59 09/22/17 07:59 Intake and Output: 09/22/17 09/22/17 06:59 18:59 Intake Total 1020 Output Total 700 450 Balance 320 -450 - Medications Medications: Current Medications Heparin Sodium (Porcine) (Heparin) 5,000 units SC Q8 [facility] Last Admin: 09/22/17 06:06 Dose: 5,000 units Sodium Chloride (Sodium Chloride 0.9%) 1,000 mls @ 75 mls/hr IV .[id number] [facility] Last Admin: 09/21/17 07:50 Dose: 75 mls/hr BUPIVACAINE 0.125%/0.9% NACL (Bupivacaine-Ns 0.125% On-Q Residential Child Care Counselor) 600 mls @ 4 mls/ hr IJ Q150H PRN PRN Reason: Pain, moderate (4-7) Insulin Human Regular (Novolin R) 0 unit SC Q6H [facility] PRN Reason: Protocol Last Admin: 09/22/17 07:00 Dose: Not Given Levothyroxine Sodium (Synthroid) 100 mcg PO DAILY@0630 [facility] Last Admin: 09/22/17 06:08 Dose: 100 mcg Losartan Potassium (Cozaar) 100 mg PO DAILY [facility] Last Admin: 09/19/17 10:00 Dose: Not Given Oxycodone/Acetaminophen (Percocet 5/325 Mg Tab) 1 tab PO Q4H PRN PRN Reason: Pain, moderate (4-7) Stop: 09/25/17 09:13 Pantoprazole Sodium (Protonix Inj) 40 mg IVP DAILY [facility] Last Admin: 09/21/17 09:27 Dose: 40 mg - Labs Labs: 09/21/17 06:28 09/21/17 06:28 PT 12.2 SECONDS (9.7-12.2) 09/17/17 06:48 INR 1.1 09/17/17 06:48 APTT 32 SECONDS (21-34) 09/16/17 12:34 - Constitutional Appears: Non-toxic, No Acute Distress - ENT Exam ENT Exam: Mucous Membranes Moist - Respiratory Exam Respiratory Exam: absent: Accessory Muscle Use, Respiratory Distress - Cardiovascular Exam Cardiovascular Exam: REGULAR RHYTHM - GI/Abdominal Exam GI & Abdominal Exam: Soft. absent: Distended, Firm, Guarding, Tenderness Additional comments: incisions c/d/i, drain w/ 25 cc serosanguinous - Neurological Exam Neurological Exam: Alert, Awake, Oriented x3 - Psychiatric Exam Psychiatric exam: Normal Affect, Normal Mood - Skin Skin Exam: Normal Color, Warm Assessment and Plan - Assessment and Plan (Free Text) Assessment: 82F POD#3 s/p LAR Plan: d/c mason adv to FLD will trial on PO Percocet for pain OOB and ambulate today d/w Dr Isidra Grimaldo, PGY3
[2017-09-22 09:46] LABS: HEMATOCRIT 28.4 % (34.0-47.0); MEAN CELL VOLUME 88.9 fL (81.0-99.0); MEAN CORPUSCULAR HEMOGLOBIN 30.5 pg (27.0-31.0); MEAN CORPUSCULAR HGB CONC 34.3 g/dL (33.0-37.0); MEAN PLATELET VOLUME 6.8 fL (7.2-11.7); RED CELL DISTRIBUTION WIDTH 16.3 % (11.5-14.5); WHITE BLOOD COUNT 9.9 K/uL (4.8-10.8)
[2017-09-22 10:04] LABS: BLOOD UREA NITROGEN 12 mg/dL (7-17); CALCIUM 6.8 mg/dl (8.6-10.4); CARBON DIOXIDE 27 mmol/L (22-30); CHLORIDE 102 mmol/L (98-107); GFR AFRICAN-AMERICAN > 60; GLUCOSE,RANDOM 92 mg/dL (65-105); POTASSIUM 3.7 mmol/L (3.6-5.2); SODIUM 132 mmol/L (132-148)
[2017-09-22] MEDS: Saccharomyces Boulardi 250 mg Cap PO SCH ×2 (11:11→18:11)
--- NOTE | 2017-09-22 11:35 | PCM.URO ---
Urology Progress Note - Objective Lab Results Last 24 Hours: Laboratory Results - last 24 hr 09/21/17 09/21/17 09/21/17 11:48 17:19 17:22 WBC RBC Hgb Hct MCV MCH MCHC RDW Plt Count MPV Sodium Potassium Chloride Carbon Dioxide Anion Gap BUN Creatinine Est GFR ( Amer) Est GFR (Non-Af Amer) POC Glucose (mg/dL) 80 61 L 68 Random Glucose Calcium 09/21/17 09/22/17 09/22/17 17:53 04:33 06:40 WBC RBC Hgb Hct MCV MCH MCHC RDW Plt Count MPV Sodium Potassium Chloride Carbon Dioxide Anion Gap BUN Creatinine Est GFR ( Amer) Est GFR (Non-Af Amer) POC Glucose (mg/dL) 111 H 89 88 Random Glucose Calcium 09/22/17 09/22/17 09:42 09:42 WBC 9.9 RBC 3.19 L Hgb 9.7 L Hct 28.4 L MCV 88.9 MCH 30.5 MCHC 34.3 RDW 16.3 H Plt Count 239 MPV 6.8 L Sodium 132 Potassium 3.7 Chloride 102 Carbon Dioxide 27 Anion Gap 7 L BUN 12 Creatinine 1.0 Est GFR ( Amer) > 60 Est GFR (Non-Af Amer) 53 POC Glucose (mg/dL) Random Glucose 92 Calcium 6.8 L Intake & Output: Intake & Output 09/21/17 09/22/17 09/22/17 18:59 06:59 18:59 Intake Total 2060 1020 Output Total 568 700 450 Balance 1492 320 -450 Intake: IV 900 Intake, IV Amount 1460 Right Hand 900 Right Hand Y Port 560 Oral 600 120 Output: Drainage 25 Right Abdomen 25 Urine 543 700 450 Urethral (Contreras) 543 700 450 Other: # Bowel Movements 1 Vital Signs: Vital Signs - 24 hr 09/21/17 09/21/17 09/21/17 12:00 13:00 14:00 Temperature 97.2 F L Pulse Rate 66 65 67 Respiratory 16 16 14 Rate Blood Pressure 145/71 157/67 H 134/59 L O2 Sat by Pulse 99 99 96 Oximetry 09/21/17 09/21/17 09/21/17 15:00 16:00 17:00 Temperature 97.7 F Pulse Rate 66 68 63 Respiratory 15 16 14 Rate Blood Pressure 142/80 168/71 H 155/63 H O2 Sat by Pulse 97 96 98 Oximetry 09/21/17 09/21/17 09/21/17 18:00 19:10 21:14 Temperature 98.4 F 99.4 F Pulse Rate 66 69 72 Respiratory 16 20 20 Rate Blood Pressure 149/69 163/72 H 158/78 H O2 Sat by Pulse 96 96 97 Oximetry 09/22/17 09/22/17 01:27 07:59 Temperature 98.3 F 98.3 F Pulse Rate 62 76 Respiratory 20 20 Rate Blood Pressure 160/62 H 156/83 H O2 Sat by Pulse 95 97 Oximetry - Date & Time of Note Date: 09/22/17 Time: 11:35
[2017-09-22] MEDS: Sodium Chloride 0.9% 1,000 ML IV SCH (21:52)
--- NOTE | 2017-09-22 23:15 | CP.PCM.PN ---
Subjective - Date & Time of Evaluation Date of Evaluation: 09/22/17 Time of Evaluation: 19:00 - Subjective Subjective: pt is seen and evaluated by me today, is improving, afbeile, out of ICU, post op , no distress Objective - Vital Signs/Intake and Output Vital Signs (last 24 hours): Temp Pulse Resp BP Pulse Ox 99.2 F 77 20 172/81 H 98 09/22/17 15:30 09/22/17 15:30 09/22/17 15:30 09/22/17 15:30 09/22/17 15:30 Intake and Output: 09/22/17 09/23/17 18:59 06:59 Output Total 610 Balance -610 - Medications Medications: Current Medications Amoxicillin (Amoxil 500 Mg Cap) 1,000 mg PO Q12 [facility] Stop: 10/05/17 11:16 Last Admin: 09/22/17 21:53 Dose: 1,000 mg Clarithromycin (Biaxin Filmtab) 500 mg PO Q12H [facility] Stop: 10/05/17 11:16 Last Admin: 09/22/17 11:12 Dose: 500 mg Heparin Sodium (Porcine) (Heparin) 5,000 units SC Q8 [facility] Last Admin: 09/22/17 21:54 Dose: 5,000 units Sodium Chloride (Sodium Chloride 0.9%) 1,000 mls @ 75 mls/hr IV .[id number] [facility] Last Admin: 09/22/17 21:52 Dose: 75 mls/hr BUPIVACAINE 0.125%/0.9% NACL (Bupivacaine-Ns 0.125% On-Q Sales Account Specialist) 600 mls @ 4 mls/ hr IJ Q150H PRN PRN Reason: Pain, moderate (4-7) Insulin Human Regular (Novolin R) 0 unit SC Q6H [facility] PRN Reason: Protocol Last Admin: 09/22/17 17:43 Dose: Not Given Levothyroxine Sodium (Synthroid) 100 mcg PO DAILY@0630 [facility] Last Admin: 09/22/17 06:08 Dose: 100 mcg Losartan Potassium (Cozaar) 100 mg PO DAILY [facility] Last Admin: 09/19/17 10:00 Dose: Not Given Oxycodone/Acetaminophen (Percocet 5/325 Mg Tab) 1 tab PO Q4H PRN PRN Reason: Pain, moderate (4-7) Stop: 09/25/17 09:13 Pantoprazole Sodium (Protonix Inj) 40 mg IVP DAILY [facility] Last Admin: 09/22/17 10:00 Dose: 40 mg Saccharomyces Boulardii (Florastor) 250 mg PO BID [facility] Last Admin: 09/22/17 18:11 Dose: 250 mg - Labs Labs: 09/22/17 09:42 09/22/17 09:42 PT 12.2 SECONDS (9.7-12.2) 09/17/17 06:48 INR 1.1 09/17/17 06:48 APTT 32 SECONDS (21-34) 09/16/17 12:34 - Constitutional Appears: No Acute Distress - Head Exam Head Exam: ATRAUMATIC, NORMAL INSPECTION, NORMOCEPHALIC - Eye Exam Eye Exam: EOMI, Normal appearance, PERRL Pupil Exam: NORMAL ACCOMODATION, PERRL - Respiratory Exam Respiratory Exam: Clear to Ausculation Bilateral, NORMAL BREATHING PATTERN - Cardiovascular Exam Cardiovascular Exam: REGULAR RHYTHM, +S1, +S2. absent: Murmur - GI/Abdominal Exam GI & Abdominal Exam: Soft, Normal Bowel Sounds. absent: Tenderness Assessment and Plan (1) Abdominal pain Status: Acute (2) Gastrointestinal hemorrhage Status: Acute (3) Mass of colon Status: Acute
[2017-09-23] MEDS: (Novolin R) Insulin Human Regular 100 units/ml vial SC SCH ×5 (00:18→23:47)
[2017-09-23] MEDS: Levothyroxine 100 MCG TAB PO SCH (06:10)
--- NOTE | 2017-09-23 07:02 | CP.PCM.CON ---
History of Present Illness - History of Present Illness History of Present Illness: patient seen. full consult dictated colon cancer . await full path will discuss adjuvant chemo Rx. Treat for Hpylori infection. Past Patient History - Past Medical History & Family History Past Medical History?: Yes - Past Social History Smoking Status: Former Smoker - CARDIAC Hx Hypertension: Yes - PULMONARY Hx Respiratory Disorders: No - NEUROLOGICAL Hx Neurological Disorder: No - HEENT Hx HEENT Problems: No - RENAL Hx Chronic Kidney Disease: No - ENDOCRINE/METABOLIC Hx Hypothyroidism: Yes - HEMATOLOGICAL/ONCOLOGICAL Hx Blood Disorders: No - INTEGUMENTARY Hx Dermatological Problems: No - MUSCULOSKELETAL/RHEUMATOLOGICAL Hx Falls: Yes Hx Fractures: Yes (RIGHT FOOT-NO SURGERY) - GASTROINTESTINAL Hx Gastrointestinal Disorders: No - GENITOURINARY/GYNECOLOGICAL Hx Genitourinary Disorders: No - PSYCHIATRIC Hx Psychophysiologic Disorder: No Hx Substance Use: No - SURGICAL HISTORY Hx Surgeries: Yes Other/Comment: HX: SOME TYPE OF THYROID SURGERY- PT. NOT SURE IF TOTAL. - ANESTHESIA Hx Anesthesia: Yes Hx Anesthesia Reactions: No Hx Malignant Hyperthermia: No Has any member of the family had a problem w/ anesthesia?: No Meds Allergies/Adverse Reactions: Allergies Allergy/AdvReac Type Severity Reaction Status Date / Time No Known Allergies Allergy Verified 09/16/17 12:02 - Medications Medications: Current Medications Amoxicillin (Amoxil 500 Mg Cap) 1,000 mg PO Q12 [facility] Stop: 10/05/17 11:16 Last Admin: 09/22/17 21:53 Dose: 1,000 mg Clarithromycin (Biaxin Filmtab) 500 mg PO Q12H [facility] Stop: 10/05/17 11:16 Last Admin: 09/23/17 00:03 Dose: 500 mg Heparin Sodium (Porcine) (Heparin) 5,000 units SC Q8 [facility] Last Admin: 09/23/17 06:10 Dose: 5,000 units Sodium Chloride (Sodium Chloride 0.9%) 1,000 mls @ 75 mls/hr IV .[id number] [facility] Last Admin: 09/22/17 21:52 Dose: 75 mls/hr BUPIVACAINE 0.125%/0.9% NACL (Bupivacaine-Ns 0.125% On-Q Business Machine Operator) 600 mls @ 4 mls/ hr IJ Q150H PRN PRN Reason: Pain, moderate (4-7) Insulin Human Regular (Novolin R) 0 unit SC Q6H [facility] PRN Reason: Protocol Last Admin: 09/23/17 06:46 Dose: Not Given Levothyroxine Sodium (Synthroid) 100 mcg PO DAILY@0630 [facility] Last Admin: 09/23/17 06:10 Dose: 100 mcg Losartan Potassium (Cozaar) 100 mg PO DAILY [facility] Last Admin: 09/19/17 10:00 Dose: Not Given Oxycodone/Acetaminophen (Percocet 5/325 Mg Tab) 1 tab PO Q4H PRN PRN Reason: Pain, moderate (4-7) Stop: 09/25/17 09:13 Pantoprazole Sodium (Protonix Inj) 40 mg IVP DAILY [facility] Last Admin: 09/22/17 10:00 Dose: 40 mg Saccharomyces Boulardii (Florastor) 250 mg PO BID [facility] Last Admin: 09/22/17 18:11 Dose: 250 mg Results - Vital Signs Recent Vital Signs: Last Vital Signs Temp 98.4 F 09/22/17 23:45 Pulse 83 09/22/17 23:45 Resp 20 09/22/17 23:45 BP 169/84 H 09/22/17 23:45 Pulse Ox 97 09/22/17 23:45 - Labs Result Diagrams: 09/22/17 09:42 09/22/17 09:42 Labs: Laboratory Results - last 24 hr 09/22/17 09/22/17 09/22/17 09:42 09:42 11:32 WBC 9.9 RBC 3.19 L Hgb 9.7 L Hct 28.4 L MCV 88.9 MCH 30.5 MCHC 34.3 RDW 16.3 H Plt Count 239 MPV 6.8 L Sodium 132 Potassium 3.7 Chloride 102 Carbon Dioxide 27 Anion Gap 7 L BUN 12 Creatinine 1.0 Est GFR ( Amer) > 60 Est GFR (Non-Af Amer) 53 POC Glucose (mg/dL) 106 Random Glucose 92 Calcium 6.8 L 09/22/17 09/22/17 09/23/17 17:25 21:08 06:35 WBC RBC Hgb Hct MCV MCH MCHC RDW Plt Count MPV Sodium Potassium Chloride Carbon Dioxide Anion Gap BUN Creatinine Est GFR ( Amer) Est GFR (Non-Af Amer) POC Glucose (mg/dL) 86 112 H 85 Random Glucose Calcium
--- NOTE | 2017-09-23 07:41 | CP.PCM.PN ---
Subjective - Date & Time of Evaluation Date of Evaluation: 09/23/17 Time of Evaluation: 07:38 - Subjective Subjective: General Surgery: Dr Miner Pt S&E. NAEO. Resting comfortably. OnQ removed at bedside. Pain is well controlled with percocet. Continues to have bowel movements. Denies any N/v, F /C, SOB or chest pain. Is OOB and ambulating with a walker. Objective - Vital Signs/Intake and Output Vital Signs (last 24 hours): Temp Pulse Resp BP Pulse Ox 98.4 F 83 20 169/84 H 97 09/22/17 23:45 09/22/17 23:45 09/22/17 23:45 09/22/17 23:45 09/22/17 23:45 Intake and Output: 09/23/17 09/23/17 06:59 18:59 Intake Total 1540 Output Total 120 Balance 1420 - Medications Medications: Current Medications Amoxicillin (Amoxil 500 Mg Cap) 1,000 mg PO Q12 [facility] Stop: 10/05/17 11:16 Last Admin: 09/22/17 21:53 Dose: 1,000 mg Clarithromycin (Biaxin Filmtab) 500 mg PO Q12H [facility] Stop: 10/05/17 11:16 Last Admin: 09/23/17 00:03 Dose: 500 mg Heparin Sodium (Porcine) (Heparin) 5,000 units SC Q8 [facility] Last Admin: 09/23/17 06:10 Dose: 5,000 units BUPIVACAINE 0.125%/0.9% NACL (Bupivacaine-Ns 0.125% On-Q Splitter Head) 600 mls @ 4 mls/ hr IJ Q150H PRN PRN Reason: Pain, moderate (4-7) Insulin Human Regular (Novolin R) 0 unit SC Q6H [facility] PRN Reason: Protocol Last Admin: 09/23/17 06:46 Dose: Not Given Levothyroxine Sodium (Synthroid) 100 mcg PO DAILY@0630 [facility] Last Admin: 09/23/17 06:10 Dose: 100 mcg Losartan Potassium (Cozaar) 100 mg PO DAILY [facility] Last Admin: 09/19/17 10:00 Dose: Not Given Oxycodone/Acetaminophen (Percocet 5/325 Mg Tab) 1 tab PO Q4H PRN PRN Reason: Pain, moderate (4-7) Stop: 09/25/17 09:13 Pantoprazole Sodium (Protonix Inj) 40 mg IVP DAILY [facility] Last Admin: 09/22/17 10:00 Dose: 40 mg Saccharomyces Boulardii (Florastor) 250 mg PO BID [facility] Last Admin: 09/22/17 18:11 Dose: 250 mg - Labs Labs: 09/22/17 09:42 09/22/17 09:42 PT 12.2 SECONDS (9.7-12.2) 09/17/17 06:48 INR 1.1 09/17/17 06:48 APTT 32 SECONDS (21-34) 09/16/17 12:34 - Constitutional Appears: Non-toxic, No Acute Distress - ENT Exam ENT Exam: Normal Exam - Respiratory Exam Respiratory Exam: absent: Accessory Muscle Use, Respiratory Distress - Cardiovascular Exam Cardiovascular Exam: REGULAR RHYTHM. absent: Tachycardia - GI/Abdominal Exam GI & Abdominal Exam: Soft. absent: Distended, Firm, Guarding, Tenderness Additional comments: incisions c/d/i - Neurological Exam Neurological Exam: Alert, Awake - Psychiatric Exam Psychiatric exam: Normal Affect, Normal Mood - Skin Skin Exam: Normal Color, Warm Assessment and Plan - Assessment and Plan (Free Text) Assessment: 82F POD # 4 s/p open LAR for adenocarcinoma Plan: adv to soft diet d/c IV fluids cont percocet for pain OnQ removed plan for discharge tomorrow d/w Dr Isidra Grimaldo, PGY3
[2017-09-23] MEDS: Saccharomyces Boulardi 250 mg Cap PO SCH ×2 (09:30→17:27)
--- NOTE | 2017-09-23 13:10 | CP.PCM.PN ---
Subjective - Date & Time of Evaluation Date of Evaluation: 09/23/17 Time of Evaluation: 21:00 - Subjective Subjective: Pt S&E. NAEO. Resting comfortably. OnQ removed at bedside. Pain is well controlled with percocet. Continues to have bowel movements. Denies any N/v, F /C, SOB or chest pain. Is OOB and ambulating with a walker. Objective - Vital Signs/Intake and Output Vital Signs (last 24 hours): Temp Pulse Resp BP Pulse Ox 98.5 F 78 20 157/87 H 99 09/23/17 07:20 09/23/17 07:20 09/23/17 07:20 09/23/17 07:20 09/23/17 07:20 Intake and Output: 09/23/17 09/23/17 06:59 18:59 Intake Total 1540 Output Total 120 Balance 1420 - Medications Medications: Current Medications Amoxicillin (Amoxil 500 Mg Cap) 1,000 mg PO Q12 [facility] Stop: 10/05/17 11:16 Last Admin: 09/23/17 09:30 Dose: 1,000 mg Clarithromycin (Biaxin Filmtab) 500 mg PO Q12H [facility] Stop: 10/05/17 11:16 Last Admin: 09/23/17 10:50 Dose: 500 mg Heparin Sodium (Porcine) (Heparin) 5,000 units SC Q8 [facility] Last Admin: 09/23/17 13:08 Dose: 5,000 units BUPIVACAINE 0.125%/0.9% NACL (Bupivacaine-Ns 0.125% On-Q Student Admissions Clerk) 600 mls @ 4 mls/ hr IJ Q150H PRN PRN Reason: Pain, moderate (4-7) Insulin Human Regular (Novolin R) 0 unit SC Q6H [facility] PRN Reason: Protocol Last Admin: 09/23/17 11:55 Dose: Not Given Levothyroxine Sodium (Synthroid) 100 mcg PO DAILY@0630 [facility] Last Admin: 09/23/17 06:10 Dose: 100 mcg Losartan Potassium (Cozaar) 100 mg PO DAILY [facility] Last Admin: 09/19/17 10:00 Dose: Not Given Oxycodone/Acetaminophen (Percocet 5/325 Mg Tab) 1 tab PO Q4H PRN PRN Reason: Pain, moderate (4-7) Stop: 09/25/17 09:13 Pantoprazole Sodium (Protonix Inj) 40 mg IVP DAILY [facility] Last Admin: 09/23/17 09:30 Dose: 40 mg Saccharomyces Boulardii (Florastor) 250 mg PO BID [facility] Last Admin: 09/23/17 09:30 Dose: 250 mg - Labs Labs: 09/22/17 09:42 09/22/17 09:42 PT 12.2 SECONDS (9.7-12.2) 09/17/17 06:48 INR 1.1 09/17/17 06:48 APTT 32 SECONDS (21-34) 09/16/17 12:34 Assessment and Plan (1) Abdominal pain Status: Acute (2) Gastrointestinal hemorrhage Status: Acute (3) Mass of colon Status: Acute
[2017-09-24] MEDS: Levothyroxine 100 MCG TAB PO SCH (05:31)
[2017-09-24] MEDS: (Novolin R) Insulin Human Regular 100 units/ml vial SC SCH ×3 (06:05→17:36)
--- NOTE | 2017-09-24 10:12 | VASCLAB ---
PROCEDURE: Lower Extremity Venous Duplex Exam. HISTORY: LE swelling s/p surgery PRIORS: None. TECHNIQUE: Bilateral common femoral, femoral, popliteal and posterior tibial, peroneal and great saphenous veins were evaluated. Flow was assessed with color Doppler, compressibility, assessment of phasic flow and augmentation response. Report prepared by PAWAN Morelos, RVT FINDINGS: RIGHT: 1. Common Femoral Vein: 1.1. Compressibility - Fully compressible: Thrombus - None : Flow - Phasic: Augmentation -Normal: Reflux - None. 2. Femoral Vein: 2.1. Compressibility - Fully compressible: Thrombus - None : Flow - Phasic: Augmentation -Normal: Reflux - None. 3. Popliteal Vein: 3.1. Compressibility - Fully compressible: Thrombus - None : Flow - Phasic: Augmentation -Normal: Reflux - None. 4. Posterior Tibial Vein: 4.1. Compressibility - Fully compressible: Thrombus - None: Flow - Phasic: Augmentation -Normal: Reflux - None. 5. Peroneal Vein: 5.1. Compressibility - Partial: Thrombus - Acute: Flow - Reduced : Augmentation -None: Reflux - None. 6. Great Saphenous Vein: 6.1. Compressibility - Fully compressible: Thrombus - None: Flow - Phasic: Augmentation - Normal: Reflux - None. LEFT: 1. Common Femoral Vein: 1.1. Compressibility - Fully compressible: Thrombus - None: Flow - Phasic: Augmentation -Normal: Reflux - None. 2. Femoral Vein: 2.1. Compressibility - Fully compressible: Thrombus - None: Flow - Phasic: Augmentation -Normal: Reflux - None. 3. Popliteal Vein: 3.1. Compressibility - Fully compressible: Thrombus - None : Flow - Phasic: Augmentation -Normal: Reflux - None. 4. Posterior Tibial Vein: 4.1. Compressibility - Fully compressible: Thrombus - None: Flow - Phasic: Augmentation -Normal: Reflux - None. 5. Peroneal Vein: 5.1. Compressibility - Fully compressible: Thrombus - None: Flow - Phasic: Augmentation -Normal: Reflux - None. 6. Great Saphenous Vein: 6.1. Compressibility - Fully compressible: Thrombus - None: Flow - Phasic: Augmentation - Normal: Reflux - None. OTHER FINDINGS: Anechoic, avascular structure in the left popliteal fossa measuring 2.7 x 1.2 cm most compatible with a Grimes's cyst. IMPRESSION: Right: Acute thrombosis of the right peroneal vein with severe reduction of the venous return. Left: No evidence of deep or superficial vein thrombosis of the left lower extremity. Normal valve function noted of the left side. GARRET Wong notified about the findings.
[2017-09-24] MEDS: Pantoprazole 40 mg EC Tab PO SCH (10:58)
[2017-09-24] MEDS: Saccharomyces Boulardi 250 mg Cap PO SCH ×2 (10:59→17:37)
[2017-09-24] MEDS: Enoxaparin 60 mg Syringe SC SCH ×2 (11:00→22:03)
[2017-09-24 11:44] LABS: BASO # 0.1 K/uL (0.0-0.2); BASO % 0.7 % (0.0-2.0); EOS # 0.2 K/uL (0.0-0.7); EOS % 2.3 % (0.0-4.0); HEMATOCRIT 30.9 % (34.0-47.0); LYMPH # 1.5 K/uL (1.0-4.3); LYMPH % 17.5 % (20.0-40.0); MEAN CELL VOLUME 89.6 fL (81.0-99.0); MEAN CORPUSCULAR HEMOGLOBIN 31.1 pg (27.0-31.0); MEAN CORPUSCULAR HGB CONC 34.7 g/dL (33.0-37.0); MEAN PLATELET VOLUME 7.4 fL (7.2-11.7); MONO # 0.7 K/uL (0.0-0.8); MONO % 7.5 % (0.0-10.0); WHITE BLOOD COUNT 8.8 K/uL (4.8-10.8)
--- NOTE | 2017-09-24 11:59 | CP.PCM.PN ---
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 , denies any chest pain, sob, , N/V/D, tolerating diet, c/o sore to the surgical site - abdomen, dressing intact duplex scan - R LE positive on levenox therapeutic will add coumadin today and repeat PPT/INR IN am Objective - Vital Signs/Intake and Output Vital Signs (last 24 hours): Temp Pulse Resp BP Pulse Ox 98.6 F 69 20 147/81 98 09/24/17 07:20 09/24/17 07:20 09/24/17 07:20 09/24/17 07:20 09/24/17 07:20 Intake and Output: 09/24/17 09/24/17 06:59 18:59 Output Total 40 Balance -40 - Medications Medications: Current Medications Amoxicillin (Amoxil 500 Mg Cap) 1,000 mg PO Q12 [facility] Stop: 10/05/17 11:16 Last Admin: 09/24/17 10:58 Dose: 1,000 mg Clarithromycin (Biaxin Filmtab) 500 mg PO Q12H [facility] Stop: 10/05/17 11:16 Last Admin: 09/24/17 10:59 Dose: 500 mg Enoxaparin Sodium (Lovenox) 60 mg SC Q12 [facility] Last Admin: 09/24/17 11:00 Dose: 60 mg BUPIVACAINE 0.125%/0.9% NACL (Bupivacaine-Ns 0.125% On-Q Gear Changer) 600 mls @ 4 mls/ hr IJ Q150H PRN PRN Reason: Pain, moderate (4-7) Insulin Human Regular (Novolin R) 0 unit SC Q6H [facility] PRN Reason: Protocol Last Admin: 09/24/17 11:38 Dose: Not Given Levothyroxine Sodium (Synthroid) 100 mcg PO DAILY@0630 [facility] Last Admin: 09/24/17 05:31 Dose: 100 mcg Losartan Potassium (Cozaar) 100 mg PO DAILY [facility] Last Admin: 09/19/17 10:00 Dose: Not Given Oxycodone/Acetaminophen (Percocet 5/325 Mg Tab) 1 tab PO Q4H PRN PRN Reason: Pain, moderate (4-7) Stop: 09/25/17 09:13 Pantoprazole Sodium (Protonix Ec Tab) 40 mg PO DAILY [facility] Last Admin: 09/24/17 10:58 Dose: 40 mg Saccharomyces Boulardii (Florastor) 250 mg PO BID [facility] Last Admin: 09/24/17 10:59 Dose: 250 mg Warfarin Sodium (Coumadin) 10 mg PO 1800 [facility] Stop: 09/24/17 18:01 - Labs Labs: 09/24/17 10:45 09/22/17 09:42 PT 12.2 SECONDS (9.7-12.2) 09/17/17 06:48 INR 1.1 09/17/17 06:48 APTT 32 SECONDS (21-34) 09/16/17 12:34 Assessment and Plan - Assessment and Plan (Free Text) Assessment: A/P venous duplex scan -+ for DVT R d/w Dr. Butt, continue lovenox and bridge with coumadin will give 10 mg today and repeat labs in am
[2017-09-24 13:37] LABS: CALCIUM 7.5 mg/dl (8.6-10.4); POTASSIUM 3.4 mmol/L (3.6-5.2)
[2017-09-24 14:10] LABS: INR 1.1
[2017-09-24] MEDS ORDERED: Potassium Chloride 20 mEq ER Tab PO ONE (14:30)
--- NOTE | 2017-09-24 22:36 | CP.PCM.PN ---
Subjective - Date & Time of Evaluation Date of Evaluation: 09/24/17 Time of Evaluation: 20:00 - Subjective Subjective: patient seen today , denies any chest pain, sob, , N/V/D, tolerating diet, c/o sore to the surgical site - abdomen, dressing intact duplex scan - R LE positive on levenox therapeutic will add coumadin today and repeat PPT/INR IN am Objective - Vital Signs/Intake and Output Vital Signs (last 24 hours): Temp Pulse Resp BP Pulse Ox 98.2 F 81 20 142/78 98 09/24/17 16:00 09/24/17 16:00 09/24/17 16:00 09/24/17 16:00 09/24/17 07:20 - Medications Medications: Current Medications Amoxicillin (Amoxil 500 Mg Cap) 1,000 mg PO Q12 [facility] Stop: 10/05/17 11:16 Last Admin: 09/24/17 22:03 Dose: 1,000 mg Enoxaparin Sodium (Lovenox) 60 mg SC Q12 [facility] Last Admin: 09/24/17 22:03 Dose: 60 mg BUPIVACAINE 0.125%/0.9% NACL (Bupivacaine-Ns 0.125% On-Q Personal Companion) 600 mls @ 4 mls/ hr IJ Q150H PRN PRN Reason: Pain, moderate (4-7) Insulin Human Regular (Novolin R) 0 unit SC Q6H [facility] PRN Reason: Protocol Last Admin: 09/24/17 17:36 Dose: Not Given Levothyroxine Sodium (Synthroid) 100 mcg PO DAILY@0630 [facility] Last Admin: 09/24/17 05:31 Dose: 100 mcg Losartan Potassium (Cozaar) 100 mg PO DAILY [facility] Last Admin: 09/19/17 10:00 Dose: Not Given Oxycodone/Acetaminophen (Percocet 5/325 Mg Tab) 1 tab PO Q4H PRN PRN Reason: Pain, moderate (4-7) Stop: 09/25/17 09:13 Pantoprazole Sodium (Protonix Ec Tab) 40 mg PO DAILY [facility] Last Admin: 09/24/17 10:58 Dose: 40 mg Saccharomyces Boulardii (Florastor) 250 mg PO BID [facility] Last Admin: 09/24/17 17:37 Dose: 250 mg - Labs Labs: 09/24/17 10:45 09/24/17 10:45 PT 12.0 SECONDS (9.7-12.2) 09/24/17 13:55 INR 1.1 09/24/17 13:55 APTT 40 SECONDS (21-34) H 09/24/17 13:55 Assessment and Plan (1) Abdominal pain Status: Acute (2) Gastrointestinal hemorrhage Status: Acute (3) Mass of colon Status: Acute
[2017-09-25] MEDS: (Novolin R) Insulin Human Regular 100 units/ml vial SC SCH ×4 (00:28→17:13)
[2017-09-25] MEDS: Levothyroxine 100 MCG TAB PO SCH (06:41)
[2017-09-25 07:08] LABS: INR 1.2
--- NOTE | 2017-09-25 09:22 | CP.PCM.PN ---
Subjective - Date & Time of Evaluation Date of Evaluation: 09/25/17 Time of Evaluation: 09:19 - Subjective Subjective: Gen Sx: Dr Miner Pt S&E. NAEO. Resting comfortably. No complaints. Started on warfarin 10mg yesterday, INR only 1.2 today. Tolerating diet, having BMs, ambulating. Objective - Vital Signs/Intake and Output Vital Signs (last 24 hours): Temp Pulse Resp BP Pulse Ox 98.8 F 83 20 152/79 H 98 09/25/17 07:35 09/25/17 07:35 09/25/17 07:35 09/25/17 07:35 09/25/17 07:35 Intake and Output: 09/25/17 09/25/17 06:59 18:59 Intake Total 320 Balance 320 - Medications Medications: Current Medications Amoxicillin (Amoxil 500 Mg Cap) 1,000 mg PO Q12 [facility] Stop: 10/05/17 11:16 Last Admin: 09/24/17 22:03 Dose: 1,000 mg Enoxaparin Sodium (Lovenox) 60 mg SC Q12 [facility] Last Admin: 09/24/17 22:03 Dose: 60 mg BUPIVACAINE 0.125%/0.9% NACL (Bupivacaine-Ns 0.125% On-Q Rope Tier) 600 mls @ 4 mls/ hr IJ Q150H PRN PRN Reason: Pain, moderate (4-7) Insulin Human Regular (Novolin R) 0 unit SC Q6H [facility] PRN Reason: Protocol Last Admin: 09/25/17 06:51 Dose: Not Given Levothyroxine Sodium (Synthroid) 100 mcg PO DAILY@0630 [facility] Last Admin: 09/25/17 06:41 Dose: 100 mcg Losartan Potassium (Cozaar) 100 mg PO DAILY [facility] Last Admin: 09/19/17 10:00 Dose: Not Given Pantoprazole Sodium (Protonix Ec Tab) 40 mg PO DAILY [facility] Last Admin: 09/24/17 10:58 Dose: 40 mg Saccharomyces Boulardii (Florastor) 250 mg PO BID [facility] Last Admin: 09/24/17 17:37 Dose: 250 mg - Labs Labs: 09/24/17 10:45 09/24/17 10:45 PT 12.9 SECONDS (9.7-12.2) H 12/21/17 06:12 INR 1.2 09/25/17 06:12 APTT 40 SECONDS (21-34) H 09/24/17 13:55 - Constitutional Appears: Non-toxic, No Acute Distress - ENT Exam ENT Exam: Mucous Membranes Moist - Respiratory Exam Respiratory Exam: absent: Accessory Muscle Use, Respiratory Distress - Cardiovascular Exam Cardiovascular Exam: REGULAR RHYTHM - GI/Abdominal Exam GI & Abdominal Exam: Soft. absent: Distended, Tenderness - Extremities Exam Extremities Exam: Pedal Edema Assessment and Plan - Assessment and Plan (Free Text) Assessment: 82F POD#6 s/p LAR. 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
[2017-09-25] MEDS: Pantoprazole 40 mg EC Tab PO SCH (10:21)
[2017-09-25] MEDS: Saccharomyces Boulardi 250 mg Cap PO SCH ×2 (10:21→17:32)
[2017-09-25] MEDS: Enoxaparin 60 mg Syringe SC SCH ×2 (10:22→21:20)
--- NOTE | 2017-09-25 23:00 | CP.PCM.PN ---
Subjective - Date & Time of Evaluation Date of Evaluation: 09/25/17 Time of Evaluation: 20:00 - Subjective Subjective: Pt was seen and examined, is found to have DVT, started on Levonox will be switched to coumadin Objective - Vital Signs/Intake and Output Vital Signs (last 24 hours): Temp Pulse Resp BP Pulse Ox 98.4 F 74 18 142/72 96 09/25/17 15:56 09/25/17 15:56 09/25/17 15:56 09/25/17 15:56 09/25/17 15:56 - Medications Medications: Current Medications Amoxicillin (Amoxil 500 Mg Cap) 1,000 mg PO Q12 [facility] Stop: 10/05/17 11:16 Last Admin: 09/25/17 21:20 Dose: 1,000 mg Docusate Sodium (Colace) 100 mg PO BID [facility] Last Admin: 09/25/17 17:32 Dose: 100 mg Enoxaparin Sodium (Lovenox) 60 mg SC Q12 [facility] Last Admin: 09/25/17 21:20 Dose: 60 mg BUPIVACAINE 0.125%/0.9% NACL (Bupivacaine-Ns 0.125% On-Q Front Office Java Developer) 600 mls @ 4 mls/ hr IJ Q150H PRN PRN Reason: Pain, moderate (4-7) Insulin Human Regular (Novolin R) 0 unit SC Q6H [facility] PRN Reason: Protocol Last Admin: 09/25/17 17:13 Dose: Not Given Levothyroxine Sodium (Synthroid) 100 mcg PO DAILY@0630 [facility] Last Admin: 09/25/17 06:41 Dose: 100 mcg Losartan Potassium (Cozaar) 100 mg PO DAILY [facility] Last Admin: 09/19/17 10:00 Dose: Not Given Pantoprazole Sodium (Protonix Ec Tab) 40 mg PO DAILY [facility] Last Admin: 09/25/17 10:21 Dose: 40 mg Saccharomyces Boulardii (Florastor) 250 mg PO BID [facility] Last Admin: 09/25/17 17:32 Dose: 250 mg - Labs Labs: 09/24/17 10:45 09/24/17 10:45 PT 12.9 SECONDS (9.7-12.2) H 09/25/17 06:12 INR 1.2 09/25/17 06:12 APTT 40 SECONDS (21-34) H 09/24/17 13:55 - Constitutional Appears: No Acute Distress - Head Exam Head Exam: ATRAUMATIC, NORMAL INSPECTION, NORMOCEPHALIC - Eye Exam Eye Exam: EOMI, Normal appearance, PERRL Pupil Exam: NORMAL ACCOMODATION, PERRL - Respiratory Exam Respiratory Exam: Clear to Ausculation Bilateral - Cardiovascular Exam Cardiovascular Exam: REGULAR RHYTHM, +S1, +S2. absent: Murmur - GI/Abdominal Exam GI & Abdominal Exam: Soft, Normal Bowel Sounds. absent: Tenderness Assessment and Plan (1) Abdominal pain Status: Acute (2) Gastrointestinal hemorrhage Status: Acute (3) Mass of colon Status: Acute (4) DVT (deep venous thrombosis) Assessment & Plan: started on levonox switch to coumadin Status: Acute
[2017-09-26] MEDS: (Novolin R) Insulin Human Regular 100 units/ml vial SC SCH ×3 (00:11→12:11)
[2017-09-26] MEDS ORDERED: Oxycodone/Acetaminophen 5/325 mg Tab PO PRN (04:51)
[2017-09-26] MEDS: Levothyroxine 100 MCG TAB PO SCH (05:52)
--- NOTE | 2017-09-26 08:14 | CP.PCM.PN ---
Subjective - Date & Time of Evaluation Date of Evaluation: 09/26/17 Time of Evaluation: 07:00 - Subjective Subjective: Surgical Progress Note: Patient was seen and examined at bedside in the AM. Patient states she is doing well. Patient denies nausea, vomiting, fever, chest pain, or shortness of breath. Objective - Vital Signs/Intake and Output Vital Signs (last 24 hours): Temp Pulse Resp BP Pulse Ox 99 F 81 20 146/70 96 09/25/17 23:45 09/25/17 23:45 09/25/17 23:45 09/25/17 23:45 09/25/17 23:45 - Medications Medications: Current Medications Amoxicillin (Amoxil 500 Mg Cap) 1,000 mg PO Q12 [facility] Stop: 10/05/17 11:16 Last Admin: 09/25/17 21:20 Dose: 1,000 mg Docusate Sodium (Colace) 100 mg PO BID [facility] Last Admin: 09/25/17 17:32 Dose: 100 mg Enoxaparin Sodium (Lovenox) 60 mg SC Q12 [facility] Last Admin: 09/25/17 21:20 Dose: 60 mg BUPIVACAINE 0.125%/0.9% NACL (Bupivacaine-Ns 0.125% On-Q Subacute Nurse) 600 mls @ 4 mls/ hr IJ Q150H PRN PRN Reason: Pain, moderate (4-7) Insulin Human Regular (Novolin R) 0 unit SC Q6H [facility] PRN Reason: Protocol Last Admin: 09/26/17 06:41 Dose: Not Given Levothyroxine Sodium (Synthroid) 100 mcg PO DAILY@0630 [facility] Last Admin: 09/26/17 05:52 Dose: 100 mcg Losartan Potassium (Cozaar) 100 mg PO DAILY [facility] Last Admin: 09/19/17 10:00 Dose: Not Given Oxycodone/Acetaminophen (Percocet 5/325 Mg Tab) 1 tab PO Q4H PRN PRN Reason: Pain, moderate (4-7) Stop: 09/29/17 04:52 Last Admin: 09/26/17 05:08 Dose: 1 tab Pantoprazole Sodium (Protonix Ec Tab) 40 mg PO DAILY [facility] Last Admin: 09/25/17 10:21 Dose: 40 mg Saccharomyces Boulardii (Florastor) 250 mg PO BID [facility] Last Admin: 09/25/17 17:32 Dose: 250 mg - Labs Labs: 09/24/17 10:45 09/24/17 10:45 PT 12.9 SECONDS (9.7-12.2) H 09/25/17 06:12 INR 1.2 09/25/17 06:12 APTT 40 SECONDS (21-34) H 09/24/17 13:55 - Constitutional Appears: No Acute Distress - Head Exam Head Exam: ATRAUMATIC, NORMAL INSPECTION - Eye Exam Eye Exam: EOMI, Normal appearance - ENT Exam ENT Exam: Mucous Membranes Moist - Respiratory Exam Respiratory Exam: NORMAL BREATHING PATTERN - Cardiovascular Exam Cardiovascular Exam: +S1, +S2 - GI/Abdominal Exam GI & Abdominal Exam: Soft. absent: Distended, Tenderness - Extremities Exam Extremities Exam: Pedal Edema (with improvement ) - Neurological Exam Neurological Exam: Alert, Awake, Oriented x3 - Psychiatric Exam Psychiatric exam: Normal Affect, Normal Mood Assessment and Plan - Assessment and Plan (Free Text) Assessment: 82 year old female POD#7 s/p LAR. Currently with DVT in right leg - presumably chronic On therapeutic Lovenox Bridging to warfarin by primary Patient is clear for d/c once INR at appropriate level - INR (09/25): 1.2 Bernie Nunez PGY-1
[2017-09-26 08:41] VITALS: O2SAT 98
[2017-09-26] MEDS: Saccharomyces Boulardi 250 mg Cap PO SCH (09:38)
[2017-09-26] MEDS: Pantoprazole 40 mg EC Tab PO SCH (09:38)
[2017-09-26] MEDS: Enoxaparin 60 mg Syringe SC SCH (09:38)
[2017-09-26 11:39] LABS: INR 1.3
--- NOTE | 2017-09-26 14:24 | CP.PCM.PN ---
Subjective - Date & Time of Evaluation Date of Evaluation: 09/26/17 Time of Evaluation: 10:35 - Subjective Subjective: Patient seen today, denies any chest pain, sob, abdominal pain, N/V, tolerating diet + BM, no bleeding reported. wants to go home today s/p LAR. POD#7 Objective - Vital Signs/Intake and Output Vital Signs (last 24 hours): Temp Pulse Resp BP Pulse Ox 98.1 F 91 H 18 154/74 H 98 09/26/17 07:00 09/26/17 09:32 09/26/17 09:32 09/26/17 09:32 09/26/17 07:00 - Medications Medications: Current Medications Amoxicillin (Amoxil 500 Mg Cap) 1,000 mg PO Q12 [facility] Stop: 10/05/17 11:16 Last Admin: 09/26/17 09:37 Dose: 1,000 mg Docusate Sodium (Colace) 100 mg PO BID [facility] Last Admin: 09/26/17 09:37 Dose: 100 mg Enoxaparin Sodium (Lovenox) 60 mg SC Q12 [facility] Last Admin: 09/26/17 09:38 Dose: 60 mg BUPIVACAINE 0.125%/0.9% NACL (Bupivacaine-Ns 0.125% On-Q [employer]) 600 mls @ 4 mls/ hr IJ Q150H PRN PRN Reason: Pain, moderate (4-7) Insulin Human Regular (Novolin R) 0 unit SC Q6H [facility] PRN Reason: Protocol Last Admin: 09/26/17 12:11 Dose: Not Given Levothyroxine Sodium (Synthroid) 100 mcg PO DAILY@0630 [facility] Last Admin: 09/26/17 05:52 Dose: 100 mcg Losartan Potassium (Cozaar) 100 mg PO DAILY [facility] Last Admin: 09/19/17 10:00 Dose: Not Given Oxycodone/Acetaminophen (Percocet 5/325 Mg Tab) 1 tab PO Q4H PRN PRN Reason: Pain, moderate (4-7) Stop: 09/29/17 04:52 Last Admin: 09/26/17 05:08 Dose: 1 tab Pantoprazole Sodium (Protonix Ec Tab) 40 mg PO DAILY [facility] Last Admin: 09/26/17 09:38 Dose: 40 mg Saccharomyces Boulardii (Florastor) 250 mg PO BID [facility] Last Admin: 09/26/17 09:38 Dose: 250 mg - Labs Labs: 09/24/17 10:45 09/24/17 10:45 PT 14.6 SECONDS (9.7-12.2) H 09/26/17 11:28 INR 1.3 09/26/17 11:28 APTT 40 SECONDS (21-34) H 09/24/17 13:55 - Constitutional Appears: Well, No Acute Distress - Respiratory Exam Respiratory Exam: Clear to Ausculation Bilateral, NORMAL BREATHING PATTERN - Cardiovascular Exam Cardiovascular Exam: REGULAR RHYTHM, +S1, +S2 - GI/Abdominal Exam GI & Abdominal Exam: Soft (dressing in place ) - Neurological Exam Neurological Exam: Alert, Awake, Oriented x3 Assessment and Plan - Assessment and Plan (Free Text) Assessment: A/P 82 yr old female admitted for rectal bleeding s/p LAR. POD#7 duplex scan R LE + DVT started on lovenox bridge with coumadin , INR- 1.3 today D/W Dr. Miner cleared for discharge from surgical standpoint and f/u wiht his office in 2 weeks D/W Dr. Butt, cleared for discharge home today and f/u with Dr. Butt office on Friday Discharge plan discussed with patient and daughter at bed side , who understands and agrees with plan
[2017-09-26 14:25] LABS: BASO # 0.1 K/uL (0.0-0.2); BASO % 0.7 % (0.0-2.0); EOS # 0.2 K/uL (0.0-0.7); EOS % 1.9 % (0.0-4.0); HEMATOCRIT 28.5 % (34.0-47.0); LYMPH # 1.2 K/uL (1.0-4.3); LYMPH % 13.6 % (20.0-40.0); MEAN CELL VOLUME 89.5 fL (81.0-99.0); MEAN CORPUSCULAR HEMOGLOBIN 30.3 pg (27.0-31.0); MEAN CORPUSCULAR HGB CONC 33.8 g/dL (33.0-37.0); MEAN PLATELET VOLUME 7.3 fL (7.2-11.7); MONO # 0.9 K/uL (0.0-0.8); MONO % 10.1 % (0.0-10.0); RED CELL DISTRIBUTION WIDTH 15.6 % (11.5-14.5); WHITE BLOOD COUNT 8.8 K/uL (4.8-10.8)
[2017-09-26 14:41] LABS: BLOOD UREA NITROGEN 9 mg/dL (7-17); CALCIUM 7.6 mg/dl (8.6-10.4); CARBON DIOXIDE 28 mmol/L (22-30); CHLORIDE 97 mmol/L (98-107); GFR AFRICAN-AMERICAN > 60; GLUCOSE,RANDOM 130 mg/dL (65-105); SODIUM 130 mmol/L (132-148)
[2017-09-26 16:47] VITALS: BP 147/70; PULSE 85; RESP 20; TEMP 99.4
--- NOTE | 2017-09-26 23:37 | CP.PCM.DIS ---
Provider - Provider Date of Admission: 09/16/17 13:47 Attending physician: Christ Butt MD Time Spent in preparation of Discharge (in minutes): 56 Diagnosis - Discharge Diagnosis (1) Abdominal pain Status: Acute (2) Gastrointestinal hemorrhage Status: Acute (3) Mass of colon Status: Acute (4) DVT (deep venous thrombosis) Status: Acute Hospital Course - Lab Results Lab Results: Micro Results 09/19/17 13:05 Urine,Catheterized Urine Culture - Final No Growth (<1,000 CFU/ML) 09/21/17 19:45 Naris MRSA Culture - Final MRSA NOT DETECTED 09/19/17 21:43 Naris MRSA Culture (Admit) - Final MRSA NOT DETECTED Most Recent Lab Values WBC 8.8 K/uL (4.8-10.8) 09/26/17 14:02 RBC 3.19 Mil/uL (3.80-5.20) L 09/26/17 14:02 Hgb 9.7 g/dL (11.0-16.0) L 09/26/17 14:02 Hct 28.5 % (34.0-47.0) L 09/26/17 14:02 MCV 89.5 fL (81.0-99.0) 09/26/17 14:02 MCH 30.3 pg (27.0-31.0) 09/26/17 14:02 MCHC 33.8 g/dL (33.0-37.0) 09/26/17 14:02 RDW 15.6 % (11.5-14.5) H 09/26/17 14:02 Plt Count 332 K/uL (130-400) 09/26/17 14:02 MPV 7.3 fL (7.2-11.7) 09/26/17 14:02 Neut % (Auto) 73.7 % (50.0-75.0) 09/26/17 14:02 Lymph % (Auto) 13.6 % (20.0-40.0) L 09/26/17 14:02 Drew % (Auto) 10.1 % (0.0-10.0) H 09/26/17 14:02 Eos % (Auto) 1.9 % (0.0-4.0) 09/26/17 14:02 Baso % (Auto) 0.7 % (0.0-2.0) 09/26/17 14:02 Neut # 6.5 K/uL (1.8-7.0) 09/26/17 14:02 Lymph # 1.2 K/uL (1.0-4.3) 09/26/17 14:02 Drew # 0.9 K/uL (0.0-0.8) H 09/26/17 14:02 Eos # 0.2 K/uL (0.0-0.7) 09/26/17 14:02 Baso # 0.1 K/uL (0.0-0.2) 09/26/17 14:02 Neutrophils % (Manual) 82 % (50-75) H 09/21/17 06:28 Band Neutrophils % 1 % (0-2) 09/21/17 06:28 Lymphocytes % (Manual) 9 % (20-40) L 09/21/17 06:28 Monocytes % (Manual) 8 % (0-10) 09/21/17 06:28 Platelet Estimate Normal (NORMAL) 09/21/17 06:28 Poikilocytosis (manual Slight 09/20/17 06:00 Anisocytosis (manual) Slight 09/21/17 06:28 PT 14.6 SECONDS (9.7-12.2) H 09/26/17 11:28 INR 1.3 09/26/17 11:28 APTT 40 SECONDS (21-34) H 09/24/17 13:55 Sodium 130 mmol/L (132-148) L 09/26/17 14:02 Potassium 4.0 mmol/L (3.6-5.2) 09/26/17 14:02 Chloride 97 mmol/L (98-107) L 09/26/17 14:02 Carbon Dioxide 28 mmol/L (22-30) 09/26/17 14:02 Anion Gap 9 (10-20) L 09/26/17 14:02 BUN 9 mg/dL (7-17) 09/26/17 14:02 Creatinine 0.9 mg/dL (0.7-1.2) 09/26/17 14:02 Est GFR ( Amer) > 60 09/26/17 14:02 Est GFR (Non-Af Amer) > 60 09/26/17 14:02 POC Glucose (mg/dL) 129 mg/dL (65-110) H 09/26/17 11:36 Random Glucose 130 mg/dL (65-105) H 09/26/17 14:02 Lactic Acid 1.7 mmol/L (0.7-2.1) 09/19/17 20:45 Calcium 7.6 mg/dl (8.6-10.4) L 09/26/17 14:02 Phosphorus 4.1 mg/dL (2.5-4.5) 09/21/17 06:28 Magnesium 1.6 mg/dL (1.6-2.3) 09/21/17 06:28 Total Bilirubin 0.5 mg/dL (0.2-1.3) 09/21/17 06:28 AST 19 U/L (14-36) 09/21/17 06:28 ALT 33 U/L (9-52) 09/21/17 06:28 Alkaline Phosphatase 42 U/L (38-126) 09/21/17 06:28 Total Protein 4.6 g/dL (6.3-8.3) L 09/21/17 06:28 Albumin 2.4 g/dL (3.5-5.0) L 09/21/17 06:28 Globulin 2.2 gm/dL (2.2-3.9) 09/21/17 06:28 Albumin/Globulin Ratio 1.1 (1.0-2.1) 09/21/17 06:28 Lipase 24 U/L (23-300) 09/16/17 12:34 Urine Color Red (YELLOW) 09/20/17 09:55 Urine Clarity Hazy (Clear) 09/20/17 09:55 Urine pH 6.0 (5.0-8.0) 09/20/17 09:55 Ur Specific [place] 1.015 (1.003-1.030) 09/20/17 09:55 Urine Protein 2+ mg/dL (NEGATIVE) H 09/20/17 09:55 Urine Glucose (UA) 1+ mg/dL (Normal) 09/20/17 09:55 Urine Ketones Trace mg/dL (NEGATIVE) 09/20/17 09:55 Urine Blood 2+ (NEGATIVE) H 09/20/17 09:55 Urine Nitrate Negative (NEGATIVE) 09/20/17 09:55 Urine Bilirubin Negative (NEGATIVE) 09/20/17 09:55 Urine Urobilinogen Normal mg/dL (0.2-1.0) 09/20/17 09:55 Ur Leukocyte Esterase Trace Eduardo/uL (Negative) 09/20/17 09:55 Urine WBC (Auto) 11 /hpf (0-5) H 09/20/17 09:55 Urine RBC (Auto) 14696 /hpf (0-3) H 09/20/17 09:55 Ur Squamous Epith Cells 1 /hpf (0-5) 09/16/17 14:38 Urine Bacteria Occ (<OCC) H 09/20/17 09:55 Blood Type O POSITIVE 09/17/17 17:26 Antibody Screen Negative 09/17/17 17:26 - Hospital Course Hospital Course: Patient seen today, denies any chest pain, sob, abdominal pain, N/V, tolerating diet + BM, no bleeding reported. wants to go home today s/p LAR. POD#7 duplex scan R LE + DVT started on lovenox bridge with coumadin , INR- 1.3 today D/W Dr. Miner cleared for discharge from surgical standpoint and f/u wiht his office in 2 weeks f/u with ME in office on Friday Discharge plan discussed with patient and daughter at bed side , who understands and agrees with plan Discharge Exam - Head Exam Head Exam: ATRAUMATIC, NORMAL INSPECTION - Eye Exam Eye Exam: EOMI, Normal appearance - ENT Exam ENT Exam: Mucous Membranes Moist - Respiratory Exam Respiratory Exam: Clear to PA & Lateral, NORMAL BREATHING PATTERN - Cardiovascular Exam Cardiovascular Exam: REGULAR RHYTHM, +S1, +S2 - GI/Abdominal Exam GI & Abdominal Exam: Normal Bowel Sounds - Neurological Exam Neurological exam: Alert, Oriented x3 Discharge Plan - Discharge Medications Prescriptions: Warfarin [Coumadin] 5 mg PO 1800 #10 tab oxyCODONE/Acetaminophen [Percocet 5/325 mg Tab] 1 ea PO Q6 PRN #20 tab PRN Reason: Pain, Moderate (4-7) Pantoprazole [Protonix EC Tab] 40 mg PO DAILY #30 ect - Follow Up Plan Condition: STABLE Disposition: HOME/ ROUTINE Instructions: Warfarin (By mouth), Pantoprazole (By mouth), Gastritis (DC), Gastrointestinal Bleeding (DC), Cystoscopy (DC), Ureteral Stent Placement (DC) Additional Instructions: Please follow up with Dr. Butt office on friday ( needs blood work -INR) Please follow up with Dr. Miner office-follow up - call and make appointment continue medication as per Med. REc. VNA service for home PT If any bleeding please call Dr. Butt or come to the ED for evaluation PLEASE TRIPE FINISHER MEDICATION FROM PHARMACY PLEASE START COUMADIN TOMORROW Referrals: Christ Butt MD [Staff Provider] - Xavier Miner Jr., MD [Staff Provider] -
== END 2017-09-26 17:32 | disposition home or self-care (01) | DRG 330 ==
LOC: C.ER 11:49 → C.9E 13:47 → C.6T 15:47 → C.9I 09-19 17:33 → C.6T 09-21 17:00
PROVIDERS: ADMIT Internal Medicine; ATTEND Internal Medicine
PROC: 0DTN0ZZ Resection of Sigmoid Colon, Open Approach (ICD-10-PCS; principal; 2017-09-16)
PROC: 0DTP0ZZ Resection of Rectum, Open Approach (ICD-10-PCS; 2017-09-16)
PROC: 0DB98ZX Excision of Duodenum, Via Natural or Artificial Opening Endoscopic, Diagnostic (ICD-10-PCS; 2017-09-17)
PROC: 0DB68ZX Excision of Stomach, Via Natural or Artificial Opening Endoscopic, Diagnostic (ICD-10-PCS; 2017-09-17)
PROC: 0DBN8ZX Excision of Sigmoid Colon, Via Natural or Artificial Opening Endoscopic, Diagnostic (ICD-10-PCS; 2017-09-17)
PROC: 0T788DZ Dilation of Bilateral Ureters with Intraluminal Device, Via Natural or Artificial Opening Endoscopic (ICD-10-PCS; 2017-09-19)
PROC: 0TJB8ZZ Inspection of Bladder, Via Natural or Artificial Opening Endoscopic (ICD-10-PCS; 2017-09-19)
DX: C18.7 Malignant neoplasm of sigmoid colon (principal); I82.4Z1 Acute embolism and thrombosis of unspecified deep veins of right distal lower extremity; C78.6 Secondary malignant neoplasm of retroperitoneum and peritoneum; K92.1 Melena; I10 Essential (primary) hypertension; K29.50 Unspecified chronic gastritis without bleeding; K29.80 Duodenitis without bleeding; K64.8 Other hemorrhoids; Z87.891 Personal history of nicotine dependence; D50.9 Iron deficiency anemia, unspecified; N30.80 Other cystitis without hematuria; E03.9 Hypothyroidism, unspecified

== ENCOUNTER 2017-10-07 04:36 | Inpatient (IN) | payer MEDICARE ==
[2017-10-07 04:36] VITALS: BMI 20.3
--- NOTE | 2017-10-07 05:59 | C.PDOC ---
History Of Present Illness 82 year old female is brought to the ED by daughter for evaluation of bleeding from lower abdominal incision site which began prior to arrival. Patient underwent an anterior rectogontmoectomy by Dr. Miner on 09/19. Patient also has history of right sided DVT. Patient was discharged home with Rx for Coumadin on 09/26. Patient has bilateral ureteral stent placement by Dr. Chaudhry. She denies fever, chills. Time Seen by Provider: 10/07/17 04:57 Chief Complaint (Nursing): Abnormal Skin Integrity History Per: Patient, Family History/Exam Limitations: no limitations Current Symptoms Are (Timing): Still Present Additional History Per: Patient, Family Past Medical History Reviewed: Historical Data, Nursing Documentation, Vital Signs Vital Signs: Last Vital Signs Temp 98 F 10/07/17 06:21 Pulse 75 10/07/17 06:21 Resp 16 10/07/17 06:21 BP 150/70 10/07/17 06:21 Pulse Ox 98 10/07/17 06:35 - Medical History PMH: Fractures (RIGHT FOOT-NO SURGERY), HTN, Hypothyroidism Denies: Chronic Kidney Disease Surgical History: No Surg Hx - [facility] Procedures DILATION OF BILATERAL URETERS WITH INTRALUMINAL DEVICE, ENDO (09/16/17) EXCISION OF DUODENUM, ENDO, DIAGN (09/16/17) EXCISION OF SIGMOID COLON, ENDO, DIAGN (09/16/17) EXCISION OF STOMACH, ENDO, DIAGN (09/16/17) INSPECTION OF BLADDER, ENDO (09/16/17) RESECTION OF RECTUM, OPEN APPROACH (09/16/17) RESECTION OF SIGMOID COLON, OPEN APPROACH (09/16/17) Family History: States: Unknown Family Hx - Social History Hx Alcohol Use: No Hx Substance Use: No - Immunization History Hx Tetanus Toxoid Vaccination: No Hx Influenza Vaccination: No Hx Pneumococcal Vaccination: No Review Of Systems Skin: Positive for: Other (bleeding from lower abdominal incision site ) Physical Exam - Physical Exam Appears: Non-toxic, No Acute Distress, Other (elderyl black female ) Skin: Normal Color, Warm, Dry Head: Atraumatic, Normacephalic Oral Mucosa: Moist Neck: Supple Chest: Symmetrical, No Deformity, No Tenderness Cardiovascular: Rhythm Regular, No Murmur Respiratory: Normal Breath Sounds, No Rales, No Rhonchi, No Wheezing Gastrointestinal/Abdominal: Soft, No Tenderness, No Guarding, No Rebound, Other (large midline surgical scar with widely spaced marlena. scant amount of serosanguineous fluid noted between marlena. no fluctuance, four odor, or surrounding erythema ) Extremity: Normal ROM, Capillary Refill (less than 2 seconds ) Neurological/Psych: Oriented x3, Normal Speech, Normal Cognition Gait: Steady ED Course And Treatment - Laboratory Results Result Diagrams: 10/07/17 05:59 ECG: Interpreted By Me ECG Rhythm: Sinus Rhythm ECG Interpretation: Normal Rate From EC O2 Sat by Pulse Oximetry: 98 (on RA) Pulse Ox Interpretation: Normal - Radiology CXR: Interpreted by Me CXR Interpretation: Yes: No Acute Disease Progress Note: Bloodwork, UA, CXR, EKG ordered and reviewed. Case discussed with surgical rn, Chelsea, who will evaluate the patient at bedside. Reevaluation Time: 06:32 Reassessment Condition: Improved - Physician Consult Information Outcome Of Conversation: [phone]: Dr. Butt aware Disposition - Disposition Disposition Time: 07:00 Condition: GOOD Forms: [facility] (Pashto) - Clinical Impression Clinical Impression: Abnormal surgical wound - Scribe Statement The provider has reviewed the documentation as recorded by the Scribe (Abigail Valle) Provider Attestation: All medical record entries made by the Scribe were at my direction and personally dictated by me. I have reviewed the chart and agree that the record accurately reflects my personal performance of the history, physical exam, medical decision making, and the department course for this patient. I have also personally directed, reviewed, and agree with the discharge instructions and disposition. Physician Patient Turnover Patient Signed Over To: Zeyad Ryder Handoff Comments: pending eval by Dr. Miner (Surgery) @ 0830. Follow-up labs (pt on Coumadin for R leg DVT). dispo per Surgery. PMD: Filomena
[2017-10-07 06:02] LABS: BASO # 0.1 K/uL (0.0-0.2); EOS # 0.1 K/uL (0.0-0.7); EOS % 1.8 % (0.0-4.0); HEMOGLOBIN 8.5 g/dL (11.0-16.0); LYMPH # 1.1 K/uL (1.0-4.3); LYMPH % 14.9 % (20.0-40.0); MEAN CELL VOLUME 89.4 fL (81.0-99.0); MEAN CORPUSCULAR HEMOGLOBIN 30.7 pg (27.0-31.0); MEAN CORPUSCULAR HGB CONC 34.4 g/dL (33.0-37.0); MEAN PLATELET VOLUME 6.3 fL (7.2-11.7); MONO # 0.5 K/uL (0.0-0.8); MONO % 7.5 % (0.0-10.0); NEUT # 5.4 K/uL (1.8-7.0); NEUT % 74.8 % (50.0-75.0); RBC 2.77 Mil/uL (3.80-5.20); RED CELL DISTRIBUTION WIDTH 15.9 % (11.5-14.5); WHITE BLOOD COUNT 7.3 K/uL (4.8-10.8)
[2017-10-07 06:34] LABS: PROTHROMBIN TIME 22.4 SECONDS (9.7-12.2)
[2017-10-07 06:50] LABS: ALBUMIN 3.1 g/dL (3.5-5.0); ALT/SGPT 21 U/L (9-52); AST/SGOT 51 U/L (14-36); BLOOD UREA NITROGEN 16 mg/dL (7-17); CALCIUM 7.8 mg/dl (8.6-10.4); GFR AFRICAN-AMERICAN > 60; GFR NON-AFRICAN AMERICAN 53
--- NOTE | 2017-10-07 07:51 | RAD ---
HISTORY: adm COMPARISON: No prior. FINDINGS: LUNGS: No consolidation. PLEURA: No significant pleural effusion identified, no pneumothorax apparent. CARDIOVASCULAR: Top-normal heart size. Pulmonary venous congestion borderline increased OSSEOUS STRUCTURES: Thoracic spondylosis VISUALIZED UPPER ABDOMEN: Normal. OTHER FINDINGS: Surgical clips project over peritracheal/ neck soft tissue likely thyroid surgery related IMPRESSION: No consolidation or pneumothorax. No pleural effusion Central pulmonary vasculature borderline increased Thyroid surgical changes
[2017-10-07 10:14] LABS: SQUAMOUS EPITHIAL 1 /hpf (0-5); URINE BACTERIA RARE (<OCC); URINE BILIRUBIN NEGATIVE (NEGATIVE); URINE BLOOD 1+ (NEGATIVE); URINE CLARITY Clear (Clear); URINE COLOR Straw (YELLOW); URINE GLUCOSE (UA) NORMAL (Normal); URINE LEUKOCYTE ESTERASE NEG Leu/uL (Negative); URINE NITRATE NEGATIVE (NEGATIVE); URINE PROTEIN NEGATIVE (NEGATIVE); URINE UROBILINOGEN NORMAL mg/dL (0.2-1.0)
[2017-10-07] MEDS ORDERED: Sodium Chloride 0.9% 1,000 ML ONE (10:50)
[2017-10-07] MEDS: Sodium Chloride 0.9% 1,000 ML IV SCH ×2 (10:55→22:43)
--- NOTE | 2017-10-07 11:16 | CT ---
PROCEDURE: CT Abdomen and Pelvis without contrast HISTORY: abd pain, h/o of recent surgery COMPARISON: CT abdomen pelvis 09/17/2017. TECHNIQUE: CT scan of the abdomen and pelvis was performed without IV contrast. The absence of oral contrast limits evaluation of bowel lumen. The absence of intravenous contrast limits evaluation of solid organs including the kidneys as well as blood vessels and vascular structures. Coronal and sagittal reconstructions were also acquired. Radiation dose: Total exam DLP = 437 mGy-cm. FINDINGS: LOWER THORAX: Visualized portion lung bases demonstrate mild posterior dependent atelectasis. Heart is normal in size.. LIVER: Subcentimeter hypodensity noted in the left lobe, too small to characterize. GALLBLADDER AND BILE DUCTS: Multiple gallstones noted within the gallbladder. PANCREAS: Unremarkable unenhanced appearance. SPLEEN: Unremarkable unenhanced appearance. ADRENALS: Right adrenal gland is unremarkable. Mild nonspecific left adrenal gland thickening, unchanged. KIDNEYS AND URETERS: Right kidney: Unremarkable unenhanced appearance. There is no nephrolithiasis or hydronephrosis. Left kidney: Stable left renal cysts. No nephrolithiasis or hydronephrosis. BLADDER: Unremarkable REPRODUCTIVE: Uterus is surgically absent. APPENDIX: Appendicolith noted within the appendix. STOMACH AND BOWEL: There is no abnormal small of large bowel dilatation. Rectosigmoid anastomotic sutures noted. Sigmoid diverticulosis without diverticulitis. Large amount stool noted throughout the colon. Large amount of stool noted in the rectum. PERITONEUM: Small amount of pelvic free fluid. Some of fluid demonstrates increased density measuring up to 23 Hounsfield units. LYMPH NODES: No significant abdominal or pelvic lymphadenopathy. VASCULATURE: Aorta is normal in caliber. BONES: Stable grade 1 anterolisthesis of L3 on L4 measuring 0.5 cm. OTHER FINDINGS: There is anasarca. Midline ventral surgical marlena are noted. Deep to the surgical marlena, in the subcutaneous fat, there is a heterogeneous fluid collection measuring 10 x 4.5 x 7.1 cm (craniocaudad by AP by transverse). Areas of increased density are noted within the collection, likely hemorrhage.. IMPRESSION: Hematoma measuring 10 cm deep to the surgical marlena in the midline subcutaneous fat, below the level of the umbilicus. Small amount of pelvic free fluid that is mildly increased in density, nonspecific, but may represent hemorrhage. New rectosigmoid anastomosis that appears patent with a large amount of stool in the rectum. Large amount of stool noted throughout the colon. Additional findings as above.
--- NOTE | 2017-10-07 12:15 | CP.PCM.CON ---
History of Present Illness - History of Present Illness History of Present Illness: Surgery CC: Wound dehiscence HPI:This is a 82 year old female with recent PSH of colectomy for colon CA on came with opening and bleeding from the wound. During last admission pt was found to have DVT of R peroneal vein and is on Coumadin. Pt denies any other bleeding site/F/C/N/V/D/Cp/SPOB/Weakness/dizziness/LOC. Pt hadn't had a chance to follow up with Dr. Miner post operatively. CT of abd showed large hematoma of the abd. Hgd 8.5. Pt took coumadin last night. Surgery is consulted to evaluate for wound dehiscence. Pt is consented and booked for OR> PmHx: Hypothyroid, DVT PsHx: Colectomy 09/19/17 SHx: Denies alcohol, former smoker, denies drugs FHx: Denies family hx of colon cancer Review of Systems - Review of Systems Review of Systems: See HPI Past Patient History - Past Medical History & Family History Past Medical History?: Yes - Past Social History Smoking Status: Former Smoker - CARDIAC Hx Hypertension: Yes - PULMONARY Hx Respiratory Disorders: No - NEUROLOGICAL Hx Neurological Disorder: No - HEENT Hx HEENT Problems: No - RENAL Hx Chronic Kidney Disease: No - ENDOCRINE/METABOLIC Hx Hypothyroidism: Yes - HEMATOLOGICAL/ONCOLOGICAL Hx Blood Disorders: No - INTEGUMENTARY Hx Dermatological Problems: No - MUSCULOSKELETAL/RHEUMATOLOGICAL Hx Fractures: Yes (RIGHT FOOT-NO SURGERY) - GASTROINTESTINAL Hx Gastrointestinal Disorders: No - GENITOURINARY/GYNECOLOGICAL Hx Genitourinary Disorders: No - PSYCHIATRIC Hx Substance Use: No - SURGICAL HISTORY Hx Surgeries: Yes Other/Comment: HX: SOME TYPE OF THYROID SURGERY- PT. NOT SURE IF TOTAL. - ANESTHESIA Hx Anesthesia: Yes Hx Anesthesia Reactions: No Hx Malignant Hyperthermia: No Meds Allergies/Adverse Reactions: Allergies Allergy/AdvReac Type Severity Reaction Status Date / Time No Known Allergies Allergy Verified 09/16/17 12:02 - Medications Medications: Current Medications Enoxaparin Sodium (Lovenox) 40 mg SC DAILY [facility] Ceftriaxone Sodium 1 gm/ (Sodium Chloride) 100 mls @ 100 mls/hr IVPB Q12H [facility] Last Admin: 10/07/17 11:18 Dose: 100 mls/hr Metronidazole (Flagyl) 500 mg in 100 mls @ 100 mls/hr IVPB Q8 [facility] Sodium Chloride (Sodium Chloride 0.9%) 1,000 mls @ 100 mls/hr IV .Q10H [facility] Last Admin: 10/07/17 10:55 Dose: 100 mls/hr Ceftriaxone Sodium 1 gm/ (Sodium Chloride) 100 mls @ 100 mls/hr IVPB DAILY [facility] Levothyroxine Sodium (Synthroid) 100 mcg PO DAILY@0630 [facility] Losartan Potassium (Cozaar) 50 mg PO DAILY [facility] Physical Exam - Constitutional Appears: No Acute Distress - Head Exam Head Exam: ATRAUMATIC, NORMAL INSPECTION, NORMOCEPHALIC - Eye Exam Eye Exam: EOMI, Normal appearance, PERRL Pupil Exam: NORMAL ACCOMODATION, PERRL - ENT Exam ENT Exam: Mucous Membranes Moist, Normal Exam - Neck Exam Neck exam: Positive for: Normal Inspection - Respiratory Exam Respiratory Exam: Clear to Auscultation Bilateral, NORMAL BREATHING PATTERN - Cardiovascular Exam Cardiovascular Exam: REGULAR RHYTHM - GI/Abdominal Exam GI & Abdominal Exam: Soft, Tenderness. absent: Distended, Firm, Guarding, Rigid Additional comments: Lower pole incision open 2cm. bleeding. [place] in place - Extremities Exam Extremities exam: Positive for: normal inspection - Back Exam Back exam: NORMAL INSPECTION - Neurological Exam Neurological exam: Alert, CN II-XII Intact, Normal Gait, Oriented x3, Reflexes Normal - Psychiatric Exam Psychiatric exam: Normal Affect, Normal Mood - Skin Skin Exam: Normal Color, Warm Results - Vital Signs Recent Vital Signs: Last Vital Signs Temp 98 F 10/07/17 06:21 Pulse 62 10/07/17 11:29 Resp 16 10/07/17 11:29 BP 145/57 L 10/07/17 11:29 Pulse Ox 99 10/07/17 11:29 - Labs Result Diagrams: 10/07/17 05:59 10/07/17 05:59 Labs: Laboratory Results - last 24 hr 10/07/17 10/07/17 10/07/17 05:59 05:59 05:59 WBC 7.3 RBC 2.77 L Hgb 8.5 L Hct 24.7 L MCV 89.4 MCH 30.7 MCHC 34.4 RDW 15.9 H Plt Count 399 MPV 6.3 L Neut % (Auto) 74.8 Lymph % (Auto) 14.9 L [place] % (Auto) 7.5 Eos % (Auto) 1.8 Baso % (Auto) 1.0 Neut # 5.4 Lymph # 1.1 [place] # 0.5 Eos # 0.1 Baso # 0.1 PT 22.4 H INR 2.0 Sodium 134 Potassium 4.5 Chloride 99 Carbon Dioxide 29 Anion Gap 10 BUN 16 Creatinine 1.0 Est GFR ( Amer) > 60 Est GFR (Non-Af Amer) 53 Random Glucose 99 Calcium 7.8 L Total Bilirubin 0.4 AST 51 H D ALT 21 Alkaline Phosphatase 70 Total Protein 6.2 L Albumin 3.1 L D Globulin 3.1 Albumin/Globulin Ratio 1.0 Urine Color Urine Clarity Urine pH Ur Specific [place] Urine Protein Urine Glucose (UA) Urine Ketones Urine Blood Urine Nitrate Urine Bilirubin Urine Urobilinogen Ur Leukocyte Esterase Urine WBC (Auto) Urine RBC (Auto) Ur Squamous Epith Cells Urine Bacteria Blood Type Antibody Screen 10/07/17 10/07/17 09:52 10:51 WBC RBC Hgb Hct MCV MCH MCHC RDW Plt Count MPV Neut % (Auto) Lymph % (Auto) [place] % (Auto) Eos % (Auto) Baso % (Auto) Neut # Lymph # [place] # Eos # Baso # PT INR Sodium Potassium Chloride Carbon Dioxide Anion Gap BUN Creatinine Est GFR ( Amer) Est GFR (Non-Af Amer) Random Glucose Calcium Total Bilirubin AST ALT Alkaline Phosphatase Total Protein Albumin Globulin Albumin/Globulin Ratio Urine Color Straw Urine Clarity Clear Urine pH 6.0 Ur Specific [place] 1.010 Urine Protein Negative Urine Glucose (UA) Normal Urine Ketones Negative Urine Blood 1+ H Urine Nitrate Negative Urine Bilirubin Negative Urine Urobilinogen Normal Ur Leukocyte Esterase Neg Urine WBC (Auto) 2 Urine RBC (Auto) 4 H Ur Squamous Epith Cells 1 Urine Bacteria Rare Blood Type O POSITIVE Antibody Screen Negative Assessment & Plan - Assessment and Plan (Free Text) Assessment: Wound dehiscence and and hematoma -OR for evacuation of hematoma, repair of wound dehiscence -NPO -IVF -ABX -Medical management TOMMY Miner
[2017-10-07] MEDS ORDERED: metroNIDAZOLE IV 500 mg/100 ml 500 MG/100 ML BAG IVPB SCH (14:00)
[2017-10-07] MEDS ORDERED: metroNIDAZOLE IV 500 mg/100 ml 500 MG/100 ML BAG ONE (14:14)
[2017-10-07] MEDS ORDERED: Lactated Ringer's 1,000 ML IV ONE ×2 (14:30→15:45)
[2017-10-07] MEDS ORDERED: Propofol 10 mg/ml Inj (20 ML) ONE (14:42)
[2017-10-07] MEDS: metroNIDAZOLE IV 500 mg/100 ml 500 MG/100 ML BAG IVPB SCH ×2 (14:50→21:10)
[2017-10-07] MEDS ORDERED: Thrombin Topical 20,000 Intl Units Spray Kit TOP ONE (15:07)
--- NOTE | 2017-10-07 15:44 | PCM.SURG1 ---
Surgeon's Initial Post Op Note - Surgeon's Notes Surgeon: Dr. Miner Instructional Material Director: PGY4, Remy PGY1 Type of Anesthesia: General Endo Pre-Operative Diagnosis: Abdominal wall hematoma Operative Findings: see operative report Post-Operative Diagnosis: Abdominal wall hematoma Operation Performed: Evacuation of Abdominal wall hematoma Specimen/Specimens Removed: Abdominal wall hematoma Estimated Blood Loss: EBL {In ML}: 10 Blood Products Given: N/A Drains Used: No Drains Post-Op Condition: Good Date of Surgery/Procedure: 10/07/17 Time of Surgery/Procedure: 03:00
[2017-10-07] MEDS ORDERED: Oxycodone/Acetaminophen 5/325 mg Tab PO PRN (15:45)
[2017-10-07] MEDS ORDERED: Sodium Chloride 0.9% 1,000 ML IV ONE (17:25)
--- NOTE | 2017-10-07 21:36 | CP.PCM.HP ---
History of Present Illness - History of Present Illness History of Present Illness: CC: Abdominal pain, Wound dehiscence HPI:This is a 82 year old AA female with PMh of colon cancer , Hypetension, hypothyroidism, DVT (on coumadin) with recent PSH of colectomy for colon CA on 09/19/17 developed abdominal pain yesterday asociated with opening and bleeding from the wound. During last admission pt was found to have DVT of R peroneal vein and is on Coumadin. Pt denies any other bleeding site/F/C/N/V/D/Cp /SPOB/Weakness/dizziness/LOC. Pt hadn't had a chance to follow up with Dr. Miner post operatively. CT of abd showed large hematoma of the abd. Hgd 8.5. Pt took coumadin last night. Surgery is consulted to evaluate for wound dehiscence. Pt is consented and booked for OR> pt denies any fever, chills, nausea, vomitting, chest pain, cough Present on Admission - Present on Admission Any Indicators Present on Admission: Yes History of DVT/PE: Yes Review of Systems - Review of Systems Systems not reviewed;Unavailable: Acuity of Condition - Constitutional Constitutional: Fatigue, Malaise - EENT Eyes: absent: As Per HPI, Blind Spots, Blurred Vision, Change in Vision, Decreased Night Vision, Diplopia, Discharge, Dry Eye, Exophthalmos, Floaters, Irritation, Itchy Eyes, Loss of Peripheral Vision, Pain, Photophobia, Requires Corrective Lenses, Sees Flashes, Spots in Vision, Tunnel Vision, Other Visual Disturbances, Loss of Vision, Other Ears: absent: As Per HPI, Decreased Hearing, Ear Discharge, Ear Pain, Tinnitus, Abnormal Hearing, Disequilibrium, Dizziness, Other Nose/Mouth/Throat: absent: As Per HPI, Epistaxis, Nasal Congestion, Nasal Discharge, Nasal Obstruction, Nasal Trauma, Nose Pain, Post Nasal Drip, Sinus Pain, Sinus Pressure, Bleeding Gums, Change in Voice, Dental Pain, Dry Mouth, Dysphagia, Halitosis, Hoarsness, Lip Swelling, Mouth Lesions, Mouth Pain, Odynophagia, Sore Throat, Throat Swelling, Tongue Swelling, Facial Pain, Neck Pain, Neck Mass, Other - Cardiovascular Cardiovascular: absent: As Per HPI, Acrocyanosis, Chest Pain, Chest Pain at Rest , Chest Pain with Activity, Claudication, Diaphoresis, Dyspnea, Dyspnea on Exertion, Edema, Irregular Heart Rhythm, Pain Radiating to Arm/Neck/Jaw, Leg Edema, Leg Ulcers, Lightheadedness, Orthopnea, Palpitations, Paroxysmal Nocturnal Dyspnea, Pedal Edema, Radiating Pain, Rapid Heart Rate, Slow Heart Rate, Syncope, Other - Respiratory Respiratory: absent: As Per HPI, Cough, Dyspnea, Hemoptysis, Dyspnea on Exertion , Wheezing, Snoring, Stridor, Pain on Inspiration, Chest Congestion, Excessive Mucous Production, Change in Mucous Color, Pain with Coughing, Other - Gastrointestinal Gastrointestinal: Abdominal Pain - Musculoskeletal Musculoskeletal: Back Pain, Muscle Weakness - Integumentary Integumentary: Bleeding Lesions, Erythema, Lesions, Non-Healing Lesions, Swelling - Neurological Neurological: absent: As Per HPI, Abnormal Gait, Abnormal Hearing, Abnormal Movements, Abnormal Speech, Behavioral Changes, Burning Sensations, Confusion, Convulsions, Disequilibrium, Dizziness, Numbness, Focal Weakness, Frequent Falls , Headaches, Lack of Coordination, Loss of Vision, Memory Loss, Paresthesias, Radicular Pain, Restless Legs, Sensory Deficit, Syncope, Tingling, Tremor, Vertigo, Weakness, Other Visual Disturbances, Other Past Patient History - Past Medical History & Family History Past Medical History?: Yes - Past Social History Smoking Status: Former Smoker - CARDIAC Hx Cardiac Disorders: Yes Hx Hypertension: Yes - PULMONARY Hx Respiratory Disorders: No - NEUROLOGICAL Hx Neurological Disorder: No - HEENT Hx HEENT Problems: No - RENAL Hx Chronic Kidney Disease: No - ENDOCRINE/METABOLIC Hx Endocrine Disorders: Yes Hx Hypothyroidism: Yes - HEMATOLOGICAL/ONCOLOGICAL Hx Cancer: Yes (colon) - INTEGUMENTARY Hx Dermatological Problems: No - MUSCULOSKELETAL/RHEUMATOLOGICAL Hx Falls: Yes Hx Fractures: Yes (RIGHT FOOT-NO SURGERY) - GASTROINTESTINAL Hx Gastrointestinal Disorders: No Other/Comment: colon CA - GENITOURINARY/GYNECOLOGICAL Hx Genitourinary Disorders: No - PSYCHIATRIC Hx Psychophysiologic Disorder: No Hx Substance Use: No - SURGICAL HISTORY Hx Surgeries: Yes Other/Comment: HX: SOME TYPE OF THYROID SURGERY- PT. NOT SURE IF TOTAL. colectomy - ANESTHESIA Hx Anesthesia: Yes Hx Anesthesia Reactions: No Hx Malignant Hyperthermia: No Has any member of the family had a problem w/ anesthesia?: No Meds Allergies/Adverse Reactions: Allergies Allergy/AdvReac Type Severity Reaction Status Date / Time No Known Allergies Allergy Verified 09/16/17 12:02 Physical Exam - Constitutional Appears: No Acute Distress - Eye Exam Eye Exam: EOMI, Normal appearance, PERRL Pupil Exam: NORMAL ACCOMODATION, PERRL - Respiratory Exam Respiratory Exam: Clear to Auscultation Bilateral, NORMAL BREATHING PATTERN - Cardiovascular Exam Cardiovascular Exam: REGULAR RHYTHM - GI/Abdominal Exam GI & Abdominal Exam: Normal Bowel Sounds, Soft. absent: Tenderness Additional comments: open hemtoma in midline of abdomen on previous surgical scar - Neurological Exam Neurological exam: Alert, CN II-XII Intact, Normal Gait, Oriented x3, Reflexes Normal - Psychiatric Exam Psychiatric exam: Normal Affect, Normal Mood Results - Vital Signs Recent Vital Signs: Last Vital Signs Temp 97.2 F L 10/07/17 18:41 Pulse 66 10/07/17 20:19 Resp 20 10/07/17 18:41 BP 143/64 10/07/17 18:41 Pulse Ox 96 10/07/17 18:41 - Labs Result Diagrams: 10/07/17 05:59 10/07/17 05:59 Labs: Laboratory Results - last 24 hr 10/07/17 10/07/17 10/07/17 05:59 05:59 05:59 WBC 7.3 RBC 2.77 L Hgb 8.5 L Hct 24.7 L MCV 89.4 MCH 30.7 MCHC 34.4 RDW 15.9 H Plt Count 399 MPV 6.3 L Neut % (Auto) 74.8 Lymph % (Auto) 14.9 L Davis % (Auto) 7.5 Eos % (Auto) 1.8 Baso % (Auto) 1.0 Neut # 5.4 Lymph # 1.1 Davis # 0.5 Eos # 0.1 Baso # 0.1 PT 22.4 H INR 2.0 Sodium 134 Potassium 4.5 Chloride 99 Carbon Dioxide 29 Anion Gap 10 BUN 16 Creatinine 1.0 Est GFR ( Amer) > 60 Est GFR (Non-Af Amer) 53 POC Glucose (mg/dL) Random Glucose 99 Calcium 7.8 L Total Bilirubin 0.4 AST 51 H D ALT 21 Alkaline Phosphatase 70 Total Protein 6.2 L Albumin 3.1 L D Globulin 3.1 Albumin/Globulin Ratio 1.0 Urine Color Urine Clarity Urine pH Ur Specific [place] Urine Protein Urine Glucose (UA) Urine Ketones Urine Blood Urine Nitrate Urine Bilirubin Urine Urobilinogen Ur Leukocyte Esterase Urine WBC (Auto) Urine RBC (Auto) Ur Squamous Epith Cells Urine Bacteria Blood Type Antibody Screen 10/07/17 10/07/17 10/07/17 09:52 10:51 21:07 WBC RBC Hgb Hct MCV MCH MCHC RDW Plt Count MPV Neut % (Auto) Lymph % (Auto) Davis % (Auto) Eos % (Auto) Baso % (Auto) Neut # Lymph # Davis # Eos # Baso # PT INR Sodium Potassium Chloride Carbon Dioxide Anion Gap BUN Creatinine Est GFR ( Amer) Est GFR (Non-Af Amer) POC Glucose (mg/dL) 104 Random Glucose Calcium Total Bilirubin AST ALT Alkaline Phosphatase Total Protein Albumin Globulin Albumin/Globulin Ratio Urine Color Straw Urine Clarity Clear Urine pH 6.0 Ur Specific [place] 1.010 Urine Protein Negative Urine Glucose (UA) Normal Urine Ketones Negative Urine Blood 1+ H Urine Nitrate Negative Urine Bilirubin Negative Urine Urobilinogen Normal Ur Leukocyte Esterase Neg Urine WBC (Auto) 2 Urine RBC (Auto) 4 H Ur Squamous Epith Cells 1 Urine Bacteria Rare Blood Type O POSITIVE Antibody Screen Negative Assessment & Plan (1) Abnormal surgical wound Status: Acute (2) Wound dehiscence Status: Acute (3) DVT (deep venous thrombosis) Status: Acute (4) Mass of colon Status: Acute (5) Status post colectomy Status: Acute
--- NOTE | 2017-10-08 00:27 | OP ---
PROCEDURE DATE: 10/07/2017 PREOPERATIVE DIAGNOSES: Wound hematoma, possible wound dehiscence. PROCEDURE: Exploration of wound and evacuation of hematoma. SURGEON: Xavier Miner Jr., MD. ASSISTANTS: Dr. Nolan Alberto and Dr. Manrique. ANESTHESIA ADMINISTERED BY: Dr. Alvarez. INDICATIONS: The patient is an elderly woman who underwent low anterior resection previously. She presented this morning with acute pain in the wound, bleeding from the wound, and an overt hematoma. OPERATIVE FINDINGS: This was an acute hematoma of the abdominal wall. However, we were unable to identify a bleeding vessel on the detailed inspection of the wound. We buffed up the size of the wound. We evacuated all the hematoma. We sprayed peroxide in the wound well. With that finding, it is clearly a culprit vessel with spot of bleeding. We then placed thrombin throughout the entire wound and closed again with skin clips after placing some sutures in between. The operation carried out was wound exploration and control of bleeding. In addition, the patient is on Coumadin and has an INR of 2.0 today. She tolerated the procedure uneventfully. There was no acute blood loss during the procedure, but the wound hematoma less than about 500 mL. Xavier Miner Jr., MD
[2017-10-08] MEDS: Levothyroxine 100 MCG TAB PO SCH (06:00)
[2017-10-08] MEDS: metroNIDAZOLE IV 500 mg/100 ml 500 MG/100 ML BAG IVPB SCH ×3 (06:01→21:11)
[2017-10-08] MEDS: Sodium Chloride 0.9% 1,000 ML IV SCH ×2 (06:50→21:11)
[2017-10-08 07:32] LABS: HEMOGLOBIN 8.1 g/dL (11.0-16.0); MEAN CELL VOLUME 89.6 fL (81.0-99.0); MEAN CORPUSCULAR HEMOGLOBIN 30.7 pg (27.0-31.0); MEAN CORPUSCULAR HGB CONC 34.2 g/dL (33.0-37.0); MEAN PLATELET VOLUME 6.6 fL (7.2-11.7); RBC 2.64 Mil/uL (3.80-5.20); WHITE BLOOD COUNT 6.1 K/uL (4.8-10.8)
[2017-10-08] MEDS: Lactated Ringer's 1,000 ML IV SCH (08:22)
[2017-10-08] MEDS ORDERED: Enoxaparin 40 mg Syringe SC SCH (10:00)
--- NOTE | 2017-10-08 12:18 | CP.PCM.PN ---
Subjective - Date & Time of Evaluation Date of Evaluation: 10/08/17 Time of Evaluation: 08:15 - Subjective Subjective: General Surgery Note for Dr. Miner Patient seen and examined at bedside. No acute event overnight. She is s/p abdominal wall hematoma evacuation POD#1. Patient is feeling well today with no complaints. Pain is controlled. She is tolerating diet. Objective - Vital Signs/Intake and Output Vital Signs (last 24 hours): Temp Pulse Resp BP Pulse Ox 98.5 F 88 18 113/58 L 99 10/08/17 08:14 10/08/17 08:14 10/08/17 08:14 10/08/17 08:14 10/08/17 08:14 - Medications Medications: Current Medications Docusate Sodium (Colace) 100 mg PO BID [facility] Last Admin: 10/08/17 11:55 Dose: 100 mg Metronidazole (Flagyl) 500 mg in 100 mls @ 100 mls/hr IVPB Q8 [facility] Last Admin: 10/08/17 06:01 Dose: 100 mls/hr Sodium Chloride (Sodium Chloride 0.9%) 1,000 mls @ 100 mls/hr IV .Q10H [facility] Last Admin: 10/08/17 06:50 Dose: Not Given Ceftriaxone Sodium 1 gm/ (Sodium Chloride) 100 mls @ 100 mls/hr IVPB DAILY [facility] Last Admin: 10/08/17 09:21 Dose: 100 mls/hr Lactated Ringer's (Lactated Ringer's) 1,000 mls @ 125 mls/hr IV .Q8H [facility] Levothyroxine Sodium (Synthroid) 100 mcg PO DAILY@0630 [facility] Last Admin: 10/08/17 06:00 Dose: 100 mcg Losartan Potassium (Cozaar) 50 mg PO DAILY [facility] Last Admin: 10/08/17 09:22 Dose: 50 mg Oxycodone/Acetaminophen (Percocet 5/325 Mg Tab) 1 tab PO Q4H PRN PRN Reason: Pain, moderate (4-7) Stop: 10/10/17 15:46 - Labs Labs: 10/08/17 07:24 10/07/17 05:59 PT 22.4 SECONDS (9.7-12.2) H 10/07/17 05:59 INR 2.0 10/07/17 05:59 - Constitutional Appears: No Acute Distress - Eye Exam Eye Exam: Normal appearance - ENT Exam ENT Exam: Mucous Membranes Moist - Respiratory Exam Respiratory Exam: NORMAL BREATHING PATTERN - Cardiovascular Exam Cardiovascular Exam: REGULAR RHYTHM - GI/Abdominal Exam GI & Abdominal Exam: Soft, Normal Bowel Sounds. absent: Tenderness Additional comments: abdominal dressing clean,dry intact - Neurological Exam Neurological Exam: Alert, Awake, Oriented x3 - Psychiatric Exam Psychiatric exam: Normal Affect, Normal Mood - Skin Skin Exam: Dry, Intact, Normal Color, Warm Assessment and Plan - Assessment and Plan (Free Text) Plan: 82 F s/p abdominal wall hematoma evacuation POD#1 -HOLD anticogulation -f/u LE venous doppler -Dressing change tomorrow -Analgesics PRN -Monitor for bleeding -Discussed with Dr. Isidra Alberto PGY1
--- NOTE | 2017-10-08 23:59 | CP.PCM.PN ---
Subjective - Date & Time of Evaluation Date of Evaluation: 10/08/17 Time of Evaluation: 18:00 - Subjective Subjective: Pt seen and evaluted, is post op and recovering, no chest pain, no cough Objective - Vital Signs/Intake and Output Vital Signs (last 24 hours): Temp Pulse Resp BP Pulse Ox 98.6 F 77 18 125/64 96 10/08/17 15:33 10/08/17 16:00 10/08/17 15:33 10/08/17 15:33 10/08/17 15:33 Intake and Output: 10/08/17 10/09/17 18:59 06:59 Intake Total 300 Balance 300 - Medications Medications: Current Medications Docusate Sodium (Colace) 100 mg PO BID [facility] Last Admin: 10/08/17 18:04 Dose: 100 mg Metronidazole (Flagyl) 500 mg in 100 mls @ 100 mls/hr IVPB Q8 [facility] Last Admin: 10/08/17 21:11 Dose: 100 mls/hr Sodium Chloride (Sodium Chloride 0.9%) 1,000 mls @ 100 mls/hr IV .Q10H [facility] Last Admin: 10/08/17 21:11 Dose: Not Given Ceftriaxone Sodium 1 gm/ (Sodium Chloride) 100 mls @ 100 mls/hr IVPB DAILY [facility] Last Admin: 10/08/17 09:21 Dose: 100 mls/hr Lactated Ringer's (Lactated Ringer's) 1,000 mls @ 125 mls/hr IV .Q8H [facility] Levothyroxine Sodium (Synthroid) 100 mcg PO DAILY@0630 [facility] Last Admin: 10/08/17 06:00 Dose: 100 mcg Losartan Potassium (Cozaar) 50 mg PO DAILY [facility] Last Admin: 10/08/17 09:22 Dose: 50 mg Oxycodone/Acetaminophen (Percocet 5/325 Mg Tab) 1 tab PO Q4H PRN PRN Reason: Pain, moderate (4-7) Stop: 10/10/17 15:46 Last Admin: 10/08/17 15:46 Dose: 1 tab - Labs Labs: 10/08/17 07:24 10/07/17 05:59 PT 22.4 SECONDS (9.7-12.2) H 10/07/17 05:59 INR 2.0 10/07/17 05:59 - Constitutional Appears: No Acute Distress - Head Exam Head Exam: ATRAUMATIC, NORMAL INSPECTION, NORMOCEPHALIC - Eye Exam Eye Exam: EOMI, Normal appearance, PERRL Pupil Exam: NORMAL ACCOMODATION, PERRL - Respiratory Exam Respiratory Exam: Clear to Ausculation Bilateral, NORMAL BREATHING PATTERN - Cardiovascular Exam Cardiovascular Exam: REGULAR RHYTHM, +S1, +S2. absent: Murmur - GI/Abdominal Exam GI & Abdominal Exam: Soft, Normal Bowel Sounds. absent: Tenderness - Rectal Exam Rectal Exam: Deferred Assessment and Plan (1) Abnormal surgical wound Status: Acute (2) Wound dehiscence Status: Acute (3) DVT (deep venous thrombosis) Status: Acute (4) Mass of colon Status: Acute (5) Status post colectomy Status: Acute
[2017-10-09] MEDS: Sodium Chloride 0.9% 1,000 ML IV SCH ×3 (02:30→12:30)
[2017-10-09] MEDS: metroNIDAZOLE IV 500 mg/100 ml 500 MG/100 ML BAG IVPB SCH (05:43)
[2017-10-09] MEDS: Levothyroxine 100 MCG TAB PO SCH (05:46)
--- NOTE | 2017-10-09 10:05 | VASCLAB ---
PROCEDURE: Lower Extremity Venous Duplex Exam. HISTORY: bled on coumadin/ PRIORS: None. TECHNIQUE: Bilateral common femoral, femoral, popliteal and posterior tibial, peroneal and great saphenous veins were evaluated. Flow was assessed with color Doppler, compressibility, assessment of phasic flow and augmentation response. Report prepared by PAWAN Morelos, RVT FINDINGS: RIGHT: 1. Common Femoral Vein: 1.1. Compressibility - Fully compressible: Thrombus - None : Flow - Phasic: Augmentation -Normal: Reflux - None. 2. Femoral Vein: 2.1. Compressibility - Fully compressible: Thrombus - None : Flow - Phasic: Augmentation -Normal: Reflux - None. 3. Popliteal Vein: 3.1. Compressibility - Fully compressible: Thrombus - None : Flow - Phasic: Augmentation -Normal: Reflux - None. 4. Posterior Tibial Vein: 4.1. Compressibility - Fully compressible: Thrombus - None: Flow - Phasic: Augmentation -Normal: Reflux - None. 5. Peroneal Vein: 5.1. Compressibility - Partial: Thrombus - Acute: Flow - Absent : Augmentation -None: Reflux - None. 6. Great Saphenous Vein: 6.1. Compressibility - Fully compressible: Thrombus - None: Flow - Phasic: Augmentation - Normal: Reflux - None. LEFT: 1. Common Femoral Vein: 1.1. Compressibility - Fully compressible: Thrombus - None: Flow - Phasic: Augmentation -Normal: Reflux - None. 2. Femoral Vein: 2.1. Compressibility - Fully compressible: Thrombus - None: Flow - Phasic: Augmentation -Normal: Reflux - None. 3. Popliteal Vein: 3.1. Compressibility - Fully compressible: Thrombus - None : Flow - Phasic: Augmentation -Normal: Reflux - None. 4. Posterior Tibial Vein: 4.1. Compressibility - Fully compressible: Thrombus - None: Flow - Phasic: Augmentation -Normal: Reflux - None. 5. Peroneal Vein: 5.1. Compressibility - Fully compressible: Thrombus - None: Flow - Phasic: Augmentation -Normal: Reflux - None. 6. Great Saphenous Vein: 6.1. Compressibility - Fully compressible: Thrombus - None: Flow - Phasic: Augmentation - Normal: Reflux - None. OTHER FINDINGS: Anechoic, avascular structure in the left popliteal fossa measuring 3.1 x 1.0 cm most compatible with a Grimes's cyst. IMPRESSION: Stable appearance of right peroneal deep venous thrombosis. There is no significant change compared to last study of 09/24/17. GARRET Caro notified about the findings.
[2017-10-09] MEDS ORDERED: Ciprofloxacin 200mg/100ml D5W 100 ML IVPB SCH (10:30)
[2017-10-09] MEDS ORDERED: HEPARIN-NS 5,000 UNITS/500 ML 5,000 UNIT/500 ML BAG IV ONE (12:18)
[2017-10-09] MEDS ORDERED: Iodixanol 320 MG/ML 200 ML BOTTLE IV ONE (12:18)
[2017-10-09] MEDS ORDERED: Lactated Ringer's 1,000 ML IV ONE ×2 (13:05→13:56)
[2017-10-09] MEDS ORDERED: Etomidate 20 mg/10ml Inj IV ONE (13:13)
[2017-10-09] MEDS ORDERED: Propofol 10 mg/ml Inj (20 ML) ONE (13:17)
--- NOTE | 2017-10-09 14:05 | PCM.SURG1 ---
Surgeon's Initial Post Op Note - Surgeon's Notes Surgeon: Isidra School Photographer: [id number] Type of Anesthesia: IV Sedation, Local Pre-Operative Diagnosis: Venous thrombus, Colon Cancer, recent hemorrhage Operative Findings: good IVC filter placement Post-Operative Diagnosis: Venous thrombus, Colon Cancer, recent hemorrhage Operation Performed: IVC filter placement Specimen/Specimens Removed: N/A Estimated Blood Loss: EBL {In ML}: 10 Blood Products Given: N/A Drains Used: No Drains Post-Op Condition: Good Date of Surgery/Procedure: 10/09/17 Time of Surgery/Procedure: 13:00
[2017-10-09] MEDS: Lactated Ringer's 1,000 ML IV SCH (15:00)
--- NOTE | 2017-10-09 15:04 | RAD ---
PROCEDURE: Fluoroscopy up to 1 hour HISTORY: VENOUS THROMBOSIS COMPARISON: None TECHNIQUE: Total fluoroscopic time (continuous mode) utilized during the procedure: 64.7 seconds. FINDINGS: Submitted images from the current procedure: 5.0 Total exam DLP: (mGy): 15.21 IMPRESSION: Less than 1 hr fluoroscopic time utilized during performance of the procedure.
[2017-10-09] MEDS ORDERED: Magnesium Hydroxide Susp 30 ml UD PO PRN (21:14)
[2017-10-09] MEDS ORDERED: Nitroglycerin 2% Ointment Foilpak UD TOP ONE (21:30)
--- NOTE | 2017-10-09 23:15 | CP.PCM.PN ---
Subjective - Date & Time of Evaluation Date of Evaluation: 10/09/17 Time of Evaluation: 18:00 - Subjective Subjective: Pt has psedomonas in wound cultures, she is on cipro antibiotic, afebrile Objective - Vital Signs/Intake and Output Vital Signs (last 24 hours): Temp Pulse Resp BP Pulse Ox 97.6 F 53 L 18 154/71 H 97 10/09/17 20:37 10/09/17 20:37 10/09/17 20:37 10/09/17 20:37 10/09/17 20:37 Intake and Output: 10/09/17 10/10/17 18:59 06:59 Intake Total 1050 Balance 1050 - Medications Medications: Current Medications Docusate Sodium (Colace) 100 mg PO BID [facility] Last Admin: 10/09/17 17:17 Dose: 100 mg Levothyroxine Sodium (Synthroid) 100 mcg PO DAILY@0630 [facility] Last Admin: 10/09/17 05:46 Dose: Not Given Losartan Potassium (Cozaar) 50 mg PO DAILY [facility] Last Admin: 10/09/17 09:24 Dose: 50 mg Magnesium Hydroxide (Milk Of Magnesia) 30 ml PO DAILY PRN PRN Reason: Constipation Last Admin: 10/09/17 21:43 Dose: 30 ml Oxycodone/Acetaminophen (Percocet 5/325 Mg Tab) 1 tab PO Q4H PRN PRN Reason: Pain, moderate (4-7) Stop: 10/10/17 15:46 Last Admin: 10/08/17 15:46 Dose: 1 tab - Labs Labs: 10/08/17 07:24 10/07/17 05:59 PT 22.4 SECONDS (9.7-12.2) H 10/07/17 05:59 INR 2.0 10/07/17 05:59 - Constitutional Appears: No Acute Distress - Head Exam Head Exam: ATRAUMATIC, NORMAL INSPECTION, NORMOCEPHALIC - Eye Exam Eye Exam: EOMI, Normal appearance, PERRL Pupil Exam: NORMAL ACCOMODATION, PERRL - Respiratory Exam Respiratory Exam: Clear to Ausculation Bilateral, NORMAL BREATHING PATTERN - Cardiovascular Exam Cardiovascular Exam: REGULAR RHYTHM, +S1, +S2. absent: Murmur - GI/Abdominal Exam GI & Abdominal Exam: Soft, Normal Bowel Sounds. absent: Tenderness Assessment and Plan (1) Abnormal surgical wound Status: Acute (2) Wound dehiscence Assessment & Plan: wound care antibiotics monitor pt Status: Acute (3) DVT (deep venous thrombosis) Status: Acute (4) Mass of colon Status: Acute (5) Status post colectomy Status: Acute
--- NOTE | 2017-10-10 02:08 | OP ---
PROCEDURE DATE: 10/09/2017 PREOPERATIVE DIAGNOSES: Hematoma of abdominal wall; deep vein thrombosis, right leg. PROCEDURE CARRIED OUT: Placement of [place] removable filter via the right femoral vein with C-arm fluoroscopy, ultrasound-guided puncture and micropuncture technique. SURGEON: Xavier Miner Jr., M.D. [employer] SUPERVISOR: Dr. Manrique. ANESTHESIOLOGIST: Mr. Lockett. INDICATIONS: Patient is an 82-year-old woman with deep vein thrombosis involving the right calf, initially treated with anticoagulation, who came in with a large abdominal wall hematoma which required surgical exploration. There was no dehiscence of the hematoma which was . Because of this, the anticoagulation was reversed and the ultrasound, on repeat exam confirmed the presence of the clot in the leg, although it had not extended to the popliteal or femoral and a filter was placed in the level of the bifurcation. DESCRIPTION OF PROCEDURE: Patient was given local anesthesia. Using ultrasound guidance and micropuncture technique, the right common femoral vein was punctured. Under fluoroscopic control, a variety of wires were used to eventually place an Amplatz wire into the superior vena cava. Sheath dilator was passed over this. A venacavogram was taken which showed the location of the confluence of the iliac veins. The filter was released adjacent to the level of the renal veins with slight tilt to the left. Pressure was applied to the groin. The procedure was terminated. Blood loss of the procedure was less than 10 mL. Operation carried out as placement of Bard [place] removable filter right femoral vein with C-arm fluoroscopy and ultrasound-guided puncture. Ultrasound images from the groin showed the vein was 14 mm in diameter with normal compressibility and no intraluminal thrombosis. Xavier Miner Jr., MD
[2017-10-10] MEDS: Levothyroxine 100 MCG TAB PO SCH (06:04)
--- NOTE | 2017-10-10 07:05 | CARD ---
APPROVED REPORT EKG Measurement Heart [id number] MI [id number] <Conclusion> Normal sinus rhythm with sinus arrhythmia Left axis deviation Septal infarct, age undetermined Abnormal ECG
--- NOTE | 2017-10-10 10:24 | CP.PCM.PN ---
Subjective - Date & Time of Evaluation Date of Evaluation: 10/10/17 Time of Evaluation: 06:50 - Subjective Subjective: General Surgery Note for Dr. Miner Patient seen and examined at bedside. No acute event overnight. She is s/p abdominal wall hematoma evacuation POD#3 and s/p IVC filter placement POD #1. Pain is controlled. She is tolerating diet. No complaints today. Objective - Vital Signs/Intake and Output Vital Signs (last 24 hours): Temp Pulse Resp BP Pulse Ox 98.6 F 54 L 20 145/61 94 L 10/09/17 23:15 10/10/17 03:30 10/09/17 23:15 10/09/17 23:15 10/09/17 23:15 - Medications Medications: Current Medications Docusate Sodium (Colace) 100 mg PO BID [facility] Last Admin: 10/10/17 09:00 Dose: 100 mg Levothyroxine Sodium (Synthroid) 100 mcg PO DAILY@0630 [facility] Last Admin: 10/10/17 06:04 Dose: 100 mcg Losartan Potassium (Cozaar) 50 mg PO DAILY [facility] Last Admin: 10/10/17 09:00 Dose: 50 mg Magnesium Hydroxide (Milk Of Magnesia) 30 ml PO DAILY PRN PRN Reason: Constipation Last Admin: 10/09/17 21:43 Dose: 30 ml Oxycodone/Acetaminophen (Percocet 5/325 Mg Tab) 1 tab PO Q4H PRN PRN Reason: Pain, moderate (4-7) Stop: 10/10/17 15:46 Last Admin: 10/08/17 15:46 Dose: 1 tab - Labs Labs: 10/08/17 07:24 10/07/17 05:59 PT 22.4 SECONDS (9.7-12.2) H 10/07/17 05:59 INR 2.0 10/07/17 05:59 - Constitutional Appears: No Acute Distress - Head Exam Head Exam: ATRAUMATIC, NORMOCEPHALIC - Eye Exam Eye Exam: Normal appearance - ENT Exam ENT Exam: Mucous Membranes Moist - Respiratory Exam Respiratory Exam: NORMAL BREATHING PATTERN - Cardiovascular Exam Cardiovascular Exam: REGULAR RHYTHM - GI/Abdominal Exam GI & Abdominal Exam: Soft, Normal Bowel Sounds. absent: Tenderness Additional comments: incision clean, dry, intact - Extremities Exam Extremities Exam: Normal Capillary Refill. absent: Calf Tenderness Additional comments: femoral site - clean dry intact with evidence of hematoma or bleeding - Neurological Exam Neurological Exam: Alert, Awake, Oriented x3 - Psychiatric Exam Psychiatric exam: Normal Affect, Normal Mood - Skin Skin Exam: Dry, Intact, Normal Color, Warm Assessment and Plan - Assessment and Plan (Free Text) Plan: 82 F s/p abdominal wall hematoma evacuation POD#3, s/p IVC filter placement POD #1 -may discontinue anticogulation -Analgesics PRN -Discussed with Dr. Isidra Alberto PGY1
[2017-10-10 13:55] LABS: BASO # 0.1 K/uL (0.0-0.2); BASO % 0.9 % (0.0-2.0); EOS # 0.2 K/uL (0.0-0.7); EOS % 2.8 % (0.0-4.0); HEMOGLOBIN 9.2 g/dL (11.0-16.0); LYMPH # 1.7 K/uL (1.0-4.3); LYMPH % 25.7 % (20.0-40.0); MEAN CELL VOLUME 89.1 fL (81.0-99.0); MEAN CORPUSCULAR HEMOGLOBIN 30.3 pg (27.0-31.0); MEAN PLATELET VOLUME 6.4 fL (7.2-11.7); MONO # 0.6 K/uL (0.0-0.8); MONO % 9.6 % (0.0-10.0); RBC 3.05 Mil/uL (3.80-5.20); RED CELL DISTRIBUTION WIDTH 16.4 % (11.5-14.5); WHITE BLOOD COUNT 6.6 K/uL (4.8-10.8)
--- NOTE | 2017-10-10 22:52 | CP.PCM.PN ---
Subjective - Date & Time of Evaluation Date of Evaluation: 10/10/17 Time of Evaluation: 18:10 - Subjective Subjective: Patient seen and examined at bedside. Pt is doing better, no fever, no SOB, UA is neg, on Cipro, possible discharge tommorow, No acute event overnight. She is s/p abdominal wall hematoma evacuation POD#3 and s/p IVC filter placement POD # 1. Pain is controlled. She is tolerating diet. No complaints today. Objective - Vital Signs/Intake and Output Vital Signs (last 24 hours): Temp Pulse Resp BP Pulse Ox 98.5 F 64 20 151/66 H 96 10/10/17 15:00 10/10/17 15:00 10/10/17 15:00 10/10/17 15:00 10/10/17 15:00 Intake and Output: 10/10/17 10/11/17 18:59 06:59 Intake Total 350 300 Balance 350 300 - Medications Medications: Current Medications Docusate Sodium (Colace) 100 mg PO BID [facility] Last Admin: 10/10/17 17:25 Dose: 100 mg Levothyroxine Sodium (Synthroid) 100 mcg PO DAILY@0630 [facility] Last Admin: 10/10/17 06:04 Dose: 100 mcg Losartan Potassium (Cozaar) 50 mg PO DAILY [facility] Last Admin: 10/10/17 09:00 Dose: 50 mg Magnesium Hydroxide (Milk Of Magnesia) 30 ml PO DAILY PRN PRN Reason: Constipation Last Admin: 10/09/17 21:43 Dose: 30 ml - Labs Labs: 10/10/17 13:47 10/07/17 05:59 PT 22.4 SECONDS (9.7-12.2) H 10/07/17 05:59 INR 2.0 10/07/17 05:59 - Constitutional Appears: No Acute Distress - Head Exam Head Exam: ATRAUMATIC, NORMAL INSPECTION, NORMOCEPHALIC - Eye Exam Eye Exam: EOMI, Normal appearance, PERRL Pupil Exam: NORMAL ACCOMODATION, PERRL - Respiratory Exam Respiratory Exam: Clear to Ausculation Bilateral, NORMAL BREATHING PATTERN - Cardiovascular Exam Cardiovascular Exam: REGULAR RHYTHM, +S1, +S2. absent: Murmur - GI/Abdominal Exam GI & Abdominal Exam: Soft, Normal Bowel Sounds. absent: Tenderness Assessment and Plan (1) Abnormal surgical wound Status: Acute (2) Wound dehiscence Status: Acute (3) DVT (deep venous thrombosis) Status: Acute (4) Mass of colon Status: Acute (5) Status post colectomy Status: Acute
[2017-10-11 01:16] VITALS: TEMP 98.1; O2SAT 98
[2017-10-11] MEDS: Levothyroxine 100 MCG TAB PO SCH (06:05)
[2017-10-11 08:17] LABS: BASO # 0.1 K/uL (0.0-0.2); BASO % 1.1 % (0.0-2.0); EOS # 0.2 K/uL (0.0-0.7); EOS % 2.7 % (0.0-4.0); HEMOGLOBIN 8.7 g/dL (11.0-16.0); LYMPH # 1.7 K/uL (1.0-4.3); LYMPH % 28.7 % (20.0-40.0); MEAN CELL VOLUME 89.2 fL (81.0-99.0); MEAN CORPUSCULAR HEMOGLOBIN 30.9 pg (27.0-31.0); MEAN CORPUSCULAR HGB CONC 34.6 g/dL (33.0-37.0); MEAN PLATELET VOLUME 6.9 fL (7.2-11.7); MONO # 0.6 K/uL (0.0-0.8); MONO % 10.1 % (0.0-10.0); NEUT # 3.4 K/uL (1.8-7.0); NEUT % 57.4 % (50.0-75.0); RBC 2.8 Mil/uL (3.80-5.20); RED CELL DISTRIBUTION WIDTH 16.1 % (11.5-14.5); WHITE BLOOD COUNT 5.9 K/uL (4.8-10.8)
[2017-10-11 08:31] LABS: BLOOD UREA NITROGEN 9 mg/dL (7-17); CALCIUM 7.8 mg/dl (8.6-10.4); GFR AFRICAN-AMERICAN > 60; GFR NON-AFRICAN AMERICAN > 60
[2017-10-11 09:03] VITALS: BP 139/70; PULSE 69; RESP 18
--- NOTE | 2017-10-11 10:57 | CP.PCM.PN ---
Subjective - Date & Time of Evaluation Date of Evaluation: 10/11/17 Time of Evaluation: 07:00 - Subjective Subjective: General Surgery Dr. Miner Pt S&E @bedside. NAEO. Reports some mild abd discomfort but otherwise no complaints. denies F/C, N/V. tolerating diet. Objective - Vital Signs/Intake and Output Vital Signs (last 24 hours): Temp Pulse Resp BP Pulse Ox 98.1 F 69 18 139/70 98 10/11/17 09:01 10/11/17 09:01 10/11/17 09:01 10/11/17 09:01 10/11/17 09:01 Intake and Output: 10/11/17 10/11/17 06:59 18:59 Intake Total 300 Balance 300 - Medications Medications: Current Medications Docusate Sodium (Colace) 100 mg PO BID [facility] Last Admin: 10/11/17 10:03 Dose: 100 mg Levothyroxine Sodium (Synthroid) 100 mcg PO DAILY@0630 [facility] Last Admin: 10/11/17 06:05 Dose: 100 mcg Losartan Potassium (Cozaar) 50 mg PO DAILY [facility] Last Admin: 10/11/17 10:03 Dose: 50 mg Magnesium Hydroxide (Milk Of Magnesia) 30 ml PO DAILY PRN PRN Reason: Constipation Last Admin: 10/09/17 21:43 Dose: 30 ml - Labs Labs: 10/11/17 07:51 10/11/17 07:51 PT 22.4 SECONDS (9.7-12.2) H 10/07/17 05:59 INR 2.0 10/07/17 05:59 - Constitutional Appears: Non-toxic, No Acute Distress - Head Exam Head Exam: NORMAL INSPECTION - Eye Exam Eye Exam: Normal appearance - ENT Exam ENT Exam: Mucous Membranes Moist - Respiratory Exam Respiratory Exam: NORMAL BREATHING PATTERN. absent: Accessory Muscle Use, Respiratory Distress - Cardiovascular Exam Cardiovascular Exam: absent: Bradycardia, Tachycardia - GI/Abdominal Exam GI & Abdominal Exam: Soft. absent: Distended, Guarding, Tenderness, Rebound Additional comments: dressing c/d/i - Exam Additional comments: groin site c/d/i no hematoma present - Neurological Exam Neurological Exam: Alert, Awake, Oriented x3 - Psychiatric Exam Psychiatric exam: Normal Affect, Normal Mood - Skin Skin Exam: Dry, Intact, Normal Color, Warm Assessment and Plan - Assessment and Plan (Free Text) Assessment: 82 y/o F POD#4 s/p abdominal wall hematoma evacuation, POD#2 s/p IVC filter placement - cont pain management PRN - ADAT - encourage OOB to chair/Amb/IS use - pt cleared for discharge from surgical standpoint Pt discussed w/ Dr. Isidra Flores DO PGY2
--- NOTE | 2017-10-11 18:02 | CP.PCM.PN ---
Subjective - Date & Time of Evaluation Date of Evaluation: 10/11/17 Time of Evaluation: 10:45 Objective - Vital Signs/Intake and Output Vital Signs (last 24 hours): Temp Pulse Resp BP Pulse Ox 98.1 F 69 18 139/70 98 10/11/17 09:01 10/11/17 09:01 10/11/17 09:01 10/11/17 09:01 10/11/17 09:01 Intake and Output: 10/11/17 10/11/17 06:59 18:59 Intake Total 300 Balance 300 - Labs Labs: 10/11/17 07:51 10/11/17 07:51 PT 22.4 SECONDS (9.7-12.2) H 10/07/17 05:59 INR 2.0 10/07/17 05:59
--- NOTE | 2017-10-11 21:55 | CP.PCM.DIS ---
Provider - Provider Date of Admission: 10/07/17 10:52 Attending physician: Christ Butt MD Time Spent in preparation of Discharge (in minutes): 45 Diagnosis - Discharge Diagnosis (1) Abnormal surgical wound Status: Acute (2) Wound dehiscence Status: Acute (3) DVT (deep venous thrombosis) Status: Acute (4) Mass of colon Status: Acute (5) Status post colectomy Status: Acute Hospital Course - Lab Results Lab Results: Micro Results 10/07/17 15:00 Abdomen Gram Stain - Final 10/07/17 15:00 Abdomen Wound Culture - Final Pseudomonas Aeruginosa Most Recent Lab Values WBC 5.9 K/uL (4.8-10.8) 10/11/17 07:51 RBC 2.80 Mil/uL (3.80-5.20) L 10/11/17 07:51 Hgb 8.7 g/dL (11.0-16.0) L 10/11/17 07:51 Hct 25.0 % (34.0-47.0) L 10/11/17 07:51 MCV 89.2 fL (81.0-99.0) 10/11/17 07:51 MCH 30.9 pg (27.0-31.0) 10/11/17 07:51 MCHC 34.6 g/dL (33.0-37.0) 10/11/17 07:51 RDW 16.1 % (11.5-14.5) H 10/11/17 07:51 Plt Count 329 K/uL (130-400) 10/11/17 07:51 MPV 6.9 fL (7.2-11.7) L 10/11/17 07:51 Neut % (Auto) 57.4 % (50.0-75.0) 10/11/17 07:51 Lymph % (Auto) 28.7 % (20.0-40.0) 10/11/17 07:51 [place] % (Auto) 10.1 % (0.0-10.0) H 10/11/17 07:51 Eos % (Auto) 2.7 % (0.0-4.0) 10/11/17 07:51 Baso % (Auto) 1.1 % (0.0-2.0) 10/11/17 07:51 Neut # 3.4 K/uL (1.8-7.0) 10/11/17 07:51 Lymph # 1.7 K/uL (1.0-4.3) 10/11/17 07:51 [place] # 0.6 K/uL (0.0-0.8) 10/11/17 07:51 Eos # 0.2 K/uL (0.0-0.7) 10/11/17 07:51 Baso # 0.1 K/uL (0.0-0.2) 10/11/17 07:51 PT 22.4 SECONDS (9.7-12.2) H 10/07/17 05:59 INR 2.0 10/07/17 05:59 Sodium 132 mmol/L (132-148) 10/11/17 07:51 Potassium 3.7 mmol/L (3.6-5.2) 10/11/17 07:51 Chloride 102 mmol/L (98-107) 10/11/17 07:51 Carbon Dioxide 27 mmol/L (22-30) 10/11/17 07:51 Anion Gap 6 (10-20) L 10/11/17 07:51 BUN 9 mg/dL (7-17) 10/11/17 07:51 Creatinine 0.9 mg/dL (0.7-1.2) 10/11/17 07:51 Est GFR ( Amer) > 60 10/11/17 07:51 Est GFR (Non-Af Amer) > 60 10/11/17 07:51 POC Glucose (mg/dL) 104 mg/dL (65-110) 10/07/17 21:07 Random Glucose 84 mg/dL (65-105) 10/11/17 07:51 Calcium 7.8 mg/dl (8.6-10.4) L 10/11/17 07:51 Total Bilirubin 0.4 mg/dL (0.2-1.3) 10/07/17 05:59 AST 51 U/L (14-36) H D 10/07/17 05:59 ALT 21 U/L (9-52) 10/07/17 05:59 Alkaline Phosphatase 70 U/L (38-126) 10/07/17 05:59 Total Protein 6.2 g/dL (6.3-8.3) L 10/07/17 05:59 Albumin 3.1 g/dL (3.5-5.0) L D 10/07/17 05:59 Globulin 3.1 gm/dL (2.2-3.9) 10/07/17 05:59 Albumin/Globulin Ratio 1.0 (1.0-2.1) 10/07/17 05:59 Urine Color Straw (YELLOW) 10/07/17 09:52 Urine Clarity Clear (Clear) 10/07/17 09:52 Urine pH 6.0 (5.0-8.0) 10/07/17 09:52 Ur Specific [place] 1.010 (1.003-1.030) 10/07/17 09:52 Urine Protein Negative mg/dL (NEGATIVE) 10/07/17 09:52 Urine Glucose (UA) Normal mg/dL (Normal) 10/07/17 09:52 Urine Ketones Negative mg/dL (NEGATIVE) 10/07/17 09:52 Urine Blood 1+ (NEGATIVE) H 10/07/17 09:52 Urine Nitrate Negative (NEGATIVE) 10/07/17 09:52 Urine Bilirubin Negative (NEGATIVE) 10/07/17 09:52 Urine Urobilinogen Normal mg/dL (0.2-1.0) 10/07/17 09:52 Ur Leukocyte Esterase Neg Eduardo/uL (Negative) 10/07/17 09:52 Urine WBC (Auto) 2 /hpf (0-5) 10/07/17 09:52 Urine RBC (Auto) 4 /hpf (0-3) H 10/07/17 09:52 Ur Squamous Epith Cells 1 /hpf (0-5) 10/07/17 09:52 Urine Bacteria Rare (<OCC) 10/07/17 09:52 Blood Type O POSITIVE 10/07/17 10:51 Antibody Screen Negative 10/07/17 10:51 - Hospital Course Hospital Course: Patient seen and examined at bedside. Pt is doing better, no fever, no SOB, UA is neg, on Cipro, is for discharge today, No acute event overnight. She is s/p abdominal wall hematoma evacuation POD#4 and s/p IVC filter placement POD #2. Pain is controlled. She is tolerating diet. No complaints today. Discharge Exam - Head Exam Head Exam: NORMAL INSPECTION - Eye Exam Eye Exam: Normal appearance - ENT Exam ENT Exam: Mucous Membranes Moist - Respiratory Exam Respiratory Exam: Clear to PA & Lateral - Cardiovascular Exam Cardiovascular Exam: REGULAR RHYTHM, +S1, +S2 - GI/Abdominal Exam GI & Abdominal Exam: Normal Bowel Sounds Discharge Plan - Discharge Medications Prescriptions: Ferrous Sulfate 325 mg PO BID #30 tablet - Follow Up Plan Condition: STABLE Disposition: HOME/ ROUTINE Instructions: Gastrointestinal Bleeding (DC), Gastrointestinal Bleeding (GEN), Surgical Site Infections (DC), Acute Abdominal Pain (DC), Acute Abdominal Pain ( GEN), Wound Healing and Your Diet (DC), Wound Dehiscence (DC) Additional Instructions: please f/u with Dr. Butt office in 1 week Please f/u with Dr. Miner office in 2 weeks- call and make appointment abdominal dressing can be removed and leave to air or can place dressing ( either ok) continue medication as per Med. rec.
== END 2017-10-11 16:08 | disposition home or self-care (01) | DRG 908 ==
LOC: C.ER 04:36 → C.9E 10:52 → C.6T 13:56
PROVIDERS: ADMIT Internal Medicine; ATTEND Internal Medicine
PROC: 0W3F0ZZ Control Bleeding in Abdominal Wall, Open Approach (ICD-10-PCS; principal; 2017-10-07 14:15)
PROC: 06H03DZ Insertion of Intraluminal Device into Inferior Vena Cava, Percutaneous Approach (ICD-10-PCS; 2017-10-09)
DX: T81.30XA Disruption of wound, unspecified, initial encounter (principal); K91.871 Postprocedural hematoma of a digestive system organ or structure following other procedure; I82.4Z1 Acute embolism and thrombosis of unspecified deep veins of right distal lower extremity; E03.9 Hypothyroidism, unspecified; I10 Essential (primary) hypertension; Z79.01 Long term (current) use of anticoagulants; Z87.891 Personal history of nicotine dependence; Z85.038 Personal history of other malignant neoplasm of large intestine; M71.22 Synovial cyst of popliteal space [Baker], left knee

== ENCOUNTER 2018-10-01 08:10 | Day surgery (SDC) | payer MEDICARE ==
[2018-10-01 08:46] VITALS: BMI 29.0
[2018-10-01 09:00] VITALS: PULSE 81; RESP 19; TEMP 98.6; O2SAT 99
[2018-10-01] MEDS ORDERED: Propofol 10 mg/ml Inj (20 ML) ONE (10:08)
--- NOTE | 2018-10-01 10:18 | CP.SDSHP ---
Same Day Surgery H & P - History Proposed Procedure: colonoscopy Pre-Op Diagnosis: history of colon cancer - Previous Medical/Surgical History Cardiac: Hypertension - Allergies Allergies: Allergies No Known Allergies Allergy (Verified 10/01/18 08:45) - Physical Exam General Appearance: NAD Vital Signs: Vital Signs 10/01/18 08:49 Temperature 98.6 F Pulse Rate 81 Respiratory 19 Rate Blood Pressure 171/79 H O2 Sat by Pulse 99 Oximetry Mental Status: Alert & Oriented x3 Neuro: WNL Heart: WNL Lungs: WNL GI: WNL - {Optional Preform as Required} Abdomen: WNL - Impression Pt. Evaluated Today:Candidate for Anesthesia & Procedure: Yes - Date & Time Date: 10/01/18 Time: 10:18 Short Stay Discharge - Short Stay Discharge Admitting Diagnosis/Reason for Visit: PERSONAL HISTORY OF MALIGNANT NEOPLASM OF LARGE IN Disposition: HOME/ ROUTINE
[2018-10-01 11:20] VITALS: BP 125/79
== END 2018-10-01 11:45 | disposition home or self-care (01) ==
LOC: C.ENDO 08:10
PROVIDERS: ATTEND Internal Medicine Gastroenterology
DX: Z12.11 Encounter for screening for malignant neoplasm of colon (principal); Z85.038 Personal history of other malignant neoplasm of large intestine; I10 Essential (primary) hypertension; K57.30 Diverticulosis of large intestine without perforation or abscess without bleeding; K64.1 Second degree hemorrhoids; D12.2 Benign neoplasm of ascending colon; K63.5 Polyp of colon
CPT/HCPCS: 45380; 88305; J2704; J7040

== ENCOUNTER 2019-01-20 08:45 | Outpatient (CLI) | payer MEDICARE | END 2019-01-20 08:46 | disposition home or self-care (01) | LOC: C.CARD 08:45 ==